=== PATIENT | female | born 1985 | race African-American/Black ===

== ENCOUNTER 2019-01-24 20:00 | Emergency (ER) | payer OTHER ==
[~2019-01-24] VITALS: Ht 162.6 cm; Wt 89.8 kg
--- OUTSIDE RECORDS SUMMARY | 2019-01-24 20:02 | XMS REPORT | Clinical Summary ---
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 Active folic acid (FOLVITE) 1 MG Take 1 mg by 0 tablet mouth daily. Active HYDROcodone-acetaminophen Take 1 tablet 0 (NORCO) 10-325 mg per by mouth tablet every 6 (six) hours as needed for moderate pain. Active hydroxyurea (HYDREA) 500 Take 1,000 mg 0 mg capsule by mouth daily. Active morPHINE (MSIR) 15 MG Take 30 mg by 0 tablet mouth every 6 (six) hours as needed for severe pain. 01/28/2018 Discontinued folic acid (FOLVITE) 1 MG Take 1 mg by 0 tablet mouth daily. 01/28/2018 Discontinued morPHINE (MSIR) 15 MG Take 30 mg by 0 tablet mouth every 6 (six) hours as needed for severe pain. 01/28/2018 Discontinued ALPRAZolam (XANAX) 1 MG Take 1 mg by 0 tablet mouth 3 (three) times a day as needed for anxiety. 01/28/2018 Discontinued cyclobenzaprine Take 10 mg by 0 (FLEXERIL) 10 mg tablet mouth 3 (three) times a day as needed for muscle spasms. 01/28/2018 Discontinued HYDROcodone-acetaminophen Take 1 tablet 0 (NORCO) 10-325 mg per by mouth tablet every 6 (six) hours as needed for moderate pain. 01/28/2018 Discontinued gabapentin (NEURONTIN) Take 300 mg 0 300 mg capsule by mouth 3 (three) times a day. 01/28/2018 Discontinued carisoprodol (SOMA) 350 TK 1 T PO QID 3 MG tablet 8 01/28/2018 Discontinued furosemide (LASIX) 40 mg TK 1 T PO 5 tablet UTD 8 01/28/2018 Discontinued hydroxyurea (HYDREA) 500 TK 4 CS PO D 5 mg capsule 8 Active Problems Problem Noted Date Acute cystitis without hematuria 01/29/2018 Sickle-cell crisis 01/29/2017 Sickle cell crisis 11/03/2016 Sickle cell anemia 07/23/2016 Headache 07/23/2016 Sickle cell pain crisis 04/28/2016 Encounters Care Team Description Date Type Specialty Rehrer, DO Nikunj Velazco Dhruti Bharatbhai, MD Bavare, Elayne Aragon MD Sickle cell crisis (Primary Dx); Urinary tract infection without hematuria, site unspecified 01/28/2018 Hospital Emergency Medicine Encounter N/A 01/28/2018 Intake Access after 01/23/2018 Family History Medical History Relation Name Comments Heart disease Father No Known Problems Mother Relation Name Status Comments Father Mother Social History Date Tobacco Use Types Packs/Day Years Used Never Smoker Alcohol Use Drinks/Week oz/Week Comments No Sex Assigned at Date Recorded Not on file Industry Job Start Date Occupation Not on file Not on file Not on file Travel End Travel History Travel Start No recent travel history available. Last Filed Vital Signs Time Taken Vital Sign Reading 01/28/2018 7:37 PM CDT Blood Pressure 117/68 01/28/2018 7:37 PM CDT Pulse 69 01/28/2018 1:20 PM CDT Temperature 37 C (98.6 F) 01/28/2018 7:37 PM CDT Respiratory Rate 16 01/28/2018 7:37 PM CDT Oxygen Saturation 100% - Inhaled Oxygen - Concentration - Weight - - Height - - Body Mass Index - Plan of Treatment Health Maintenance Due Date Last Done Comments INFLUENZA VACCINE 02/04/2019 Procedures Comments Procedure Name Priority Date/Time Associated Diagnosis TRANSFUSE RED BLOOD CELLS Routine 03/11/2018 5:32 PM CDT TRANSFUSE RED BLOOD CELLS Routine 03/11/2018 5:32 PM CDT TRANSFUSE RED BLOOD CELLS Routine 03/11/2018 5:29 PM CDT TRANSFUSE RED BLOOD CELLS Routine 03/11/2018 5:23 PM CDT URINALYSIS SCREEN AND STAT 01/28/2018 MICROSCOPY, WITH REFLEX 2:54 PM CDT TO CULTURE URINE DRUGS OF ABUSE STAT 01/28/2018 SCREEN 2:54 PM CDT GRAM STAIN STAT 01/28/2018 2:54 PM CDT URINE CULTURE STAT 01/28/2018 2:54 PM CDT ZZESTIMATED GFR STAT 01/28/2018 2:30 PM CDT LDH STAT 01/28/2018 2:30 PM CDT LIPASE LEVEL STAT 01/28/2018 2:30 PM CDT COMPREHENSIVE METABOLIC STAT 01/28/2018 PANEL 2:30 PM CDT RETICULOCYTE COUNT STAT 01/28/2018 2:30 PM CDT HC COMPLETE BLD COUNT STAT 01/28/2018 W/AUTO DIFF 2:30 PM CDT after 01/23/2018 Results * Transfuse RBC (03/11/2018 5:32 PM CDT) Only the most recent of 4 results within the time period is included. * Urinalysis screen and microscopy, with reflex to culture (01/28/2018 2:54 PM CDT) Specimen site Clean catch [facility] OF PATHOLOGY AND GENOMIC MEDICINE Color, UA Yellow [facility] OF [facility]OLOGY [facility] GENOMIC MEDICINE Appearance, UA Clear [facility] OF PATHOLOGY AND GENOMIC MEDICINE Specific 1.011 1.001 - 1.035 [facility] gravity, OF PATHOLOGY AND GENOMIC MEDICINE pH, UA 7.0 5.0 - 8.5 [facility] OF PATHOLOGY AND GENOMIC MEDICINE Protein, UA Negative Negative [facility] OF PATHOLOGY AND GENOMIC MEDICINE Glucose, UA Negative Negative [facility] OF PATHOLOGY AND GENOMIC MEDICINE Ketones, UA Negative Negative [facility] OF PATHOLOGY AND GENOMIC MEDICINE Bilirubin, UA Negative Negative [facility] OF PATHOLOGY AND GENOMIC MEDICINE Blood, UA Negative Negative [facility] OF PATHOLOGY AND GENOMIC MEDICINE Nitrite, UA Negative Negative [facility] OF PATHOLOGY AND GENOMIC MEDICINE Urobilinogen, 4.0 (A) <2.0 [facility] UA OF PATHOLOGY AND GENOMIC MEDICINE Leukocyte Small (A) Negative [facility] esterase, UA OF PATHOLOGY AND GENOMIC MEDICINE Epithelial 1 /HPF [facility] cells, UA OF PATHOLOGY AND GENOMIC MEDICINE WBC, UA 20 (H) 0 - 4 /HPF [facility] OF PATHOLOGY AND GENOMIC MEDICINE RBC, UA 2 0 - 5 /HPF [facility] OF PATHOLOGY AND GENOMIC MEDICINE Bacteria, UA Moderate (A) None seen [facility] OF PATHOLOGY AND GENOMIC MEDICINE Yeast, UA None seen [facility] OF PATHOLOGY AND GENOMIC MEDICINE Yeast with None seen [facility] pseudohyphae, OF PATHOLOGY UA AND GENOMIC MEDICINE Specimen Urine Performing Organization Address City/[facility] [address]/[facility] Phone [facility] OF [address] [place] [phone] PATHOLOGY AND [facility] * Urine drugs of abuse screen (01/28/2018 2:54 PM CDT) Amphetamine Negative [facility] screen, urine OF PATHOLOGY AND GENOMIC MEDICINE Barbiturate Negative [facility] screen, urine OF PATHOLOGY AND GENOMIC MEDICINE Benzodiazepine Negative [facility] screen, urine OF PATHOLOGY AND GENOMIC MEDICINE Cannabinoid Negative [facility] screen, urine OF PATHOLOGY AND [facility] Cocaine screen, Negative [facility] urine OF PATHOLOGY AND GENOMIC MEDICINE Methadone Negative [facility] metabolite OF PATHOLOGY (EDDP), urine AND GENOMIC MEDICINE Opiates screen, Negative [facility] urine OF PATHOLOGY AND GENOMIC MEDICINE Oxycodone Negative [facility] screen, urine OF PATHOLOGY AND [facility] Phencyclidine Negative [facility] screen, urine OF PATHOLOGY AND [facility] Tricyclic Negative [facility] screen, urine Comment: OF PATHOLOGY Drug screen minimum AND GENOMIC concentration of detectability MEDICINE Amphetamines 1000 ng/mL Barbiturates 200 ng/mL Benzodiazepines 300 ng/mL Cocaine 300 ng/mL Methadone 300 ng/mL Opiates 300 ng/mL Oxycodone 300 ng/mL Phencyclidine 25 ng/mL Cannabinoids 50 ng/mL Tricyclics 1000 ng/mL Negative test results indicates presumptive evidence of lack of clinically significant drug concentration in this urine specimen. Positive test results are presumptive evidence of clinically significant drug concentration in this urine specimen. Testing performed for medical purposes only. Specimen Urine Performing Organization Address City/[facility] [address]/[facility] Phone Number [facility] OF [address] [place] [phone] PATHOLOGY AND [facility] * Gram stain (01/28/2018 2:54 PM CDT) Gram stain Few WBC's [facility] result Occasional Gram negative rods OF PATHOLOGY Comment: AND GENOMIC Specimen Information MEDICINE Specimen Source: Urine Specimen Site: Clean catch Specimen Urine Performing Organization Address City/[facility] [address]/Zipcode Phone Number [facility] OF [address] [place] [address] PATHOLOGY AND GENOMIC MEDICINE * Urine culture (01/28/2018 2:54 PM CDT) Urine culture Escherichia coli [facility] isolate >10-5 cfu/ml OF PATHOLOGY (A) AND GENOMIC Comment: MEDICINE Specimen Information Specimen Source: Urine Specimen Site: Clean catch Specimen Urine Antibiotic Method Susceptibility Organism Ampicillin ALBERTINA >16 mcg/mL: Resistant Escherichia coli Amoxicillin/Clavulanate ALBERTINA 8/4 mcg/mL: Susceptible Escherichia coli Amikacin ALBERTINA <=4 mcg/mL: Susceptible Escherichia coli Aztreonam ALBERTINA <=1 mcg/mL: Susceptible Escherichia coli Ceftazidime ALBERTINA <=0.5 mcg/mL: Susceptible Escherichia coli Ciprofloxacin ALBERTINA >2 mcg/mL: Resistant Escherichia coli Ceftriaxone ALBERTINA <=0.5 mcg/mL: Susceptible Escherichia coli Cefuroxime Sodium ALBERTINA <=4 mcg/mL: Susceptible Escherichia coli Cefazolin ALBERTINA 2 mcg/mL: Susceptible Escherichia coli Cefepime ALBERTINA <=0.5 mcg/mL: Susceptible Escherichia coli Nitrofurantoin ALBERTINA <=16 mcg/mL: Susceptible Escherichia coli Cefoxitin ALBERTINA <=4 mcg/mL: Susceptible Escherichia coli Gentamicin ALBERTINA <=1 mcg/mL: Susceptible Escherichia coli Imipenem ALBERTINA <=0.25 mcg/mL: Susceptible Escherichia coli Levofloxacin ALBERTINA >4 mcg/mL: Resistant Escherichia coli Meropenem ALBERTINA <=0.125 mcg/mL: Susceptible Escherichia coli Tobramycin ALBERTINA 1 mcg/mL: Susceptible Escherichia coli Ampicillin/Sulbactam ALBERTINA 16/8 mcg/mL: Resistant Escherichia coli Trimethoprim/Sulfamethoxazole ALBERTINA <=0.5/9.5 mcg/mL: Susceptible Escherichia coli Tetracycline ALBERTINA <=1 mcg/mL: Susceptible Escherichia coli Piperacillin/Tazobactam ALBERTINA <=2/4 mcg/mL: Susceptible Escherichia coli Ertapenem ALBERTINA <=0.125 mcg/mL: Susceptible Escherichia coli Tigecycline ALBERTINA <=0.5 mcg/mL: Susceptible Escherichia coli Performing Organization Address City/[facility] [address]/Zipcode Phone Number [facility] OF [address] [place] [address] PATHOLOGY AND GENOMIC MEDICINE * Estimated GFR (01/28/2018 2:30 PM CDT) [facility] GFR Non Af Amer >90 mL/min/1.73 m2 [facility] OF PATHOLOGY AND GENOMIC MEDICINE GFR Af Amer >90 mL/min/1.73 m2 [facility] Comment: OF PATHOLOGY Chronic kidney disease: <60 AND GENOMIC mL/min/1.73m2 MEDICINE Kidney failure: <15 mL/min/1.73m2 The estimated GFR is calculated from the IDMS-traceable Modification of Diet in Renal Disease Equation. The accuracy of the calculation is poor when the creatinine is normal. Calculated values >90 mL/min/1.73m2 are not reported. This equation has not been validated in children (<18 years), women, the elderly (>70 years), or ethnic groups other than Caucasians and Americans. Specimen Plasma specimen Performing Organization Address City/[facility] [address]/[facility] [place] [address] PATHOLOGY [facility] * Reticulocyte count (01/28/2018 2:30 PM CDT) [facility] Retic %, auto 11.1 (H) 0.5 - 2.1 % [facility] OF PATHOLOGY AND GENOMIC MEDICINE Retic absolute, 0.3892 (H) 0.0210 - 0.1155 m/uL [facility] auto OF PATHOLOGY AND GENOMIC MEDICINE Specimen Blood Performing Organization Address City/[facility] [address]/[facility] [place] [address] PATHOLOGY [facility] GENOMIC [facility] * CBC with platelet and differential (01/28/2018 2:30 PM CDT) [facility] WBC 7.64Comment: WBC was corrected 4.50 - 11.00 k/uL [facility] for NRBCs OF PATHOLOGY AND GENOMIC MEDICINE RBC 3.50 (L) 4.20 - 5.50 m/uL [facility] OF PATHOLOGY AND GENOMIC MEDICINE HGB 9.6 (L) 12.0 - 16.0 g/dL [facility] OF PATHOLOGY AND GENOMIC MEDICINE HCT 30.0 (L) 37.0 - 47.0 % [facility] OF PATHOLOGY AND GENOMIC MEDICINE MCV 85.7 82.0 - 100.0 fL [facility] OF PATHOLOGY AND GENOMIC MEDICINE MCH 27.4 27.0 - 34.0 pg [facility] OF PATHOLOGY AND GENOMIC MEDICINE MCHC 32.0 31.0 - 37.0 g/dL [facility] OF PATHOLOGY AND GENOMIC MEDICINE RDW - SD 63.2 (H) 37.0 - 55.0 fL [facility] OF PATHOLOGY AND GENOMIC MEDICINE MPV 9.5 8.8 - 13.2 fL [facility] OF PATHOLOGY AND GENOMIC MEDICINE Platelet count 284 150 - 400 k/uL [facility] OF PATHOLOGY AND GENOMIC MEDICINE Nucleated RBC 1.00 /100 WBC [facility] OF PATHOLOGY AND GENOMIC MEDICINE Neutrophils 57.0 39.0 - 69.0 % [facility] OF PATHOLOGY AND GENOMIC MEDICINE Lymphocytes 31.9 25.0 - 45.0 % [facility] OF PATHOLOGY AND GENOMIC MEDICINE Monocytes 8.9 0.0 - 10.0 % [facility] OF PATHOLOGY AND GENOMIC MEDICINE Eosinophils 0.4 0.0 - 5.0 % [facility] OF PATHOLOGY AND GENOMIC MEDICINE Basophils 1.3 (H) 0.0 - 1.0 % [facility] OF PATHOLOGY AND GENOMIC MEDICINE Immature 0.5Comment: "Immature 0.0 - 1.0 % [facility] granulocytes granulocytes" (promyelocytes, OF PATHOLOGY myelocytes, metamyelocytes) AND GENOMIC MEDICINE Specimen Blood Performing Organization Address City/[facility] [address]/[place] [address] PATHOLOGY AND GENOMIC MEDICINE * Lipase level (01/28/2018 2:30 PM CDT) Lipase 16 13 - 60 U/L [facility] OF PATHOLOGY AND GENOMIC MEDICINE Specimen Plasma specimen Performing Organization Address City/[facility] [address]/[facility] [place] [address] PATHOLOGY AND GENOMIC MEDICINE * LDH (01/28/2018 2:30 PM CDT) LDH 340 (H) 87 - 225 U/L [facility] OF PATHOLOGY AND GENOMIC MEDICINE Specimen Plasma specimen Performing Organization Address City/[facility] [address]/[place] [address] PATHOLOGY AND GENOMIC MEDICINE * Comprehensive metabolic panel (01/28/2018 2:30 PM CDT) Sodium 137 135 - 148 mEq/L [facility] OF PATHOLOGY AND GENOMIC MEDICINE Potassium 4.0 3.5 - 5.0 mEq/L [facility] OF PATHOLOGY AND GENOMIC MEDICINE Chloride 103 98 - 112 mEq/L [facility] OF PATHOLOGY AND GENOMIC MEDICINE CO2 22 (L) 24 - 31 mEq/L [facility] OF PATHOLOGY AND GENOMIC MEDICINE Anion gap 12@ANIO 7 - 15 mEq/L [facility] OF PATHOLOGY AND GENOMIC MEDICINE BUN 7 6 - 20 mg/dL [facility] OF PATHOLOGY AND GENOMIC MEDICINE Creatinine 0.6 0.5 - 0.9 mg/dL [facility] OF PATHOLOGY AND GENOMIC MEDICINE Glucose 101 (H) 65 - 99 mg/dL [facility] OF PATHOLOGY AND GENOMIC MEDICINE Calcium 8.6 8.3 - 10.2 mg/dL [facility] OF PATHOLOGY AND GENOMIC MEDICINE Protein 8.4 (H) 6.3 - 8.3 g/dL [facility] Comment: OF PATHOLOGY [place] AND GENOMIC 4.6-7.0 g/dL MEDICINE 1 week 4.4-7.6 g/dL 7 months-1year 5.1-7.3 g/dL 1-2 years5.6-7 .5 g/dL >3 years6.0-8 .0 g/dL 18-150 6.3-8.3 g/dL Albumin 3.6 3.5 - 5.0 g/dL [facility] OF PATHOLOGY AND GENOMIC MEDICINE A/G ratio 0.8 0.7 - 3.8 [facility] OF PATHOLOGY AND GENOMIC MEDICINE Alkaline 81 35 - 104 U/L [facility] phosphatase OF PATHOLOGY AND GENOMIC MEDICINE AST 32 10 - 35 U/L [facility] OF PATHOLOGY AND GENOMIC MEDICINE ALT 23 5 - 50 U/L [facility] OF PATHOLOGY AND GENOMIC MEDICINE Total bilirubin 1.5 (H) 0.0 - 1.2 mg/dL [facility] OF PATHOLOGY AND GENOMIC MEDICINE Specimen Plasma specimen Performing Organization Address City/[facility] [address]/Zipcomd Phone Number [facility] OF [address] [place] [address] PATHOLOGY AND GENOMIC MEDICINE after 01/23/2018 Insurance Type Payer Benefit Subscriber ID Effective Phone Address Plan / Dates Group O [employer] xxxxxxxxx [id number] [employer] [facility] Advance Directives Patient has advance care planning documents on file. For more information, pleas e contact: Jan Warren [address] [place] [address]
--- OUTSIDE RECORDS SUMMARY | 2019-01-24 20:02 | XMS REPORT | Clinical Summary ---
Author Author [place] [facility] Organization [facility] Address Unknown Phone Unavailable Care Team Providers Care Drawer Liner Name Role Phone Farhan Torres MD PCP Unavailable Sharpless Unavailable Allergies No Known Allergies Medications End Date Status Medication Sig Dispensed Refills Start Date Active hydroxyurea (HYDREA) 500 Take 500 mg 0 mg capsule by mouth daily . Active folic acid (FOLVITE) 1 MG Take 1 tablet 30 tablet 1 tablet (1 mg total) 3 by mouth daily. Active gabapentin (NEURONTIN) TK 1 C PO TID 5 300 MG capsule 8 Active morphine (MSIR) 30 MG Take 1 tablet 100 tablet 0 tablet (30 mg total) 9 by mouth every 4 (four) hours as needed for Pain. Max Daily Amount: 180 mg Active HYDROcodone-acetaminophen Take 1 tablet 30 tablet 0 (NORCO 10-325) 10-325 mg by mouth 9 per tablet every 6 (six) hours as needed for Pain. Max Daily Amount: 4 tablets 07/17/2018 Discontinued morphine (MSIR) 30 MG Take 30 mg by 0 tablet mouth every 4 (four) hours as needed for Pain. 12/29/2018 Discontinued ibuprofen (ADVIL,MOTRIN) Take 800 mg 0 600 MG tablet by mouth every 6 (six) hours as needed for Pain . 03/09/2018 Discontinued polyethylene glycol Use once to 0 (GLYCOLAX) 17 gram packet twice a day 7 per package instructions. Is over the counter. 07/17/2018 Discontinued HYDROcodone-acetaminophen Take 1 tablet 0 (NORCO 10-325) 10-325 mg by mouth per tablet every 6 (six) hours as needed for Pain. 04/08/2018 guaiFENesin (MUCINEX) 600 Take 1 tablet 60 tablet 0 mg 12 hr tablet (600 mg 8 total) by mouth 2 (two) times daily as needed for Congestion for up to 30 days. 03/16/2018 ondansetron (ZOFRAN-ODT) Take 2 20 tablet 0 4 MG disintegrating tablets (8 mg 8 tablet total) by mouth every 8 (eight) hours as needed for up to 7 days. 03/16/2018 levoFLOXacin (LEVAQUIN) Take 1 tablet 6 tablet 0 500 MG tablet (500 mg 8 total) by mouth daily for 6 days. 07/02/2018 Discontinued carisoprodol (SOMA) 350 Take 350 mg 0 MG tablet by mouth. 07/17/2018 Discontinued carisoprodol (SOMA) 350 TK 1 T PO QID 0 MG tablet 8 01/03/2019 Discontinued carisoprodol (SOMA) 350 Take 1 tablet 30 tablet 0 MG tablet (350 mg 9 total) by mouth 4 (four) times daily. Max Daily Amount: 1,400 mg 01/03/2019 Discontinued HYDROcodone-acetaminophen Take 1 tablet 30 tablet 0 (NORCO 10-325) 10-325 mg by mouth 9 per tablet every 6 (six) hours as needed for Pain. Max Daily Amount: 4 tablets 09/07/2018 Discontinued naproxen (NAPROSYN) 500 Take 1 tablet 30 tablet 0 MG tablet (500 mg 9 total) by mouth 2 (two) times daily with breakfast and dinner. 01/03/2019 Discontinued morphine (MSIR) 15 MG Take 30 mg by 0 tablet mouth every 4 (four) hours as needed for Pain. 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 Sickle cell crisis 05/18/2013 Sickle cell pain crisis 02/12/2013 Headache 02/12/2013 Encounters Care Team Description Date Type Specialty 12/30/2018 Travel Fannie Zarco MD Giveon, Ron, MD Kazim, Vickie Stallings MD Sickle cell pain crisis (HCC) (Primary Dx); Acute cystitis without hematuria 12/29/2018 Hospital General Internal Medicine - Encounter 01/03/2019 Butch Sandoval DO Sickle cell crisis (HCC) (Primary Dx); Acute chest pain; Acute midline low back pain without sciatica; Bilateral leg pain 12/09/2018 Emergency Emergency Medicine 12/09/2018 Orders Only General Internal Medicine 12/09/2018 Travel 08/27/2018 Travel Jordan Moreno III, DO Hasan, Syed Ali Reza, MD Massumi, MD Ricarda Joe, MD Karin Washington, MD Marian Killian, Chandrakant Lin MD Sickle cell crisis (HCC) (Primary Dx); Anemia, unspecified type 08/26/2018 Hospital Oncology - Encounter 09/07/2018 08/26/2018 Travel Hunter Sandoval MD Sickle cell pain crisis (HCC) (Primary Dx); Sickle cell anemia with pain (HCC); Myalgia; Arthralgia, unspecified joint 08/06/2018 Emergency Emergency Medicine - 08/07/2018 Fannie Zarco MD Sickle cell pain crisis (HCC) (Primary Dx); Acute midline low back pain without sciatica; Pain in both lower extremities 08/04/2018 Emergency Emergency Medicine - 08/05/2018 08/04/2018 Travel 07/13/2018 Travel Amari Zafar MD Varughese, Roy, MD Daniel, Jamuna V., MD Sickle cell pain crisis (HCC) (Primary Dx); Hereditary hemolytic anemia (HCC) 07/12/2018 Hospital Oncology - Encounter 07/17/2018 07/12/2018 Travel 06/27/2018 Travel Kai Gilman MD Yoon, Alyssa Hyunna, MD Sickle cell pain crisis (HCC) (Primary Dx) 06/26/2018 Hospital Oncology - Encounter 07/02/2018 06/25/2018 Orders Only General Internal Medicine 06/25/2018 Travel Kai Gilman MD Yoon, Alyssa Hyunna, MD Daniel, Jamuna V., MD Hasan, Chandrakant Diamond MD Fever, unspecified fever cause (Primary Dx); Hb-SS disease with crisis (HCC) 03/05/2018 Hospital Oncology - Encounter 03/09/2018 03/04/2018 Orders Only General Internal Medicine David Epstein MD Hb-SS disease with crisis (HCC) (Primary Dx); Arthralgia, unspecified joint; Myalgia; Hypokalemia 02/19/2018 Emergency Emergency Medicine after 01/23/2018 Family History Medical History Relation Name Comments No Known Problem Brother Sickle cell anemia Daughter Diabetes Father No Known Problem Mother No Known Problem Sister Sickle cell anemia Son Relation Name Status Comments Brother Daughter Father Mother Sister Son Social History Date Tobacco Use Types Packs/Day Years Used Never Smoker Smokeless Tobacco: Never Used Alcohol Use Drinks/Week oz/Week Comments No Sex Assigned at Date Recorded Not on file Industry Job Start Date Occupation Not on file Not on file Not on file Travel End Travel History Travel Start No recent travel history available. Last Filed Vital Signs Time Taken Vital Sign Reading 01/03/2019 11:48 AM CDT Blood Pressure 106/58 01/03/2019 11:48 AM CDT Pulse 73 01/03/2019 11:48 AM CDT Temperature 37.2 C (99 F) 01/03/2019 1:31 PM CDT Respiratory Rate 18 01/03/2019 11:48 AM CDT Oxygen Saturation 98% 06/27/2018 12:35 AM TEAM PRIMARY CARE PHYSICIAN Inhaled Oxygen 21% Concentration 01/03/2019 6:00 AM CDT Weight 95 kg (209 lb 8 oz) 12/30/2018 5:38 AM CDT Height 162.6 cm (5' 4") 01/03/2019 6:00 AM CDT Body Mass Index 35.96 Plan of Treatment Not on file Procedures Comments Procedure Name Priority Date/Time Associated Diagnosis CBC W/PLT COUNT & AUTO Routine 01/03/2019 DIFFERENTIAL 5:47 AM CDT MAGNESIUM Routine 01/03/2019 5:47 AM CDT BASIC METABOLIC PANEL (7) Routine 01/03/2019 5:47 AM CDT CBC W/PLT COUNT & AUTO Routine 01/03/2019 DIFFERENTIAL 5:47 AM CDT TRANSFUSION SERVICE 01/02/2019 REPORT - SCAN 5:51 PM CDT CBC W/PLT COUNT & AUTO Routine 01/02/2019 DIFFERENTIAL 4:56 AM CDT MAGNESIUM Routine 01/02/2019 4:56 AM CDT BASIC METABOLIC PANEL (7) Routine 01/02/2019 4:56 AM CDT CBC W/PLT COUNT & AUTO Routine 01/02/2019 DIFFERENTIAL 4:56 AM CDT PREPARE LEUKO-REDUCED RBC Routine 01/01/2019 11:54 PM CDT TRANSFUSION SERVICE 01/01/2019 REPORT - SCAN 5:51 PM CDT CBC W/PLT COUNT & AUTO Routine 01/01/2019 DIFFERENTIAL 5:08 AM CDT MAGNESIUM Routine 01/01/2019 5:08 AM CDT BASIC METABOLIC PANEL (7) Routine 01/01/2019 5:08 AM CDT CBC W/PLT COUNT & AUTO Routine 01/01/2019 DIFFERENTIAL 5:08 AM CDT ANTIBODY IDENTIFICATION Routine 12/31/2018 6:28 PM CDT TRANSFUSE LEUKO-REDUCED Routine 12/31/2018 RED BLOOD CELLS 5:50 PM CDT TYPE AND SCREEN, Routine 12/31/2018 AUTOMATED 9:41 AM CDT MAGNESIUM Routine 12/31/2018 9:41 AM CDT BASIC METABOLIC PANEL (7) Routine 12/31/2018 9:41 AM CDT CBC W/PLT COUNT & AUTO Routine 12/31/2018 DIFFERENTIAL 4:13 AM CDT CBC W/PLT COUNT & AUTO Routine 12/31/2018 DIFFERENTIAL 4:13 AM CDT BLOOD CULTURE Routine 12/31/2018 4:13 AM CDT US RENAL COMPLETE Routine 12/30/2018 5:59 PM CDT URINALYSIS W/ REFLEX STAT 12/30/2018 URINE CULTURE 12:18 AM CDT URINE CULTURE STAT 12/30/2018 12:18 AM CDT RETICULOCYTE COUNT STAT 12/29/2018 11:15 PM CDT CBC W/PLT COUNT & AUTO STAT 12/29/2018 DIFFERENTIAL 10:39 PM CDT SCREEN, URINE STAT 12/29/2018 10:39 PM CDT CBC W/PLT COUNT & AUTO STAT 12/29/2018 DIFFERENTIAL 10:39 PM CDT BASIC METABOLIC PANEL (7) STAT 12/29/2018 10:39 PM CDT XR CHEST 1 VIEW STAT 12/29/2018 PORTABLE/BEDSIDE 10:12 PM CDT REPORT OF PROCEDURE - 12/10/2018 ENDOSCOPY SCAN 11:00 AM CDT ED ECG INTERPRETATION Routine 12/09/2018 1:07 PM CDT XR CHEST PA OR AP 1 VIEW STAT 12/09/2018 IN DEPT. 12:46 PM CDT ECG 12-LEAD Routine 12/09/2018 12:44 PM CDT Procedure Note - Interface, External Ris In - 12/09/2018 8:57 PM CDT Ventricula r Rate 83 BPM Atrial Rate 83 BPM P-R Interval 154 ms QRS Duration 76 ms Q-T Interval 380 ms QTC Calculatio n(Bazett) 446 ms P [place] 43 degrees R [place] 14 degrees T [place] 5 degrees Normal sinus rhythm Minimal voltage criteria for LVH, may be normal variant Borderline ECG When compared with ECG of 9 11:50, T wave inversion no longer evident in Anterior leads ECG 12-LEAD STAT 12/09/2018 12:44 PM CDT CBC W/PLT COUNT & AUTO STAT 12/09/2018 DIFFERENTIAL 12:38 PM CDT RAPID TROPONIN I STAT 12/09/2018 12:38 PM CDT RETICULOCYTE COUNT STAT 12/09/2018 12:38 PM CDT PT/APTT STAT 12/09/2018 12:38 PM CDT COMPREHENSIVE METABOLIC STAT 12/09/2018 PANEL 12:38 PM CDT CBC W/PLT COUNT & AUTO STAT 12/09/2018 DIFFERENTIAL 12:38 PM CDT SCREEN, URINE STAT 12/09/2018 12:38 PM CDT URINALYSIS W/ MICROSCOPIC STAT 12/09/2018 12:38 PM CDT ECHOCARDIOGRAM REPORT - 09/06/2018 SCAN 9:20 PM TEAM PRIMARY CARE PHYSICIAN 2D ECHO W/ DOPPLER MONIQUE 09/06/2018 (CW/PW/COLOR) 2:14 PM TEAM PRIMARY CARE PHYSICIAN (CELLAVISION MANUAL DIFF) Routine 09/06/2018 4:07 AM TEAM PRIMARY CARE PHYSICIAN CBC W/PLT COUNT & AUTO Routine 09/06/2018 DIFFERENTIAL 4:07 AM TEAM PRIMARY CARE PHYSICIAN CBC W/PLT COUNT & AUTO Routine 09/06/2018 DIFFERENTIAL 4:07 AM TEAM PRIMARY CARE PHYSICIAN CT CHEST PE TEST DESIGN MONIQUE 09/05/2018 5:18 PM TEAM PRIMARY CARE PHYSICIAN D-DIMER Routine 09/04/2018 6:15 PM TEAM PRIMARY CARE PHYSICIAN CBC W/PLT COUNT & AUTO Routine 09/04/2018 DIFFERENTIAL 3:06 AM TEAM PRIMARY CARE PHYSICIAN CBC W/PLT COUNT & AUTO Routine 09/04/2018 DIFFERENTIAL 3:06 AM TEAM PRIMARY CARE PHYSICIAN SCREEN, URINE Routine 09/03/2018 2:44 PM TEAM PRIMARY CARE PHYSICIAN XR CHEST 1 VIEW MONIQUE 09/03/2018 PORTABLE/BEDSIDE 12:37 PM TEAM PRIMARY CARE PHYSICIAN ECG 12-LEAD Routine 09/03/2018 11:50 AM TEAM PRIMARY CARE PHYSICIAN CBC W/PLT COUNT & AUTO Routine 09/02/2018 DIFFERENTIAL 5:04 AM TEAM PRIMARY CARE PHYSICIAN CBC W/PLT COUNT & AUTO Routine 09/02/2018 DIFFERENTIAL 5:04 AM TEAM PRIMARY CARE PHYSICIAN BASIC METABOLIC PANEL (7) Routine 09/02/2018 5:04 AM TEAM PRIMARY CARE PHYSICIAN CBC W/PLT COUNT & AUTO Routine 09/01/2018 DIFFERENTIAL 4:15 AM TEAM PRIMARY CARE PHYSICIAN CBC W/PLT COUNT & AUTO Routine 09/01/2018 DIFFERENTIAL 4:15 AM TEAM PRIMARY CARE PHYSICIAN BASIC METABOLIC PANEL (7) Routine 09/01/2018 4:15 AM TEAM PRIMARY CARE PHYSICIAN BASIC METABOLIC PANEL (7) Routine 08/31/2018 4:57 AM TEAM PRIMARY CARE PHYSICIAN XR CHEST 1 VIEW STAT 08/31/2018 PORTABLE/BEDSIDE 3:45 AM TEAM PRIMARY CARE PHYSICIAN URINALYSIS W/ REFLEX Routine 08/30/2018 URINE CULTURE 11:49 AM TEAM PRIMARY CARE PHYSICIAN URINE CULTURE Routine 08/30/2018 11:49 AM TEAM PRIMARY CARE PHYSICIAN BASIC METABOLIC PANEL (7) Routine 08/30/2018 9:03 AM TEAM PRIMARY CARE PHYSICIAN XR HIP LEFT 2 VIEW Routine 08/29/2018 12:26 PM TEAM PRIMARY CARE PHYSICIAN XR HIP RIGHT 2 VIEW Routine 08/29/2018 12:21 PM TEAM PRIMARY CARE PHYSICIAN CBC W/PLT COUNT & AUTO Routine 08/29/2018 DIFFERENTIAL 6:02 AM TEAM PRIMARY CARE PHYSICIAN CBC W/PLT COUNT & AUTO Routine 08/29/2018 DIFFERENTIAL 6:02 AM TEAM PRIMARY CARE PHYSICIAN BASIC METABOLIC PANEL (7) Routine 08/29/2018 6:02 AM TEAM PRIMARY CARE PHYSICIAN BASIC METABOLIC PANEL (7) Routine 08/28/2018 7:17 AM TEAM PRIMARY CARE PHYSICIAN CBC W/PLT COUNT & AUTO Routine 08/28/2018 DIFFERENTIAL 4:44 AM TEAM PRIMARY CARE PHYSICIAN CBC W/PLT COUNT & AUTO Routine 08/28/2018 DIFFERENTIAL 4:44 AM TEAM PRIMARY CARE PHYSICIAN CBC W/PLT COUNT & AUTO Routine 08/27/2018 DIFFERENTIAL 4:58 AM TEAM PRIMARY CARE PHYSICIAN RETICULOCYTE COUNT Routine 08/27/2018 4:58 AM TEAM PRIMARY CARE PHYSICIAN CBC W/PLT COUNT & AUTO Routine 08/27/2018 DIFFERENTIAL 4:58 AM TEAM PRIMARY CARE PHYSICIAN HEPATIC FUNCTION PANEL Routine 08/27/2018 4:58 AM TEAM PRIMARY CARE PHYSICIAN BASIC METABOLIC PANEL (7) Routine 08/27/2018 4:58 AM TEAM PRIMARY CARE PHYSICIAN CBC W/PLT COUNT & AUTO STAT 08/26/2018 DIFFERENTIAL 8:26 PM TEAM PRIMARY CARE PHYSICIAN RETICULOCYTE COUNT STAT 08/26/2018 8:26 PM TEAM PRIMARY CARE PHYSICIAN PT/APTT STAT 08/26/2018 8:26 PM TEAM PRIMARY CARE PHYSICIAN COMPREHENSIVE METABOLIC STAT 08/26/2018 PANEL 8:26 PM TEAM PRIMARY CARE PHYSICIAN CBC W/PLT COUNT & AUTO STAT 08/26/2018 DIFFERENTIAL 8:26 PM TEAM PRIMARY CARE PHYSICIAN RAPID DRUG SCREEN, URINE STAT 08/06/2018 10:41 PM TEAM PRIMARY CARE PHYSICIAN CBC W/PLT COUNT & AUTO STAT 08/06/2018 DIFFERENTIAL 10:40 PM TEAM PRIMARY CARE PHYSICIAN RETICULOCYTE COUNT STAT 08/06/2018 10:40 PM TEAM PRIMARY CARE PHYSICIAN CBC W/PLT COUNT & AUTO STAT 08/06/2018 DIFFERENTIAL 10:40 PM TEAM PRIMARY CARE PHYSICIAN CBC W/PLT COUNT & AUTO STAT 08/04/2018 DIFFERENTIAL 11:55 PM TEAM PRIMARY CARE PHYSICIAN BASIC METABOLIC PANEL (7) STAT 08/04/2018 11:55 PM TEAM PRIMARY CARE PHYSICIAN RETICULOCYTE COUNT STAT 08/04/2018 11:55 PM TEAM PRIMARY CARE PHYSICIAN CBC W/PLT COUNT & AUTO STAT 08/04/2018 DIFFERENTIAL 11:55 PM TEAM PRIMARY CARE PHYSICIAN CBC (HEMOGRAM ONLY) Routine 07/17/2018 5:00 AM TEAM PRIMARY CARE PHYSICIAN BASIC METABOLIC PANEL (7) Routine 07/17/2018 5:00 AM TEAM PRIMARY CARE PHYSICIAN CBC (HEMOGRAM ONLY) Routine 07/16/2018 3:50 AM TEAM PRIMARY CARE PHYSICIAN BASIC METABOLIC PANEL (7) Routine 07/16/2018 3:50 AM TEAM PRIMARY CARE PHYSICIAN CBC (HEMOGRAM ONLY) Routine 07/15/2018 5:29 AM TEAM PRIMARY CARE PHYSICIAN BASIC METABOLIC PANEL (7) Routine 07/15/2018 5:29 AM TEAM PRIMARY CARE PHYSICIAN CBC (HEMOGRAM ONLY) Routine 07/14/2018 6:07 AM TEAM PRIMARY CARE PHYSICIAN BASIC METABOLIC PANEL (7) Routine 07/14/2018 6:07 AM TEAM PRIMARY CARE PHYSICIAN ECG 12-LEAD STAT 07/13/2018 11:59 AM TEAM PRIMARY CARE PHYSICIAN TROPONIN I STAT 07/13/2018 11:58 AM TEAM PRIMARY CARE PHYSICIAN CBC (HEMOGRAM ONLY) Routine 07/13/2018 6:10 AM TEAM PRIMARY CARE PHYSICIAN BASIC METABOLIC PANEL (7) Routine 07/13/2018 6:10 AM TEAM PRIMARY CARE PHYSICIAN XR CHEST 2 VIEWS STAT 07/12/2018 6:27 PM TEAM PRIMARY CARE PHYSICIAN CBC W/PLT COUNT & AUTO STAT 07/12/2018 DIFFERENTIAL 6:26 PM TEAM PRIMARY CARE PHYSICIAN RETICULOCYTE COUNT STAT 07/12/2018 6:26 PM TEAM PRIMARY CARE PHYSICIAN COMPREHENSIVE METABOLIC STAT 07/12/2018 PANEL 6:26 PM TEAM PRIMARY CARE PHYSICIAN CBC W/PLT COUNT & AUTO STAT 07/12/2018 DIFFERENTIAL 6:26 PM TEAM PRIMARY CARE PHYSICIAN SCREEN, URINE STAT 07/12/2018 4:22 PM TEAM PRIMARY CARE PHYSICIAN URINALYSIS W/ MICROSCOPIC STAT 07/12/2018 4:22 PM TEAM PRIMARY CARE PHYSICIAN TRANSFUSION SERVICE 07/02/2018 REPORT - SCAN 6:00 PM TEAM PRIMARY CARE PHYSICIAN BASIC METABOLIC PANEL (7) Routine 07/02/2018 6:25 AM TEAM PRIMARY CARE PHYSICIAN PREPARE LEUKO-REDUCED RBC Routine 07/01/2018 11:54 PM TEAM PRIMARY CARE PHYSICIAN TRANSFUSION SERVICE 07/01/2018 REPORT - SCAN 6:00 PM TEAM PRIMARY CARE PHYSICIAN ANTIBODY IDENTIFICATION Routine 07/01/2018 3:18 PM TEAM PRIMARY CARE PHYSICIAN LIPASE Routine 07/01/2018 12:37 PM TEAM PRIMARY CARE PHYSICIAN HEPATIC FUNCTION PANEL Routine 07/01/2018 12:37 PM TEAM PRIMARY CARE PHYSICIAN CBC (HEMOGRAM ONLY) Routine 07/01/2018 5:09 AM TEAM PRIMARY CARE PHYSICIAN BASIC METABOLIC PANEL (7) Routine 07/01/2018 5:09 AM TEAM PRIMARY CARE PHYSICIAN TRANSFUSE LEUKO-REDUCED Routine 06/30/2018 RED BLOOD CELLS 6:19 PM TEAM PRIMARY CARE PHYSICIAN TYPE AND SCREEN, Routine 06/30/2018 AUTOMATED 11:48 AM TEAM PRIMARY CARE PHYSICIAN CBC (HEMOGRAM ONLY) Routine 06/30/2018 4:18 AM TEAM PRIMARY CARE PHYSICIAN BASIC METABOLIC PANEL (7) Routine 06/30/2018 4:18 AM TEAM PRIMARY CARE PHYSICIAN BASIC METABOLIC PANEL (7) Routine 06/29/2018 7:08 AM TEAM PRIMARY CARE PHYSICIAN CBC (HEMOGRAM ONLY) Routine 06/29/2018 3:55 AM TEAM PRIMARY CARE PHYSICIAN CBC (HEMOGRAM ONLY) Routine 06/28/2018 4:49 AM TEAM PRIMARY CARE PHYSICIAN BASIC METABOLIC PANEL (7) Routine 06/28/2018 4:49 AM TEAM PRIMARY CARE PHYSICIAN BASIC METABOLIC PANEL (7) Routine 06/27/2018 5:32 AM TEAM PRIMARY CARE PHYSICIAN SCREEN, URINE STAT 06/26/2018 7:14 AM TEAM PRIMARY CARE PHYSICIAN URINALYSIS W/ REFLEX STAT 06/26/2018 URINE CULTURE 7:14 AM TEAM PRIMARY CARE PHYSICIAN XR CHEST 1 VIEW STAT 06/26/2018 PORTABLE/BEDSIDE 5:43 AM TEAM PRIMARY CARE PHYSICIAN CBC W/PLT COUNT & AUTO STAT 06/26/2018 DIFFERENTIAL 5:19 AM TEAM PRIMARY CARE PHYSICIAN RETICULOCYTE COUNT STAT 06/26/2018 5:19 AM TEAM PRIMARY CARE PHYSICIAN BASIC METABOLIC PANEL (7) STAT 06/26/2018 5:19 AM TEAM PRIMARY CARE PHYSICIAN CBC W/PLT COUNT & AUTO STAT 06/26/2018 DIFFERENTIAL 5:19 AM TEAM PRIMARY CARE PHYSICIAN ED ECG INTERPRETATION Routine 06/26/2018 5:06 AM TEAM PRIMARY CARE PHYSICIAN ECG 12-LEAD Routine 06/25/2018 10:53 PM TEAM PRIMARY CARE PHYSICIAN Procedure Note - Interface, External Ris In - 06/25/2018 11:03 PM TEAM PRIMARY CARE PHYSICIAN Ventricula r Rate 80 BPM Atrial Rate 80 BPM P-R Interval 154 ms QRS Duration 82 ms Q-T Interval 400 ms QTC Calculatio n(Bazett) 461 ms P [place] 40 degrees R [place] 21 degrees T [place] -3 degrees Normal sinus rhythm Nonspecifi c T wave abnormalit y Prolonged QT Abnormal ECG When compared with ECG of 8 22:46, No significan t change was found ECG 12-LEAD STAT 06/25/2018 10:53 PM TEAM PRIMARY CARE PHYSICIAN XR CHEST 2 VIEWS STAT 03/09/2018 9:08 AM CDT MAGNESIUM Routine 03/09/2018 4:58 AM CDT CBC (HEMOGRAM ONLY) Routine 03/09/2018 4:58 AM CDT BASIC METABOLIC PANEL (7) Routine 03/09/2018 4:58 AM CDT TRANSFUSION SERVICE 03/08/2018 REPORT - SCAN 6:00 PM CDT SPUTUM CULTURE + GRAM Routine 03/08/2018 STAIN 5:26 PM CDT MAGNESIUM Routine 03/08/2018 6:13 AM CDT CBC (HEMOGRAM ONLY) Routine 03/08/2018 6:13 AM CDT BASIC METABOLIC PANEL (7) Routine 03/08/2018 6:13 AM CDT PREPARE RBC STAT 03/07/2018 11:54 PM CDT CBC (HEMOGRAM ONLY) Routine 03/07/2018 10:36 AM CDT MAGNESIUM Routine 03/07/2018 5:35 AM CDT BASIC METABOLIC PANEL (7) Routine 03/07/2018 5:35 AM CDT TRANSFUSE LEUKO-REDUCED Routine 03/06/2018 RED BLOOD CELLS 9:11 PM CDT TRANSFUSION SERVICE 03/06/2018 REPORT - SCAN 6:01 PM CDT LEGIONELLA URINE ANTIGEN Routine 03/06/2018 5:55 PM CDT STREP PNEUMONIAE ANTIGEN Routine 03/06/2018 5:55 PM CDT MRSA SCREEN Routine 03/06/2018 5:50 PM CDT TRANSFUSE LEUKO-REDUCED Routine 03/06/2018 RED BLOOD CELLS 1:31 PM CDT CBC W/PLT COUNT & AUTO Routine 03/06/2018 DIFFERENTIAL 5:42 AM CDT HEPATIC FUNCTION PANEL Routine 03/06/2018 5:42 AM CDT IRON, TIBC, % SAT. Routine 03/06/2018 (WITHOUT FERRITIN) 5:42 AM CDT FERRITIN Routine 03/06/2018 5:42 AM CDT RETICULOCYTE COUNT Routine 03/06/2018 5:42 AM CDT CBC W/PLT COUNT & AUTO Routine 03/06/2018 DIFFERENTIAL 5:42 AM CDT MAGNESIUM Routine 03/06/2018 5:42 AM CDT BASIC METABOLIC PANEL (7) Routine 03/06/2018 5:42 AM CDT ANTIBODY IDENTIFICATION STAT 03/05/2018 4:32 PM CDT TYPE AND SCREEN, STAT 03/05/2018 AUTOMATED 6:[address] CHEST WITHOUT IV STAT 03/05/2018 CONTRAST 6:26 AM CDT URINALYSIS W/ REFLEX STAT 03/05/2018 URINE CULTURE 6:03 AM CDT URINE CULTURE STAT 03/05/2018 6:03 AM CDT BLOOD CULTURE STAT 03/05/2018 4:43 AM CDT ED ECG INTERPRETATION Routine 03/05/2018 4:27 AM CDT POCT-LACTIC ACID, VENOUS Routine 03/05/2018 3:53 AM CDT SCREEN, URINE STAT 03/05/2018 3:39 AM CDT BLOOD CULTURE STAT 03/05/2018 3:39 AM CDT CBC W/PLT COUNT & AUTO STAT 03/05/2018 DIFFERENTIAL 2:54 AM CDT RETICULOCYTE COUNT STAT 03/05/2018 2:54 AM CDT CREATINE KINASE (CK), STAT 03/05/2018 TOTAL AND MB 2:54 AM CDT PT/APTT STAT 03/05/2018 2:54 AM CDT CBC W/PLT COUNT & AUTO STAT 03/05/2018 DIFFERENTIAL 2:54 AM CDT TROPONIN I STAT 03/05/2018 2:54 AM CDT B-TYPE NATRIURETIC FACTOR STAT 03/05/2018 (BNP) 2:54 AM CDT MAGNESIUM STAT 03/05/2018 2:54 AM CDT BASIC METABOLIC PANEL (7) STAT 03/05/2018 2:54 AM CDT XR CHEST 1 VIEW STAT 03/04/2018 PORTABLE/BEDSIDE 11:59 PM CDT ECG 12-LEAD STAT 03/04/2018 10:46 PM CDT CBC W/PLT COUNT & AUTO STAT 02/19/2018 DIFFERENTIAL 3:55 PM CDT RETICULOCYTE COUNT STAT 02/19/2018 3:55 PM CDT C-REACTIVE PROTEIN STAT 02/19/2018 3:55 PM CDT CBC W/PLT COUNT & AUTO STAT 02/19/2018 DIFFERENTIAL 3:55 PM CDT BASIC METABOLIC PANEL (7) STAT 02/19/2018 3:55 PM CDT after 01/23/2018 Results * CBC with platelet count + automated diff (01/03/2019 5:47 AM CDT) Only the most recent of 21 results within the time period is included. WBC 7.6 3.5 - 10.5 K/L [facility] RBC 3.06 (L) 3.93 - 5.22 M/L [facility] Hemoglobin 8.5 (L) 11.2 - 15.7 GM/DL [facility] Hematocrit 26.4 (L) 34.1 - 44.9 % [facility] MCV 86.3 79.4 - 94.8 fL [facility] MCH 27.8 25.6 - 32.2 pg [facility] MCHC 32.2 32.2 - 35.5 GM/DL [facility] RDW 17.6 (H) 11.7 - 14.4 % [facility] Platelets 276 150 - 450 K/CU MM [facility] MPV 10.4 9.4 - 12.3 fL [facility] nRBC 0 0 - 0 /100 WBC [facility] % Neutros 54 % [facility] % Lymphs 31 % [facility] % Monos 8 % [facility] % Eos 5 % [facility] % Baso 1 % [facility] # Neutros 4.15 1.56 - 6.13 K/L [facility] # Lymphs 2.35 1.18 - 3.74 K/L [facility] # Monos 0.63 (H) 0.24 - 0.36 K/L [facility] # Eos 0.35 0.04 - 0.36 K/L [facility] # Baso 0.09 (H) 0.01 - 0.08 K/L [facility] Immature 1 0 - 1 % [facility] Granulocytes-Relative [facility] Specimen Blood Performing Organization Address City/[facility]/Zipcode Phone Number [facility] [address] [place] [address] [facility] * Magnesium (01/03/2019 5:47 AM CDT) Only the most recent of 9 results within the time period is included. Magnesium 1.7Comment: Specimen slightly 1.6 - 2.6 mg/dL [facility] hemolyzed [facility] Specimen Blood Performing Organization Address City/[facility]/Zipcode Phone Number [facility] [address] [place] [address] [facility] * Basic Metabolic Panel (01/03/2019 5:47 AM CDT) Only the most recent of 31 results within the time period is included. Sodium 136 136 - 145 meq/L [facility] Potassium 3.9Comment: Specimen slightly 3.5 - 5.1 meq/L [facility] Chloride 108 (H) 98 - 107 meq/L [facility] CO2 22 22 - 29 meq/L [facility] BUN 7 7 - 21 mg/dL [facility] Creatinine 0.69Comment: Specimen slightly 0.57 - 1.25 mg/dL [facility] Glucose 98 70 - 105 mg/dL [facility] Calcium 8.2 (L) 8.4 - 10.2 mg/dL [facility] EGFR 117Comment: ESTIMATED GFR IS mL/min/1.73 sq m [facility] NOT ACCURATE CREATININE [facility] CLEARANCE IN PREDICTING GLOMERULAR FILTRATION RATE. ESTIMATED GFR IS NOT APPLICABLE FOR DIALYSIS PATIENTS. Specimen Blood Performing Organization Address City/State/Zipcode Phone Number [place] [phone] [place] [phone] * TRANSFUSION SERVICE REPORT - SCAN (01/02/2019 5:51 PM CDT) Only the most recent of 6 results within the time period is included. Narrative Performed At * Prepare Leuko-Red RBC (01/01/2019 11:54 PM CDT) Only the most recent of 2 results within the time period is included. Unit ABO O Neg [place] UNIT NUMBER [id number] [facility] [place] Status TX_TIMEINCHART [facility] [place] [facility] Product RED BLOOD CELLS [place] PRODUCT CODE [id number] [place] [place] CROSSMATCH COMPATIBLE [facility] [place] Specimen Other Performing Organization Address City/State/[facility] [place] * Antibody identification (12/31/2018 6:28 PM CDT) Only the most recent of 3 results within the time period is included. ANTIBODY ID (Pro Player Connect) Anti-E SAFETRACE TX Anti-Fya UNID IgG Antibody Consult SIGNED OUTComment: Anti E SAFETRACE TX causes RBC injury, transfuse E negative RBCs.An IgG antibody of undetermined specificity is detected, transfuse crossmatch compatible RBCs. History of anti Fya.Electronic Signature: Angelina Melendez M.D. Specimen Performing Organization Address [facility] Phone Number SAFETRACE [place] * Transfuse Leuko-Red RBC (12/31/2018 5:50 PM CDT) Only the most recent of 6 results within the time period is included. * Type and screen, automated (12/31/2018 9:41 AM CDT) Only the most recent of 3 results within the time period is included. ABO/RH AUTOMATED (Pro Player Connect) B [facility] Ab Scrn POSITIVE [facility] Specimen Blood Performing Organization Address [facility] Phone Number [address] * Blood Culture - Routine (Left Venipuncture) (12/31/2018 4:13 AM CDT) Only the most recent of 3 results within the time period is included. Result No growth in 5 days [facility] Specimen Blood Performing Organization Address [facility] Phone Number [address] [address] [phone] [address] * US renal complete (12/30/2018 5:59 PM CDT) Specimen Narrative Performed At FINAL REPORT [facility] Renal ultrasound. Clinical History: recurrent UTI's. Comparison Study: CT scan of the chest dated September 05, 2018. Findings: The right kidney measures 11.7 x 4.9 x 5.3 cm and left kidney measures 12.1 x 6.0 x 5.8 cm. There is no evidence of hydronephrosis, nephrolithiasis or renal mass on either side. The echogenicity is mildly increased on the right side. The cortical thickness on the right side is 1.2 cm and on the left side is 1.9 cm. Color flow is documented to both kidneys. The bladder is partially filled with urine. Impression: Mildly echogenic right kidney. Otherwise unremarkable study. Signed: Sam Hall MD Report Verified Date/Time:12/30/2018 19:07:42 Reading Location: [address] Consult Reading Room Procedure Note Interface, External Ris In - 12/30/2018 7:09 PM CDT FINAL REPORT Renal ultrasound. Clinical History: recurrent UTI's. Comparison Study: CT scan of the chest dated September 05, 2018. Findings: The right kidney measures 11.7 x 4.9 x 5.3 cm and left kidney measures 12.1 x 6.0 x 5.8 cm. There is no evidence of hydronephrosis, nephrolithiasis or renal mass on either side. The echogenicity is mildly increased on the right side. The cortical thickness on the right side is 1.2 cm and on the left side is 1.9 cm. Color flow is documented to both kidneys. The bladder is partially filled with urine. Impression: Mildly echogenic right kidney. Otherwise unremarkable study. Signed: Sam Hall MD Report Verified Date/Time: 12/30/2018 19:07:42 Reading Location: [address] Consult Reading Room Performing Organization Address City/State/Zipcode Phone Number GE RIS * Urinalysis w/Microscopic + Reflex to Culture (12/30/2018 12:18 AM CDT) Only the most recent of 4 results within the time period is included. Color, UA Yellow [facility] Clarity, UA Slightly Cloudy [facility] Specific Irene, UA 1.015 1.001 - 1.035 [facility] [place] pH, UA 8.5 (H) 5.0 - 8.0 [facility] [place] Protein, UA Negative Negative [facility] [place] Glucose, UA Negative Negative [facility] Ketones, UA Negative Negative [facility], [facility] Bilirubin, UA Negative Negative [facility], [facility] Blood, UA Negative Negative [facility] Nitrite, UA Negative Negative [facility] Leukocytes, UA Small (A) Negative [facility], [facility] Urobilinogen, UA 1.0 0.2 - 1.0 mg/dL [facility] Bacteria, UA Few [facility] RBC, UA <5 /HPF [facility] WBC, UA 20-50 /HPF [facility] SQUAMOUS EPITHELIAL <5 /HPF [facility] Specimen Source [facility], [facility] Specimen Urine Performing Organization Address City/State/Zipcomi Phone Number [facility] [address] [place] [address] [facility], [facility], [facility], [facility] * Urine culture (12/30/2018 12:18 AM CDT) Only the most recent of 3 results within the time period is included. Result 40-49,000 col/mL Escherichia [facility] coli (A) [facility] Specimen Urine Antibiotic Method Susceptibility Organism Amikacin <=2: Susceptible Escherichia coli Ampicillin + Sulbactam 8: Susceptible Escherichia coli Aztreonam <=1: Susceptible Escherichia coli Cefepime <=1: Susceptible Escherichia coli Cefoxitin <=4: Susceptible Escherichia coli Ceftazidime <=1: Susceptible Escherichia coli Ceftriaxone <=1: Susceptible Escherichia coli Ertapenem <=0.5: Susceptible Escherichia coli Gentamicin >=16: Resistant Escherichia coli Levofloxacin >=8: Resistant Escherichia coli Meropenem <=0.25: Susceptible Escherichia coli Nitrofurantoin <=16: Susceptible Escherichia coli Piperacillin + Tazobactam <=4: Susceptible Escherichia coli Tetracycline >=16: Resistant Escherichia coli Tobramycin 8: Resistant Escherichia coli Trimethoprim + Sulfamethoxazole >=320: Resistant Escherichia coli Performing Organization Address [facility] Phone Number [address] [address] [facility] * Reticulocyte count (12/29/2018 11:15 PM CDT) Only the most recent of 11 results within the time period is included. % Retic 8.5 (H) 0.5 - 1.7 % [facility] Specimen Blood Performing Organization Address [facility] Phone Number [address] [address] [facility] * Screen, urine (12/29/2018 10:39 PM CDT) Only the most recent of 6 results within the time period is included. Preg Test, Ur Negative [facility] Specimen Urine Performing Organization Address [facility] Phone Number [facility] [address] [place], [place] [id number] [facility], [facility], [facility] * XR chest 1 view portable / bedside (12/29/2018 10:12 PM CDT) Only the most recent of 5 results within the time period is included. Specimen Narrative Performed At FINAL REPORT [facility] History: Chest pain, history of sickle cell anemia. Comparison: 12/09/2018 Findings: A single view of the chest is submitted. The cardiomediastinal contours are unremarkable. There is no focal consolidation, pneumothorax, large pleural effusion or evidence of overt pulmonary edema. There is no acute bony abnormality. A right IJ chest port is in place. Impression: No acute abnormality. Signed: Bobby Lutz MD Report Verified Date/Time:12/29/2018 22:13:45 Reading Location: [address] Reading Room Procedure Note Interface, External Ris In - 12/29/2018 10:15 PM CDT FINAL REPORT History: Chest pain, history of sickle cell anemia. Comparison: 12/09/2018 Findings: A single view of the chest is submitted. The cardiomediastinal contours are unremarkable. There is no focal consolidation, pneumothorax, large pleural effusion or evidence of overt pulmonary edema. There is no acute bony abnormality. A right IJ chest port is in place. Impression: No acute abnormality. Signed: Bobby Lutz MD Report Verified Date/Time: 12/29/2018 22:13:45 Reading Location: [address] Reading Room Performing Organization Address City/State/Zipcode Phone Number GE R[facility] * EKG-SCANNED (12/10/2018 11:00 AM CDT) Narrative Performed At * ECG/EKG Interpretation (12/09/2018 1:07 PM CDT) Only the most recent of 3 results within the time period is included. Narrative Performed At Butch Sandoval DO 12/09/20182:40 PM ECG/EKG Interpretation Date/Time: 12/09/2018 1:08 PM Performed by: Butch Sandoval DO Authorized by: Butch Sandoval DO The ECG was interpreted by ED physician. This ECG was not compared with previous ECG(s).The ECG is interpreted as sinus rhythm. Rate is normal rate. Heart rate is 83 BPM. [place] is normal. Clinical Impression: non-specific ECGECG reviewed and does not meet STEMI criteria. Patient tolerance: Patient tolerated the procedure well with no immediate complications * XR chest PA or AP 1 view in dept (12/09/2018 12:46 PM CDT) Specimen Narrative Performed At FINAL REPORT [facility] INDICATION: Chest pain. COMPARISON: September 03, 2018 TECHNIQUE: Chest radiograph one view. FINDINGS / IMPRESSION: Heart shadow and central pulmonary veins are prominent. No overt pulmonary edema or pleural effusion is demonstrated. No pneumothorax or pneumonia demonstrated. Right chest port terminates in the mid SVC. Osseous structures unremarkable. Signed: Yvan Lewis MD Report Verified Date/Time:12/09/2018 13:57:32 Reading Location: [facility] B1 [id number] Consult Reading Room Procedure Note Interface, External Ris In - 12/09/2018 1:59 PM CDT FINAL REPORT INDICATION: Chest pain. COMPARISON: September 03, 2018 TECHNIQUE: Chest radiograph one view. FINDINGS / IMPRESSION: Heart shadow and central pulmonary veins are prominent. No overt pulmonary edema or pleural effusion is demonstrated. No pneumothorax or pneumonia demonstrated. Right chest port terminates in the mid SVC. Osseous structures unremarkable. Signed: Yvan Lewis MD Report Verified Date/Time: 12/09/2018 13:57:32 Reading Location: [facility] [id number] Consult Reading Room Performing Organization Address City/State/Zipcode Phone Number GE [facility] * ECG 12 lead (12/09/2018 12:44 PM CDT) Only the most recent of 5 results within the time period is included. Specimen Narrative Performed At Ventricular Rate 83 BPM GE [facility] Atrial Rate 83 BPM P-R Interval 154 ms QRS Duration 76 ms Q-T Interval 380 ms QTC Calculation(Bazett) 446 ms P [place] 43 degrees R [place] 14 degrees T [place] 5 degrees Normal sinus rhythm Minimal voltage criteria for LVH, may be normal variant Borderline ECG When compared with ECG of 03-SEP-2018 11:50, T wave inversion no longer evident in Anterior leads Confirmed by MD CAM, SREEDHAR Alfaro ([id number]) on 12/10/2018 3:03:05 PM Procedure Note Interface, External Ris In - 12/10/2018 3:03 PM CDT Ventricular Rate 83 BPM Atrial Rate 83 BPM P-R Interval 154 ms QRS Duration 76 ms Q-T Interval 380 ms QTC Calculation(Bazett) 446 ms P [place] 43 degrees R [place] 14 degrees T [place] 5 degrees Normal sinus rhythm Minimal voltage criteria for LVH, may be normal variant Borderline ECG When compared with ECG of 03-SEP-2018 11:50, T wave inversion no longer evident in Anterior leads Confirmed by MD CAM, SREEDHAR Alfaro ([id number]) on 12/10/2018 3:03:05 PM Performing Organization Address City/[facility]/Zipcode Phone Number GE MUSE * Rapid Troponin I ([facility] Only) (12/09/2018 12:38 PM CDT) Rapid Troponin I <0.05 <0.05 ng/mL [facility] Specimen Blood Performing Organization Address [facility] Phone Number [facility] [address] [place] [address] [facility] [place] * PT/aPTT (12/09/2018 12:38 PM CDT) Only the most recent of 3 results within the time period is included. Protime 10.1 9.8 - 12.0 seconds [facility] INR 0.9 <=5.9 [facility] PTT 23.7 (L) 25.8 - 34.5 seconds [facility] Specimen Blood Narrative Performed At RECOMMENDED COUMADIN/WARFARIN INR THERAPY RANGES [facility] STANDARD DOSE: 2.0 - 3.0 Includes: PROPHYLAXIS for venous thrombosis, [facility] MEDICAL systemic embolization; TREATMENT for venous thrombosis and/or pulmonary embolus. [facility] HIGH RISK: Target INR is 2.5-3.5 for patients with mechanical heart valves. [facility] C[facility], [facility] Performing Organization Address [facility] Phone Number [facility] [address] [place] [address] [facility] [place] * Urinalysis w/Microscopic (12/09/2018 12:38 PM CDT) Only the most recent of 2 results within the time period is included. Color, UA Yellow [facility] Clarity, UA Clear [facility] Specific Irene, UA 1.015 1.001 - 1.035 [facility] pH, UA 6.0 5.0 - 8.0 [facility] Protein, UA Negative Negative [facility] Glucose, UA Negative Negative [facility] Ketones, UA Negative Negative [facility] Bilirubin, UA Negative Negative [facility] Blood, UA Negative Negative [facility] Nitrite, UA Negative Negative [facility] Leukocytes, UA Negative Negative [facility] Urobilinogen, UA 1.0 0.2 - 1.0 mg/dL [facility] Bacteria, UA Rare [facility] RBC, UA None Seen /HPF [facility] WBC, UA <5 /HPF [facility] SQUAMOUS EPITHELIAL <5 /HPF [facility] Specimen Source [facility] Specimen Urine Performing Organization Address City/State/Zipcode Phone Number [facility] [address] [place] [address] [facility] * Comprehensive metabolic panel (12/09/2018 12:38 PM CDT) Only the most recent of 3 results within the time period is included. Protein, Total 9.0 (H) 6.0 - 8.5 gm/dL [facility] Albumin 4.4 3.5 - 5.0 g/dL [facility] Alkaline Phosphatase 74 30 - 115 U/L [facility] Total Bilirubin 1.5 (H) 0.1 - 1.2 mg/dL [facility] Sodium 136 135 - 148 meq/L [facility] Potassium 5.2 3.6 - 5.5 meq/L [facility] Chloride 103 98 - 106 meq/L [facility] CO2 28 24 - 32 meq/L [facility] BUN 7 (L) 10 - 26 mg/dL [facility] Creatinine 0.51 0.50 - 1.20 mg/dL [facility] Glucose 121 (H) 70 - 110 mg/dL [facility] Calcium 8.1 (L) 8.5 - 10.5 mg/dL [facility] AST 72 (H) 5 - 40 U/L [facility] ALT 11 5 - 50 U/L [facility] EGFR 166Comment: ESTIMATED GFR IS mL/min/1.73 sq m [facility] NOT ACCURATE CREATININE [facility] MEDICAL CLEARANCE IN PREDICTING [place] GLOMER[facility] FILTRATION RATE. EM[facility]Y CENTER, ESTIMATED GFR IS NOT [facility] APPLICABLE FOR DIALYSIS PATIENTS. Specimen Blood Performing Organization Address City/State/Zipcode Phone Number [facility] [address] [place] [address] [facility]LY [facility], [facility], [facility], [facility] * ECHOCARDIOGRAM REPORT - SCAN (09/06/2018 9:20 PM TEAM PRIMARY CARE PHYSICIAN) Narrative Performed At * 2D Echo W/Doppler(CW/PW/Color) (09/06/2018 2:14 PM TEAM PRIMARY CARE PHYSICIAN) Ejection Fraction [facility]CHO [facility] Specimen Narrative Performed At Transthoracic Echocardiography Report (TTE) [facility] Demographics [facility] Patient NameTAOCTAVIA SAWANT Date of Study09/06/2018 TATIANA Gender Female Visit [id number] Race Unknown [id number] Number Date of 1985 Referring Physician Age 33 year(s) SonographerFahadian Luis M FRAGOSOCS Interpreting [facility] Needs to be Pre Physician Read Sreedhar Vargas MD Procedure Type of Study TTE procedure:2DECHO W DOPPLER(CW/PW/COLOR) (MONIQUE) Indications:Acute Chest Pain/ Suspected CAD. Clinical History Sickle Cell Anemia HGB 8 HCT 24.5 % Height: 64 inches Weight: 96.16 kg (212 lbs) BSA: 2.01 m^2 BMI: 36.39 kg/m^2 HR: 76 bpm BP: 99/52 mmHg Summary The left ventricle is chamber size (by PSLAX dimension) is normal (female - LVIDd 3.8-5.2cm) . Mild concentric LV hypertrophy. All of the LV segments contract normally . Estimated LVEF by qualitative assessment is normal (>60%) . Normal diastolic function. Unable to estimate peak systolic PA pressure; inadequate TR velocity signal. No pericardial effusion is visualized. Signature Findings Left Ventricle The left ventricle is chamber size (by PSLAX dimension) is normal (female - LVIDd 3.8-5.2cm) . Mild concentric LV hypertrophy. All of the LV segments contract normally . Estimated LVEF by qualitative assessment is normal (>60%) . Normal diastolic function. Left AtriumLA size is normal (16-34 ml/m2) . Right VentricleThe right ventricular chamber size and systolic function are within normal limits. Right Atrium RA size is normal. Aortic Valve Normal AoV structure. Mitral Valve Normal MV structure. Tricuspid ValveTV structure is normal. Unable to estimate peak systolic PA pressure; inadequate TR velocity signal. Pulmonic Valve Normal PV structure and function by limited views and Doppler. AortaAortic root size (SInus of Valsalva diameter) is normal . PericardiumNo pericardial effusion is visualized. IVC/SVC/PA/PV/PleuralThe estimated RA pressure by IVC dynamics 0-5mmHg . Chambers/Structures Left Atrium LA Dimension: 3.54 cm LA Area: 19.4 cm^2 LA Volume: 60.08 ml LA Vol. Index: 30 ml/m^2 Left Ventricle LVIDd: 4.85 cm LVIDs: 2.94 cm LV Septum Diastolic: 1.21 cm LV PW Diastolic: 1.39 cm LV FS: 39.4 % LVOT Diameter: 2.11 cm Aorta Ao Root S of Makeda.: 2.94 cm Doppler/Quantitative Measurements LVOT Peak Velocity: 1.19 m/s Peak Gradient: 5.7 mmHg Mean Velocity: 0.73 m/s Mean Gradient: 2.58 mmHg LVOT Diameter: 2.11 cmLVOT VTI: 21.19 cm LVOT Area: 3.5 cm^2 LVOT SV:74.06 ml LVOT CO: 5.63 l/min LVOT CI: 2.8 l/min/m^2 Procedure Note Interface, External Ris In - 09/06/2018 4:25 PM TEAM PRIMARY CARE PHYSICIAN Transthoracic Echocardiography Report (TTE) Demographics Patient Name OCTAVIA AWAD Date of Study 09/06/2018 TATIANA Gender Female Visit Number [id number] Race Unknown Room Number 2027 Number Date of 1985 Referring Physician Age 33 year(s) Network Control Technician Martín Asencio [facility] Interpreting [facility] Needs to be Pre Physician Read Sreedhar Vargas MD Procedure Type of Study TTE procedure:2DECHO W DOPPLER(CW/PW/COLOR) (MONIQUE) Indications:Acute Chest Pain/ Suspected CAD. Clinical History Sickle Cell Anemia HGB 8 HCT 24.5 % Height: 64 inches Weight: 96.16 kg (212 lbs) BSA: 2.01 m^2 BMI: 36.39 kg/m^2 HR: 76 bpm BP: 99/52 mmHg Summary The left ventricle is chamber size (by PSLAX dimension) is normal (female - LVIDd 3.8-5.2cm) . Mild concentric LV hypertrophy. All of the LV segments contract normally . Estimated LVEF by qualitative assessment is normal (>60%) . Normal diastolic function. Unable to estimate peak systolic PA pressure; inadequate TR velocity signal. No pericardial effusion is visualized. Signature Findings Left Ventricle The left ventricle is chamber size (by PSLAX dimension) is normal (female - LVIDd 3.8-5.2cm) . Mild concentric LV hypertrophy. All of the LV segments contract normally . Estimated LVEF by qualitative assessment is normal (>60%) . Normal diastolic function. Left Atrium LA size is normal (16-34 ml/m2) . Right Ventricle The right ventricular chamber size and systolic function are within normal limits. Right Atrium RA size is normal. Aortic Valve Normal AoV structure. Mitral Valve Normal MV structure. Tricuspid Valve TV structure is normal. Unable to estimate peak systolic PA pressure; inadequate TR velocity signal. Pulmonic Valve Normal PV structure and function by limited views and Doppler. Aorta Aortic root size (SInus of Valsalva diameter) is normal . Pericardium No pericardial effusion is visualized. IVC/SVC/PA/PV/Pleural The estimated RA pressure by IVC dynamics 0-5mmHg . Chambers/Structures Left Atrium LA Dimension: 3.54 cm LA Area: 19.4 cm^2 LA Volume: 60.08 ml LA Vol. Index: 30 ml/m^2 Left Ventricle LVIDd: 4.85 cm LVIDs: 2.94 cm LV Septum Diastolic: 1.21 cm LV PW Diastolic: 1.39 cm LV FS: 39.4 % LVOT Diameter: 2.11 cm Aorta Ao Root S of Makeda.: 2.94 cm Doppler/Quantitative Measurements LVOT Peak Velocity: 1.19 m/s Peak Gradient: 5.7 mmHg Mean Velocity: 0.73 m/s Mean Gradient: 2.58 mmHg LVOT Diameter: 2.11 cm LVOT VTI: 21.19 cm LVOT Area: 3.5 cm^2 LVOT SV:74.06 ml LVOT CO: 5.63 l/min LVOT CI: 2.8 l/min/m^2 Performing Organization Address City/State/Zipcode Phone Number [facility] * Manual Differential (09/06/2018 4:07 AM TEAM PRIMARY CARE PHYSICIAN) % Neutros 39 % [facility] % Lymphs 45 % [facility] % Monos 4 % [facility] % Eos 4 % [facility] % Baso 1 % [facility] % Atypical Lymphs 7 (H) 0 - 0 % [facility] # Neutros 4.33 1.56 - 6.13 K/ul [facility] # Lymphs 5.00 (H) 1.18 - 3.74 K/ul [facility] # Monos 0.44 (H) 0.24 - 0.36 K/uL [facility] # Eos 0.44 (H) 0.04 - 0.36 K/uL [facility] # Baso 0.11 (H) 0.01 - 0.08 K/uL [facility] # Atypical Lymphs 0.78 (H) 0.00 - 0.00 K/uL [facility] Total Counted 100 [facility] nRBC (manual) 1 (H) 0 - 0 /100 WBC [facility] Smudge Cells Present [facility] Giant Platelet Present [facility] Polychromasia 1+ few [facility] Hypochromia 1+ few [facility] [facility] Anisocytosis 1+ few [facility] Poikilocytes 2+ moderate [facility] Schistocytes 1+ few [facility] Platelet Conc Increased [facility] Specimen Blood Narrative Performed At Received comment: [facility] User comments: [facility] Slide comments: Performing Organization Address City/State/Zipcode Phone Number [facility] [address] [place] [address] MEDICAL [facility] * CT chest for pulmonary embolus (09/05/2018 5:18 PM TEAM PRIMARY CARE PHYSICIAN) Specimen Narrative Performed At FINAL REPORT [employer] Chest CT with contrast, PE protocol INDICATION: Chest pain, acute, pulmonary origin COMPARISON: 03/05/2018 TECHNIQUE: CT examination of the chest was performed after the administration of intravenous contrast per pulmonary embolism protocol. Coronal multiplanar reformation of the pulmonary arteries were performed. This exam was performed according to our departmental dose optimization program which includes automated exposure control, adjustment of the mA and/or kV according to patient size and/or use of iterative reconstructive technique. FINDINGS: The contrast bolus was adequate. There is no abnormal filling defect in the pulmonary trunk or pulmonary arteries to suggest pulmonary embolism. There is no pneumothorax, pulmonary edema or pleural effusion. There is mild scattered atelectasis and scarring bilaterally without focal consolidation. Small bilateral pulmonary nodules are seen measuring up to 4 mm in the right upper lobe, image 20. The visualized portion of the thyroid gland appear unremarkable. There is no hilar, mediastinal or axillary lymphadenopathy. There is no pericardial effusion. Limited visualization of the upper abdominal structures demonstrate multiple gallstones. The osseous structures demonstrate mild degenerative change. 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 IMPRESSION: 1. No evidence of pulmonary embolism. 2. Scattered atelectasis without focal consolidation. 3. Cholelithiasis. 4. Small pulmonary nodules measuring up to 4 mm in the right upper lobe. 2017 Fleischner Society Recommendations for Multiple Solid Lung Nodules Follow-Up base on size (average of long- and short-axis diameters). Use most suspicious nodule for followup. Nodule Size <6 mm Low-Risk Patient: No routine follow-up Nodule Size <6 mm High-Risk Patient: Optional CT at 12 months Nodule Size6-8 mm Low-Risk Patient: CT at 3-[address] at 18-24 months Nodule Size6-8 mm High-Risk Patient: CT at 3-6 months then at 18-24 months Nodule Size (mm) >8 Low-Risk Patient: CT at 3-6 months, then consider CT at 18-24 months Nodule Size (mm) >8 High-Risk Patient: CT at 3-6 months, then at 18-24 months Signed: Lamonte Frazier MD Report Verified Date/Time:09/05/2018 17:33:47 Reading Location: [facility] [address] [place] [address] Consult Reading Room Procedure Note Interface, External Ris In - 09/05/2018 5:36 PM TEAM PRIMARY CARE PHYSICIAN FINAL REPORT Chest CT with contrast, PE protocol INDICATION: Chest pain, acute, pulmonary origin COMPARISON: 03/05/2018 TECHNIQUE: CT examination of the chest was performed after the administration of intravenous contrast per pulmonary embolism protocol. Coronal multiplanar reformation of the pulmonary arteries were performed. This exam was performed according to our departmental dose optimization program which includes automated exposure control, adjustment of the mA and/or kV according to patient size and/or use of iterative reconstructive technique. FINDINGS: The contrast bolus was adequate. There is no abnormal filling defect in the pulmonary trunk or pulmonary arteries to suggest pulmonary embolism. There is no pneumothorax, pulmonary edema or pleural effusion. There is mild scattered atelectasis and scarring bilaterally without focal consolidation. Small bilateral pulmonary nodules are seen measuring up to 4 mm in the right upper lobe, image 20. The visualized portion of the thyroid gland appear unremarkable. There is no hilar, mediastinal or axillary lymphadenopathy. There is no pericardial effusion. Limited visualization of the upper abdominal structures demonstrate multiple gallstones. The osseous structures demonstrate mild degenerative change. 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 IMPRESSION: 1. No evidence of pulmonary embolism. 2. Scattered atelectasis without focal consolidation. 3. Cholelithiasis. 4. Small pulmonary nodules measuring up to 4 mm in the right upper lobe. 2017 Fleischner Society Recommendations for Multiple Solid Lung Nodules Follow-Up base on size (average of long- and short-axis diameters). Use most suspicious nodule for followup. Nodule Size <6 mm Low-Risk Patient: No routine follow-up Nodule Size <6 mm High-Risk Patient: Optional CT at 12 months Nodule Size 6-8 mm Low-Risk Patient: CT at 3-[address] at 18-24 months Nodule Size 6-8 mm High-Risk Patient: CT at 3-6 months then at 18-24 months Nodule Size (mm) >8 Low-Risk Patient: CT at 3-6 months, then consider CT at 18-24 months Nodule Size (mm) >8 High-Risk Patient: CT at 3-6 months, then at 18-24 months Signed: Lamonte Frazier MD Report Verified Date/Time: 09/05/2018 17:33:47 Reading Location: [facility] B1 [id number] [facility] Consult Reading Room Performing Organization Address City/State/Zipcode Phone Number [employer] [facility] * D-dimer (09/04/2018 6:15 PM TEAM PRIMARY CARE PHYSICIAN) D-Dimer, Quant 1.26 (H) <0.50 MG/L FEU [facility] Specimen Blood Narrative Performed At Intended Use: The D-Dimer Assay can be used to aid in the diagnosis of Deep Vein [facility] Thrombosis (DVT) and Pulmonary Embolism Disease (PED). [facility] In patients with low pre-test probability, various studies concerning STA Liatest D-dimer test have reported that with a cutoff value of 0.50 MG/L FEU, the Negative Predictive Value (NPV) regarding the exclusion of thrombosis is within 95-100% range. Performing Organization Address City/State/Zipcode Phone Number [facility] [address] [place] [address] [facility] * XR hip 2 views left (08/29/2018 12:26 PM TEAM PRIMARY CARE PHYSICIAN) Specimen Narrative Performed At FINAL REPORT [facility] Left hip, two views History: Hip pain Comparison: None Findings: The examination is significantly limited by patient body habitus and underpenetration. No definite acute fracture, dislocation, or subluxation is seen. No additional bone or joint space abnormalities are identified. Impression: Significantly limited study, without acute findings. If there is clinical concern for an occult fracture, recommend further evaluation with cross-sectional imaging. Signed: Hair Lei MD Report Verified Date/Time:08/29/2018 13:09:53 Reading Location: [address] Ortho Consult Reading Room Procedure Note Interface, External Ris In - 08/29/2018 1:12 PM TEAM PRIMARY CARE PHYSICIAN FINAL REPORT Left hip, two views History: Hip pain Comparison: None Findings: The examination is significantly limited by patient body habitus and underpenetration. No definite acute fracture, dislocation, or subluxation is seen. No additional bone or joint space abnormalities are identified. Impression: Significantly limited study, without acute findings. If there is clinical concern for an occult fracture, recommend further evaluation with cross-sectional imaging. Signed: Hair Lei MD Report Verified Date/Time: 08/29/2018 13:09:53 Reading Location: [facility] [id number] Ortho Consult Reading Room Performing Organization Address [facility] Phone Number [facility] * XR hip 2 views right (08/29/2018 12:21 PM TEAM PRIMARY CARE PHYSICIAN) Specimen Narrative Performed At FINAL REPORT [facility] COMPARISON: None TECHNIQUE: 2 views ofthe right hip. FINDINGS: There are no acute fractures or dislocations.No radiopaque foreign bodies. Joint spaces are maintained. No lytic or blastic lesions.. IMPRESSION: No acute bony abnormality. Signed: Rodolfo Walter MD Report Verified Date/Time:08/29/2018 14:50:25 Reading Location: [address] Transitional Reading Room Procedure Note Interface, External Ris In - 08/29/2018 2:52 PM TEAM PRIMARY CARE PHYSICIAN FINAL REPORT COMPARISON: None TECHNIQUE: 2 views of the right hip. FINDINGS: There are no acute fractures or dislocations. No radiopaque foreign bodies. Joint spaces are maintained. No lytic or blastic lesions.. IMPRESSION: No acute bony abnormality. Signed: Rodolfo Walter MD Report Verified Date/Time: 08/29/2018 14:50:25 Reading Location: [address] Transitional Reading Room Performing Organization Address [facility] Phone Number [facility] * Hepatic function panel (08/27/2018 4:58 AM TEAM PRIMARY CARE PHYSICIAN) Only the most recent of 3 results within the time period is included. Protein, Total 6.6Comment: Specimen slightly 6.0 - 8.3 gm/dL [facility] hemolyzed [facility] Albumin 3.2 (L)Comment: Specimen 3.5 - 5.0 g/dL [facility] slightly hemolyzed [facility] Total Bilirubin 2.7 (H)Comment: Specimen 0.2 - 1.2 mg/dL [facility] slightly hemolyzed [facility] Bilirubin, Direct 1.1 (H)Comment: Specimen 0.1 - 0.5 mg/dL [facility] slightly hemolyzed [facility] Alkaline Phosphatase 61 40 - 150 U/L [facility] AST 32Comment: Specimen slightly 5 - 34 U/L [facility] ALT 20Comment: Specimen slightly 6 - 55 U/L [facility] Specimen Blood Narrative Performed At Specimen slightly icteric [facility] Performing Organization Address City/State/Zipcode Phone Number [facility] [address] [place] [address] MEDICAL CENTER * Rapid drug screen, urine (08/06/2018 10:41 PM TEAM PRIMARY CARE PHYSICIAN) Methamphetamine Screen Negative Negative [facility] Barbiturate Screen Negative Negative [facility] Benzodiazepine Screen Positive (A) Negative [facility], [facility] Cocaine (Metab.) Screen Negative Negative [facility], [facility] Methadone Screen Negative Negative [facility], [facility] Opiate Screen Positive (A) Negative [facility], [facility] Cannabinoid Screen Negative Negative [facility], [facility] Tricyclic Screen Negative Negative [facility] Amphetamine Screen Negative Negative [facility], [facility] Phencyclidine Screen Negative Negative [facility], [facility], [facility] Specimen Urine Narrative Performed At [facility] Methamphetamine 1000 ng/mL [facility] [id number] ng/mL [facility] Cannabinoid 50 ng/mL [facility] [place], Benzodiazepine 300 ng/mL [facility] Tricyclic 1000 ng/mL [id number] ng/mL Phencyclidine 25 ng/mL Amphetamine 1000 ng/mL Opiate 300 ng/mL [id number] ng/mL This assay provides an unconfirmed qualitative test result for the clinical management of patients in emergency situations. Chain of custody not maintained. Some fwri-ugo-jwyesrz medications, as well as adulterants, may cause inaccurate results. Clinical correlation should be applied. A more comprehensive drug screen or confirmation of a detected drug may be performed upon request. Performing Organization Address City/State/Zipcode Phone Number [facility] [address] [place] [address] [facility], [facility] * CBC (Hemogram only) (07/17/2018 5:00 AM TEAM PRIMARY CARE PHYSICIAN) Only the most recent of 12 results within the time period is included. WBC 7.4 3.5 - 10.5 K/L [facility] RBC 3.23 (L) 3.93 - 5.22 M/L [facility] Hemoglobin 9.1 (L) 11.2 - 15.7 GM/DL [facility] Hematocrit 28.2 (L) 34.1 - 44.9 % [facility] MCV 87.3 79.4 - 94.8 fL [facility] MCH 28.2 25.6 - 32.2 pg [facility] MCHC 32.3 32.2 - 35.5 GM/DL [facility] RDW 17.0 (H) 11.7 - 14.4 % [facility] Platelets 277 150 - 450 K/CU MM [facility] MPV 10.2 9.4 - 12.3 fL [facility] nRBC 0 0 - 0 /100 WBC [facility] Specimen Blood Performing Organization Address City/State/Zipcode Phone Number [facility] [address] [place] [address] MEDICAL CENTER * Troponin I (07/13/2018 11:58 AM TEAM PRIMARY CARE PHYSICIAN) Only the most recent of 2 results within the time period is included. Troponin I <0.01 0.00 - 0.03 ng/mL [facility] Specimen Blood Narrative Performed At Troponin I (TnI) levels must be interpreted in the context of the presenting [facility] symptoms and the clinical findings. Elevated TnI levels indicate myocardial [facility] damage, but are not specific for ischemic heart disease. Elevated TnI levels are seen in patients with other cardiac conditions (including myocarditis and congestive heart failure), and slight TnI elevations occur in patients with other conditions, including sepsis, renal failure, acidosis, acute neurological disease, and persistent tachyarrhythmia. Performing Organization Address City/State/Zipcode Phone Number [facility] [address] [place] [address] [facility] * XR chest 2 views (07/12/2018 6:27 PM TEAM PRIMARY CARE PHYSICIAN) Only the most recent of 2 results within the time period is included. Specimen Narrative Performed At FINAL REPORT [facility] Comparison: 06/26/2018 History: Sickle cell pain crisis Findings: Lungs clear. No pleural effusions or pneumothorax. The heart shadow and pulmonary vascularity are normal in appearance. The thoracic aorta appears normal in caliber. Right central venous port catheter is in the SVC region. Sclerosis in the bilateral humeral heads suggestive of underlying avascular necrosis. Impression:No evidence of acute cardiopulmonary disease. Signed: Zoraida Kim MD Report Verified Date/Time:07/12/2018 18:34:39 Reading Location: [facility] C013 Transitional Reading Room Procedure Note Interface, External Ris In - 07/12/2018 6:36 PM TEAM PRIMARY CARE PHYSICIAN FINAL REPORT Comparison: 06/26/2018 History: Sickle cell pain crisis Findings: Lungs clear. No pleural effusions or pneumothorax. The heart shadow and pulmonary vascularity are normal in appearance. The thoracic aorta appears normal in caliber. Right central venous port catheter is in the SVC region. Sclerosis in the bilateral humeral heads suggestive of underlying avascular necrosis. Impression: No evidence of acute cardiopulmonary disease. Signed: Zoraida Kim MD Report Verified Date/Time: 07/12/2018 18:34:39 Reading Location: [facility] Transitional Reading Room Performing Organization Address City/[facility]/Zipcode Phone Number [facility] * Lipase (07/01/2018 12:37 PM TEAM PRIMARY CARE PHYSICIAN) Lipase <4 (L) 8 - 78 U/L [facility] Specimen Blood Narrative Performed At Add on [facility] Add on [facility] Performing Organization Address City/[facility] Cent[facility] Phone Number [address] [phone] [place] [address] * Sputum Culture + Gram Stain (03/08/2018 5:26 PM CDT) Result <1+ Same organism has been [facility] isolated from cultures(s) of [facility] the same body site within 3 days. Repeat identification and susceptibility testing performed only after consultation with the clinical microbiology laboratory. (A) Comment: Refer to previous culture of Methicillin resistant Staphylococcus aureus Gram Stain Result 3+ WBCs [facility] Gram Stain Result 10-15 epithelial cells [facility] Gram Stain Result 4+ gram negative rods [facility] Gram Stain Result 1+ gram positive rods [facility] Gram Stain Result 1+ gram positive cocci in [facility] Specimen Sputum - Expectorated Narrative Performed At 4+ Normal respiratory jazlyn present [facility] Performing Organization Address [facility] Centercode Phone Number [address] [address] [phone] [place] [address] * Prepare RBC (03/07/2018 11:54 PM CDT) Unit ABO B Neg [facility] [place] UNIT NUMBER [id number] [facility] [place] Status TRANSFUSED [facility] [place] Blood [facility] Product RED BLOOD CELLS [facility] [place] PRODUCT CODE [id number] [facility] [place] Unit ABO B Neg [facility] [place] UNIT NUMBER [id number] [facility] [place] Status TRANSFUSED [facility] [place] Blood Bank Product RED BLOOD CELLS [facility] [place] PRODUCT CODE [id number] [facility] [place] CROSSMATCH COMPATIBLE [facility] [place] CROSSMATCH COMPATIBLE S[facility] [place] Specimen Performing Organization Address City/[facility] Centercomi Phone Number [facility] [place] * Strep pneumoniae antigen urine (03/06/2018 5:55 PM CDT) Strep pneumoniae Antigen Presumptive negative for Presumptive negative for [facility] pneumococcal pneumonia - see pneumococcal pneumonia - [facility] comment see comment, Presumptive negative for pneumococcal meningitis - see comment Specimen Urine Narrative Performed At Presumptive negative for pneumococcal pneumonia, suggesting no current or recent [facility] pneumococcal infection. Infection due to S. pneumoniae cannot be ruled out since [facility] the antigen present in the sample may be below the detection limit of the test. Performing Organization Address [facility] Phone Number [address] * Legionella antigen, urine (03/06/2018 5:55 PM CDT) Legionella Urine Antigen Negative - see commentComment: [facility] Negative for L. pneumophila [facility] serogroup 1 antigen, suggesting no recent or current infection with this serogroup. Legionellosis cannot be ruled out since other serogroups and species may cause disease. Specimen Urine Performing Organization Address [facility] Phone Number [address] * MRSA screen (03/06/2018 5:50 PM CDT) Result <1+ Methicillin resistant [facility] Staphylococcus aureus (A) [facility] Specimen Nasal Antibiotic Method Susceptibility Organism Clindamycin 0.25: Susceptible Methicillin resistant Staphylococcus aureus Erythromycin >=8: Resistant Methicillin resistant Staphylococcus aureus Linezolid 2: Susceptible Methicillin resistant Staphylococcus aureus Oxacillin >=4: Resistant Methicillin resistant Staphylococcus aureus Rifampin <=0.5: Susceptible Methicillin resistant Staphylococcus aureus Tetracycline <=1: Susceptible Methicillin resistant Staphylococcus aureus Trimethoprim + Sulfamethoxazole <=10: Susceptible Methicillin resistant Staphylococcus aureus Vancomycin 1: Susceptible Methicillin resistant Staphylococcus aureus Performing Organization Address [facility] Centercode Phone Number [place] [phone] * Iron, TIBC, % sat. (without ferritin) (03/06/2018 5:42 AM CDT) Iron 30 (L) 40 - 160 ug/dL [facility] TIBC 176 (L) 250 - 450 ug/dL [facility] Iron % Saturation 17 (L) 20 - 55 % [facility] Specimen Blood Performing Organization Address City/[facility]/Zipcode Phone Number [facility] [address] [place] [id number] [facility] * Ferritin (03/06/2018 5:42 AM CDT) Ferritin 849 (H) 5 - 275 ng/mL [facility] Specimen Blood Performing Organization Address [facility]i Phone Number [address] [address] [facility] * CT chest without contrast (03/05/2018 6:26 AM CDT) Specimen Narrative Performed At FINAL REPORT [facility] [employer] Chest CT without contrast CLINICAL HISTORY: Sickle cell pain crisis. Chest pain. TECHNIQUE: Contiguous axial images of the chest without contrast. This exam was performed according to the departmental dose optimization program which includes automated exposure control, adjustment of the mA and/or kV according to the patient size, and/or use of an iterative reconstruction technique. COMPARISON: None FINDINGS: Limited examination secondary to expiratory phase andmotion artifact. Minimal right lateral lower lobe dependent atelectasis. Mild peribronchial vascular groundglass opacities within the right upper and middle lobe. Multiple nodular densities within the right lower lobe. No suspicious pulmonary nodules. There are no pleural effusions. The heart is globally enlarged. No pericardial effusion. The great vessels are normal in size. Grossly unchanged left anterior pericardial/diaphragmatic space nodular tissue measuring 2.4 x 0.7 cm. Otherwise there is no evidence of axillary, mediastinal, or hilar lymphadenopathy. Soft tissues are unremarkable. Somewhat heterogeneous thyroid gland with no discrete nodules meeting size criteria for additional evaluation. Right chest wall Port-A-Cath with tip terminating in the cavoatrial junction. No aggressive osseous lesions or acute fractures. Visualized abdomen: Partially evaluated splenomegaly . Cholelithiasis. IMPRESSION: Groundglass nodular opacities within the right upper, middle and lower lobes may represent atypical infection or sequela of acute chest syndrome. Mild cardiomegaly. Mild splenomegaly. Cholelithiasis. Signed: Alondra Yan MD Report Verified Date/Time:03/05/2018 06:46:33 Reading Location: [facility] C013T Transitional Reading Room Procedure Note Interface, External Ris In - 03/05/2018 6:48 AM CDT FINAL REPORT Chest CT without contrast CLINICAL HISTORY: Sickle cell pain crisis. Chest pain. TECHNIQUE: Contiguous axial images of the chest without contrast. This exam was performed according to the departmental dose optimization program which includes automated exposure control, adjustment of the mA and/or kV according to the patient size, and/or use of an iterative reconstruction technique. COMPARISON: None FINDINGS: Limited examination secondary to expiratory phase and motion artifact. Minimal right lateral lower lobe dependent atelectasis. Mild peribronchial vascular groundglass opacities within the right upper and middle lobe. Multiple nodular densities within the right lower lobe. No suspicious pulmonary nodules. There are no pleural effusions. The heart is globally enlarged. No pericardial effusion. The great vessels are normal in size. Grossly unchanged left anterior pericardial/diaphragmatic space nodular tissue measuring 2.4 x 0.7 cm. Otherwise there is no evidence of axillary, mediastinal, or hilar lymphadenopathy. Soft tissues are unremarkable. Somewhat heterogeneous thyroid gland with no discrete nodules meeting size criteria for additional evaluation. Right chest wall Port-A-Cath with tip terminating in the cavoatrial junction. No aggressive osseous lesions or acute fractures. Visualized abdomen: Partially evaluated splenomegaly . Cholelithiasis. IMPRESSION: Groundglass nodular opacities within the right upper, middle and lower lobes may represent atypical infection or sequela of acute chest syndrome. Mild cardiomegaly. Mild splenomegaly. Cholelithiasis. Signed: Alondra Yan MD Report Verified Date/Time: 03/05/2018 06:46:33 Reading Location: [facility] B1 [id number] Transitional Reading Room Performing Organization Address City/State/Zipcode Phone Number RIS * POC-Lactic Acid, Venous (03/05/2018 3:53 AM CDT) POC-Lactic Acid, Venous 1.2Comment: TESTED AT [facility] 0.9 - 1.7 mmol/L [address] Specimen Blood Performing Organization Address City/State/Zipcode Phone Number [address] [address] [phone] [place] [address] * B-type Natriuretic Factor (BNP) (03/05/2018 2:54 AM CDT) BNP 173 (H) 0 - 100 pg/mL [facility] Specimen Blood Performing Organization Address City/[facility] Phone Number [address] * Creatine Kinase (CK), Total and MB (not available at [facility] and [place]) (03/05/2018 2:54 AM CDT) Total CK 38 29 - 200 U/L [facility] CK-MB 0.2 0.0 - 6.6 ng/mL [facility] MB Relative Index 0.5 % [facility] Specimen Blood Narrative Performed At CK-MB Reference Range: [facility] <6.7Normal [facility] 6.7-10.0Borderline >10.0 Abnormal Performing Organization Address City/[facility] Cent[facility] Phone Number [address] * C-Reactive Protein (02/19/2018 3:55 PM CDT) CRP 1.28 (H) 0.00 - 0.50 mg/dL [facility] Specimen Blood Performing Organization Address City/State/Zipcode Phone Number [address] [address] [phone] after 01/23/2018 Insurance Payer Benefit Subscriber ID Type Phone Address Plan / Group MEDICAID - MEDICAID MGD MEDICAID xxxxxxxxx Medicaid [employer] Non-Contra cted (Home) [place] [address] Advance Directives For more information, please contact: [facility] [address] [place] [address] Date Inactivated Comments Code Status Date Activated 09/07/2018 10:23 PM Full Code 08/27/2018 4:31 AM This code status was determined by: Patient 07/12/2018 3:02 PM Full Code 06/26/2018 9:31 AM This code status was determined by: Patient 03/09/2018 5:48 PM Full Code 03/05/2018 9:37 AM This code status was determined by: Patient 01/05/2018 7:21 PM Full Code 01/01/2018 12:42 AM This code status was determined by: Patient 09/07/2017 9:01 PM Full Code 09/04/2017 12:18 PM This code status was determined by: Patient
--- OUTSIDE RECORDS SUMMARY | 2019-01-24 20:05 | XMS REPORT ---
Author Author [facility] Address Unknown Phone Unavailable Care Team Providers Care Fowl Blood Tester Name Role Phone FELY ARGUELLES Unavailable Unavailable RA SANDOVAL Unavailable Unavailable SHADIA, WILL Unavailable Unavailable JAZIEL SANDOVAL Unavailable Unavailable Pb HERNANDEZ Unavailable Unavailable DORCAS SONI Unavailable Unavailable Shira LONG Unavailable Unavailable ROSCOE KEENAN Unavailable Unavailable ARAM GRAMAJO Unavailable Unavailable LEISA CONNER Unavailable Unavailable MADISON JAVIER Unavailable Unavailable MADISON CAREY Unavailable Unavailable HERBERTH NEW Unavailable Unavailable Payers Payer Name Policy Type Policy Number Effective Date Expiration Date Problems This patient has no known problems. Allergies, Adverse Reactions, Alerts Allergy Name Allergy Type Status Severity Reaction(s) Onset Date Inactive Date Treating Clinician Comments No Known Allergies DA Active U 2018-03-25 00:00:00 No Known Allergies DA Active U 2017-12-30 00:00:00 Medications This patient has no known medications. Results Test Description Test Time Test Comments Text Results Atomic Results Result Comments BLOOD CULTURE 2019-01-05 08:00:00 CULTURE (BEAKER) (test uaal=6466) No growth in 5 days [id number] 06:48:00* Test Item Value Reference Range Comments MAGNESIUM (BEAKER) (test tzhg=446) 1.7 mg/dL 1.6-2.6 Specimen slightly hemolyzed BASIC METABOLIC [id number] 06:48:00* Test Item Value Reference Range Comments SODIUM (BEAKER) (test wske=833) 136 meq/L 136-145 POTASSIUM (BEAKER) (test jqfl=500) 3.9 meq/L 3.5-5.1 Specimen slightly hemolyzed CHLORIDE (BEAKER) (test ysgm=881) 108 meq/L 98-107 CO2 (BEAKER) (test ymrh=545) 22 meq/L 22-29 BLOOD UREA NITROGEN (BEAKER) (test dsrb=804) 7 mg/dL 7-21 CREATININE (BEAKER) (test gfhi=487) 0.69 mg/dL 0.57-1.25 Specimen slightly hemolyzed GLUCOSE RANDOM (BEAKER) (test oafa=701) 98 mg/dL 70-105 CALCIUM (BEAKER) (test ptiq=021) 8.2 mg/dL 8.4-10.2 EGFR (BEAKER) (test cvro=9104) 117 mL/min/1.73 sq m ESTIMATED GFR IS NOT ACCURATE CREATININE CLEARANCE IN PREDICTING GLOMERULAR FILTRATION RATE. ESTIMATED GFR IS NOT APPLICABLE FOR DIALYSIS PATIENTS. CBC W/PLT COUNT & AUTO [id number] 06:14:00* Test Item Value Reference Range Comments WHITE BLOOD CELL COUNT (BEAKER) (test ejwk=721) 7.6 K/ L 3.5-10.5 RED BLOOD CELL COUNT (BEAKER) (test rqfm=693) 3.06 M/ L 3.93-5.22 HEMOGLOBIN (BEAKER) (test gfho=656) 8.5 GM/DL 11.2-15.7 HEMATOCRIT (BEAKER) (test dyal=413) 26.4 % 34.1-44.9 MEAN CORPUSCULAR VOLUME (BEAKER) (test ybht=122) 86.3 fL 79.4-94.8 MEAN CORPUSCULAR HEMOGLOBIN (BEAKER) (test wnrn=880) 27.8 pg 25.6-32.2 MEAN CORPUSCULAR HEMOGLOBIN CONC (BEAKER) (test swts=156) 32.2 GM/DL 32.2-35.5 RED CELL DISTRIBUTION WIDTH (BEAKER) (test gccb=411) 17.6 % 11.7-14.4 PLATELET COUNT (BEAKER) (test fbdl=839) 276 K/CU MM 150-450 MEAN PLATELET VOLUME (BEAKER) (test cvpu=677) 10.4 fL 9.4-12.3 NUCLEATED RED BLOOD CELLS (BEAKER) (test zasd=028) 0 /100 WBC 0-0 NEUTROPHILS RELATIVE PERCENT (BEAKER) (test xlvs=999) 54 % LYMPHOCYTES RELATIVE PERCENT (BEAKER) (test spga=894) 31 % MONOCYTES RELATIVE PERCENT (BEAKER) (test wcyy=966) 8 % EOSINOPHILS RELATIVE PERCENT (BEAKER) (test hxik=859) 5 % BASOPHILS RELATIVE PERCENT (BEAKER) (test ssnh=393) 1 % NEUTROPHILS ABSOLUTE COUNT (BEAKER) (test dauh=264) 4.15 K/ L 1.56-6.13 LYMPHOCYTES ABSOLUTE COUNT (BEAKER) (test ixam=528) 2.35 K/ L 1.18-3.74 MONOCYTES ABSOLUTE COUNT (BEAKER) (test xhyy=457) 0.63 K/ L 0.24-0.36 EOSINOPHILS ABSOLUTE COUNT (BEAKER) (test qfen=238) 0.35 K/ L 0.04-0.36 BASOPHILS ABSOLUTE COUNT (BEAKER) (test lthl=594) 0.09 K/ L 0.01-0.08 IMMATURE GRANULOCYTES-RELATIVE PERCENT (BEAKER) (test muae=9163) 1 % 0-1 [id number] 07:15:00* Test Item Value Reference Range Comments MAGNESIUM (BEAKER) (test mxtv=186) 1.9 mg/dL 1.6-2.6 Specimen slightly hemolyzed BASIC METABOLIC [id number] 07:15:00* Test Item Value Reference Range Comments SODIUM (BEAKER) (test xthd=656) 135 meq/L 136-145 POTASSIUM (BEAKER) (test gvko=824) 4.2 meq/L 3.5-5.1 Specimen slightly hemolyzed CHLORIDE (BEAKER) (test mqpr=307) 107 meq/L 98-107 CO2 (BEAKER) (test talb=523) 22 meq/L 22-29 BLOOD UREA NITROGEN (BEAKER) (test eccl=711) 6 mg/dL 7-21 CREATININE (BEAKER) (test jlpy=948) 0.66 mg/dL 0.57-1.25 Specimen slightly hemolyzed GLUCOSE RANDOM (BEAKER) (test mgby=764) 84 mg/dL 70-105 CALCIUM (BEAKER) (test tlrp=732) 8.2 mg/dL 8.4-10.2 EGFR (BEAKER) (test obxp=3246) 124 mL/min/1.73 sq m ESTIMATED GFR IS NOT ACCURATE CREATININE CLEARANCE IN PREDICTING GLOMERULAR FILTRATION RATE. ESTIMATED GFR IS NOT APPLICABLE FOR DIALYSIS PATIENTS. CBC W/PLT COUNT & AUTO [id number] 05:51:00* Test Item Value Reference Range Comments WHITE BLOOD CELL COUNT (BEAKER) (test ghxt=506) 9.4 K/ L 3.5-10.5 RED BLOOD CELL COUNT (BEAKER) (test hlsk=965) 3.08 M/ L 3.93-5.22 HEMOGLOBIN (BEAKER) (test vmam=173) 8.5 GM/DL 11.2-15.7 HEMATOCRIT (BEAKER) (test mpke=840) 26.3 % 34.1-44.9 MEAN CORPUSCULAR VOLUME (BEAKER) (test nnnp=245) 85.4 fL 79.4-94.8 MEAN CORPUSCULAR HEMOGLOBIN (BEAKER) (test kgxp=984) 27.6 pg 25.6-32.2 MEAN CORPUSCULAR HEMOGLOBIN CONC (BEAKER) (test rycu=573) 32.3 GM/DL 32.2-35.5 RED CELL DISTRIBUTION WIDTH (BEAKER) (test rztr=112) 17.7 % 11.7-14.4 PLATELET COUNT (BEAKER) (test tuob=109) 283 K/CU MM 150-450 MEAN PLATELET VOLUME (BEAKER) (test xwpu=728) 10.9 fL 9.4-12.3 NUCLEATED RED BLOOD CELLS (BEAKER) (test rvdo=843) 0 /100 WBC 0-0 NEUTROPHILS RELATIVE PERCENT (BEAKER) (test zttb=012) 55 % LYMPHOCYTES RELATIVE PERCENT (BEAKER) (test wnwm=850) 29 % MONOCYTES RELATIVE PERCENT (BEAKER) (test sbzt=739) 10 % EOSINOPHILS RELATIVE PERCENT (BEAKER) (test mpbq=539) 4 % BASOPHILS RELATIVE PERCENT (BEAKER) (test kcuz=203) 1 % NEUTROPHILS ABSOLUTE COUNT (BEAKER) (test zndk=859) 5.12 K/ L 1.56-6.13 LYMPHOCYTES ABSOLUTE COUNT (BEAKER) (test otme=099) 2.75 K/ L 1.18-3.74 MONOCYTES ABSOLUTE COUNT (BEAKER) (test ubeq=369) 0.98 K/ L 0.24-0.36 EOSINOPHILS ABSOLUTE COUNT (BEAKER) (test namz=312) 0.34 K/ L 0.04-0.36 BASOPHILS ABSOLUTE COUNT (BEAKER) (test aacn=437) 0.13 K/ L 0.01-0.08 IMMATURE GRANULOCYTES-RELATIVE PERCENT (BEAKER) (test gusg=6142) 1 % 0-1 [id number] 07:21:00* Test Item Value Reference Range Comments MAGNESIUM (BEAKER) (test cdzl=821) 1.6 mg/dL 1.6-2.6 BASIC METABOLIC [id number] 07:21:00* Test Item Value Reference Range Comments SODIUM (BEAKER) (test nney=064) 135 meq/L 136-145 POTASSIUM (BEAKER) (test ntwt=194) 3.8 meq/L 3.5-5.1 CHLORIDE (BEAKER) (test avoo=367) 106 meq/L 98-107 CO2 (BEAKER) (test chww=365) 23 meq/L 22-29 BLOOD UREA NITROGEN (BEAKER) (test frql=338) 5 mg/dL 7-21 CREATININE (BEAKER) (test rybs=482) 0.71 mg/dL 0.57-1.25 GLUCOSE RANDOM (BEAKER) (test gozm=212) 98 mg/dL 70-105 CALCIUM (BEAKER) (test ukuj=386) 8.1 mg/dL 8.4-10.2 EGFR (BEAKER) (test fkhl=7674) 114 mL/min/1.73 sq m ESTIMATED GFR IS NOT ACCURATE CREATININE CLEARANCE IN PREDICTING GLOMERULAR FILTRATION RATE. ESTIMATED GFR IS NOT APPLICABLE FOR DIALYSIS PATIENTS. CBC W/PLT COUNT & AUTO [id number] 06:03:00* Test Item Value Reference Range Comments WHITE BLOOD CELL COUNT (BEAKER) (test azje=623) 12.9 K/ L 3.5-10.5 RED BLOOD CELL COUNT (BEAKER) (test lybv=585) 2.87 M/ L 3.93-5.22 HEMOGLOBIN (BEAKER) (test uwcj=166) 8.1 GM/DL 11.2-15.7 HEMATOCRIT (BEAKER) (test ccvb=771) 24.6 % 34.1-44.9 MEAN CORPUSCULAR VOLUME (BEAKER) (test emea=319) 85.7 fL 79.4-94.8 MEAN CORPUSCULAR HEMOGLOBIN (BEAKER) (test jnwm=880) 28.2 pg 25.6-32.2 MEAN CORPUSCULAR HEMOGLOBIN CONC (BEAKER) (test thiz=731) 32.9 GM/DL 32.2-35.5 RED CELL DISTRIBUTION WIDTH (BEAKER) (test tzsb=655) 18.2 % 11.7-14.4 PLATELET COUNT (BEAKER) (test gfsr=667) 289 K/CU MM 150-450 MEAN PLATELET VOLUME (BEAKER) (test qanm=300) 10.7 fL 9.4-12.3 NUCLEATED RED BLOOD CELLS (BEAKER) (test wzgs=292) 0 /100 WBC 0-0 NEUTROPHILS RELATIVE PERCENT (BEAKER) (test xhwd=907) 55 % LYMPHOCYTES RELATIVE PERCENT (BEAKER) (test yyel=403) 32 % MONOCYTES RELATIVE PERCENT (BEAKER) (test gxrv=717) 9 % EOSINOPHILS RELATIVE PERCENT (BEAKER) (test btrj=856) 3 % BASOPHILS RELATIVE PERCENT (BEAKER) (test dugq=444) 1 % NEUTROPHILS ABSOLUTE COUNT (BEAKER) (test gqnz=713) 7.04 K/ L 1.56-6.13 LYMPHOCYTES ABSOLUTE COUNT (BEAKER) (test uboo=726) 4.13 K/ L 1.18-3.74 MONOCYTES ABSOLUTE COUNT (BEAKER) (test osvg=988) 1.13 K/ L 0.24-0.36 EOSINOPHILS ABSOLUTE COUNT (BEAKER) (test kcvn=834) 0.34 K/ L 0.04-0.36 BASOPHILS ABSOLUTE COUNT (BEAKER) (test zxfn=610) 0.12 K/ L 0.01-0.08 IMMATURE GRANULOCYTES-RELATIVE PERCENT (BEAKER) (test hbfr=7151) 1 % 0-1 [id number] 10:11:00* Test Item Value Reference Range Comments MAGNESIUM (BEAKER) (test acws=120) 1.6 mg/dL 1.6-2.6 Specimen slightly hemolyzed BASIC METABOLIC [id number] 10:11:00* Test Item Value Reference Range Comments SODIUM (BEAKER) (test pkxj=685) 139 meq/L 136-145 POTASSIUM (BEAKER) (test rles=950) 4.0 meq/L 3.5-5.1 Specimen slightly hemolyzed CHLORIDE (BEAKER) (test hcec=223) 111 meq/L 98-107 CO2 (BEAKER) (test mzel=315) 24 meq/L 22-29 BLOOD UREA NITROGEN (BEAKER) (test dqle=416) 4 mg/dL 7-21 CREATININE (BEAKER) (test kbvr=265) 0.66 mg/dL 0.57-1.25 Specimen slightly hemolyzed GLUCOSE RANDOM (BEAKER) (test ceya=754) 80 mg/dL 70-105 CALCIUM (BEAKER) (test gpba=620) 8.0 mg/dL 8.4-10.2 EGFR (BEAKER) (test jciz=8026) 124 mL/min/1.73 sq m ESTIMATED GFR IS NOT ACCURATE CREATININE CLEARANCE IN PREDICTING GLOMERULAR FILTRATION RATE. ESTIMATED GFR IS NOT APPLICABLE FOR DIALYSIS PATIENTS. CBC W/PLT COUNT & AUTO [id number] 07:14:00* Test Item Value Reference Range Comments WHITE BLOOD CELL COUNT (BEAKER) (test egjw=147) 10.0 K/ L 3.5-10.5 RED BLOOD CELL COUNT (BEAKER) (test qeir=197) 2.49 M/ L 3.93-5.22 HEMOGLOBIN (BEAKER) (test cbyy=649) 6.9 GM/DL 11.2-15.7 HEMATOCRIT (BEAKER) (test srmb=295) 21.9 % 34.1-44.9 MEAN CORPUSCULAR VOLUME (BEAKER) (test liwn=832) 88.0 fL 79.4-94.8 MEAN CORPUSCULAR HEMOGLOBIN (BEAKER) (test ftzn=937) 27.7 pg 25.6-32.2 MEAN CORPUSCULAR HEMOGLOBIN CONC (BEAKER) (test udyl=352) 31.5 GM/DL 32.2-35.5 RED CELL DISTRIBUTION WIDTH (BEAKER) (test hcad=497) 18.8 % 11.7-14.4 PLATELET COUNT (BEAKER) (test axmn=056) 264 K/CU MM 150-450 MEAN PLATELET VOLUME (BEAKER) (test cwnx=654) 11.1 fL 9.4-12.3 NUCLEATED RED BLOOD CELLS (BEAKER) (test yvld=966) 0 /100 WBC 0-0 NEUTROPHILS RELATIVE PERCENT (BEAKER) (test euiq=429) 41 % LYMPHOCYTES RELATIVE PERCENT (BEAKER) (test khhd=199) 45 % MONOCYTES RELATIVE PERCENT (BEAKER) (test ekke=785) 10 % EOSINOPHILS RELATIVE PERCENT (BEAKER) (test mmsx=347) 2 % BASOPHILS RELATIVE PERCENT (BEAKER) (test rfjn=976) 1 % NEUTROPHILS ABSOLUTE COUNT (BEAKER) (test anwz=012) 4.11 K/ L 1.56-6.13 LYMPHOCYTES ABSOLUTE COUNT (BEAKER) (test cjoj=622) 4.49 K/ L 1.18-3.74 MONOCYTES ABSOLUTE COUNT (BEAKER) (test opio=678) 1.02 K/ L 0.24-0.36 EOSINOPHILS ABSOLUTE COUNT (BEAKER) (test yrmg=644) 0.22 K/ L 0.04-0.36 BASOPHILS ABSOLUTE COUNT (BEAKER) (test rhbp=307) 0.09 K/ L 0.01-0.08 IMMATURE GRANULOCYTES-RELATIVE PERCENT (BEAKER) (test vvtn=4534) 1 % 0-1 U/S, RENAL, [id number] 19:07:00No stat. To be done as per radiology schedule.Reason for exam:->recurrent UTI'sFINAL REPORT Renal ultrasound. Clinical History: recurrent UTI's. [...] kidney. Otherwise unremarkable study. Signed: Sam Hall MDReport Verified Date/Time: 12/30/2018 19:07:42 Reading Location: [address] Consult Reading Room ALYSIS W/ REFLEX URINE [id number] 00:31:00* Test Item Value Reference Range Comments COLOR (BEAKER) (test joax=618) Yellow CLARITY (BEAKER) (test rvmp=627) Slightly Cloudy SPECIFIC GRAVITY UA (BEAKER) (test sfnv=985) 1.015 1.001-1.035 PH UA (BEAKER) (test egaf=385) 8.5 5.0-8.0 PROTEIN UA (BEAKER) (test mfge=465) Negative Negative GLUCOSE UA (BEAKER) (test erxc=963) Negative Negative KETONES UA (BEAKER) (test aiff=825) Negative Negative BILIRUBIN UA (BEAKER) (test gzij=796) Negative Negative BLOOD UA (BEAKER) (test yoqh=893) Negative Negative NITRITE UA (BEAKER) (test cxgt=613) Negative Negative LEUKOCYTE ESTERASE UA (BEAKER) (test ekoz=392) Small Negative UROBILINOGEN UA (BEAKER) (test pjhk=827) 1.0 mg/dL 0.2-1.0 BACTERIA (BEAKER) (test ngrc=938) Few RBC UA-MANUAL (BEAKER) (test pizf=9081) <5 /HPF WBC UA-MANUAL (BEAKER) (test omtt=5050) 20-50 /HPF SQUAMOUS EPITHELIAL MANUAL (BEAKER) (test pgre=9957) <5 /HPF SOURCE(BEAKER) (test hwjj=2491) CBC W/PLT COUNT & AUTO [id number] 23:55:00* Test Item Value Reference Range Comments WHITE BLOOD CELL COUNT (BEAKER) (test oggz=158) 8.1 K/ L 3.5-10.5 RED BLOOD CELL COUNT (BEAKER) (test mcsv=416) 2.77 M/ L 3.93-5.22 HEMOGLOBIN (BEAKER) (test joor=133) 7.7 GM/DL 11.2-15.7 HEMATOCRIT (BEAKER) (test ihlm=909) 23.6 % 34.1-44.9 MEAN CORPUSCULAR VOLUME (BEAKER) (test rigm=574) 85.2 fL 79.4-94.8 MEAN CORPUSCULAR HEMOGLOBIN (BEAKER) (test wqlo=468) 27.8 pg 25.6-32.2 MEAN CORPUSCULAR HEMOGLOBIN CONC (BEAKER) (test pfov=813) 32.6 GM/DL 32.2-35.5 RED CELL DISTRIBUTION WIDTH (BEAKER) (test jmzm=895) 18.8 % 11.7-14.4 PLATELET COUNT (BEAKER) (test uudq=248) 317 K/CU MM 150-450 MEAN PLATELET VOLUME (BEAKER) (test qpyx=692) 11.1 fL 9.4-12.3 NUCLEATED RED BLOOD CELLS (BEAKER) (test ztjl=439) 1 /100 WBC 0-0 NEUTROPHILS RELATIVE PERCENT (BEAKER) (test siib=861) 49 % LYMPHOCYTES RELATIVE PERCENT (BEAKER) (test zdgl=569) 37 % MONOCYTES RELATIVE PERCENT (BEAKER) (test davp=824) 10 % EOSINOPHILS RELATIVE PERCENT (BEAKER) (test gsno=983) 2 % BASOPHILS RELATIVE PERCENT (BEAKER) (test mwah=796) 1 % NEUTROPHILS ABSOLUTE COUNT (BEAKER) (test kosd=175) 3.98 K/ L 1.56-6.13 LYMPHOCYTES ABSOLUTE COUNT (BEAKER) (test rwrp=921) 3.04 K/ L 1.18-3.74 MONOCYTES ABSOLUTE COUNT (BEAKER) (test zvmp=377) 0.81 K/ L 0.24-0.36 EOSINOPHILS ABSOLUTE COUNT (BEAKER) (test uhsm=278) 0.15 K/ L 0.04-0.36 BASOPHILS ABSOLUTE COUNT (BEAKER) (test zcrd=355) 0.08 K/ L 0.01-0.08 IMMATURE GRANULOCYTES-RELATIVE PERCENT (BEAKER) (test lbwk=7104) 1 % 0-1 RETICULOCYTE [id number] 23:21:00* Test Item Value Reference Range Comments RETICULOCYTE COUNT PCT (BEAKER) (test hzna=961) 8.5 % 0.5-1.7 BASIC METABOLIC [id number] 22:58:00* Test Item Value Reference Range Comments SODIUM (BEAKER) (test duyc=844) 137 meq/L 135-148 POTASSIUM (BEAKER) (test rfja=538) 4.1 meq/L 3.6-5.5 CHLORIDE (BEAKER) (test btuo=271) 108 meq/L 98-106 CO2 (BEAKER) (test pmqk=847) 26 meq/L 24-32 BLOOD UREA NITROGEN (BEAKER) (test jgne=687) 5 mg/dL 10-26 CREATININE (BEAKER) (test tcfn=676) 0.60 mg/dL 0.50-1.20 GLUCOSE RANDOM (BEAKER) (test jmgp=489) 89 mg/dL 70-110 CALCIUM (BEAKER) (test lxgc=311) 8.4 mg/dL 8.5-10.5 EGFR (EDANNA) (test lflx=1162) 138 mL/min/1.73 sq m ESTIMATED GFR IS NOT ACCURATE CREATININE CLEARANCE IN PREDICTING GLOMERULAR FILTRATION RATE. ESTIMATED GFR IS NOT APPLICABLE FOR DIALYSIS PATIENTS. SCREEN, [id number] 22:47:00* Test Item Value Reference Range Comments TEST URINE (DEANNA) (test ubqp=732) Negative RAD, CHEST, 1 VIEW, NON [id number] 22:13:00Reason for exam:->SICKLE CELL PAIN CRISISIs the patient ?->UnknownFINAL REPORT History: Chest pain, history of sickle cell anemia. Comparison: 12/09/2018 Findings: A single view of the chest is submitted. The cardiomediastinal contours are unremarkable. There is no focal consolidation, pneumothorax, large pleural effusion or evidence of overt pulmonary edema. There is no acute bony abnormality. A right IJ chest port is in place. Impression: No acute abnormality. Signed: Bobby Lutz MDReport Verified Date/Time: 12/29/2018 22:13:45 Reading Location: [address] Reading Room El ectronically signed by: BOBBY LUTZ M.D. on 12/29/2018 10:13 PM RETICULOCYTE [id number] 14:12:00* Test Item Value Reference Range Comments RETICULOCYTE COUNT PCT (DEANNA) (test gfag=724) 11.0 % 0.5-1.7 RAD, CHEST, PA OR AP, 1 [id number] 13:57:00Reason for exam:->chest painpatient c/o leg and back pain,both feet swollen onset fridayIs the patient ?->UnknownShould this be performed at the bedside?->NoFINAL REPORT INDICATION:Chest pain. COMPARISON: September 03, 2018 TECHNIQUE: Chest radiograph one view. FINDINGS / IMPRESSION:Heart shadow and central pulmonary veins are prominent. No overt pulmonary edema or pleural effusion is demonstrated. No pneumothorax or pneumonia demonstrated. Right chest port terminates in the mid SVC. Osseous structures unremarkable. Signed: Yvan Rodney MDReport Verified Date/Time: 12/09/2018 13:57:32 Reading Location: [facility] [id number] Consult Reading Room D TROPONIN [id number] 13:28:00* Test Item Value Reference Range Comments RAPID TROPONIN I (BEAKER) (test qior=6631) < ng/mL <0.05 CBC W/PLT COUNT & AUTO [id number] 13:24:00* Test Item Value Reference Range Comments WHITE BLOOD CELL COUNT (BEAKER) (test zamg=020) 11.2 K/ L 4.0-10.0 RED BLOOD CELL COUNT (BEAKER) (test emxi=459) 2.78 M/ L 4.00-5.00 NRBCs were seen, occasional, 1+. HEMOGLOBIN (BEAKER) (test kzeq=243) 8.4 GM/DL 12.0-15.0 HEMATOCRIT (BEAKER) (test yihm=441) 26.5 % 36.0-45.0 MEAN CORPUSCULAR VOLUME (BEAKER) (test mpxj=552) 95.5 fL 82.0-99.0 MEAN CORPUSCULAR HEMOGLOBIN (BEAKER) (test oadg=633) 30.1 pg 27.0-33.0 MEAN CORPUSCULAR HEMOGLOBIN CONC (BEAKER) (test xhhx=197) 31.5 GM/DL 32.0-36.0 RED CELL DISTRIBUTION WIDTH (BEAKER) (test gbvj=838) 16.8 % 10.3-14.2 PLATELET COUNT (BEAKER) (test ziso=483) 387 K/CU MM 150-430 MEAN PLATELET VOLUME (BEAKER) (test ixit=510) 7.8 fL 6.5-10.5 NEUTROPHILS RELATIVE PERCENT (BEAKER) (test jxmh=135) 48 % LYMPHOCYTES RELATIVE PERCENT (BEAKER) (test jaek=077) 39 % MONOCYTES RELATIVE PERCENT (BEAKER) (test bork=007) 9 % EOSINOPHILS RELATIVE PERCENT (BEAKER) (test ctmq=389) 3 % BASOPHILS RELATIVE PERCENT (BEAKER) (test czao=936) 1 % NEUTROPHILS ABSOLUTE COUNT (BEAKER) (test bpgg=007) 5.36 K/ L 1.80-8.00 LYMPHOCYTES ABSOLUTE COUNT (BEAKER) (test ohon=754) 4.41 K/ L 1.48-4.50 MONOCYTES ABSOLUTE COUNT (BEAKER) (test vbhc=148) 1.02 K/ L 0.00-1.30 EOSINOPHILS ABSOLUTE COUNT (BEAKER) (test rcdg=477) 0.34 K/ L 0.00-0.50 BASOPHILS ABSOLUTE COUNT (BEAKER) (test ormf=596) 0.11 K/ L 0.00-0.20 PT/[id number] 13:20:00* Test Item Value Reference Range Comments PROTIME (BEAKER) (test yvro=178) 10.1 seconds 9.8-12.0 INR (BEAKER) (test byav=016) 0.9 <=5.9 PARTIAL THROMBOPLASTIN TIME (BEAKER) (test lrkg=363) 23.7 seconds 25.8-34.5 RECOMMENDED COUMADIN/WARFARIN INR THERAPY RANGESSTANDARD DOSE: 2.0 - 3.0 Inclu fern: PROPHYLAXIS for venous thrombosis, systemic embolization; TREATMENT for dexter ous thrombosis and/or pulmonary embolus.HIGH RISK: Target INR is 2.5-3.5 for pat ients with mechanical heart valves.COMPREHENSIVE METABOLIC [id number] 13:19:00* Test Item Value Reference Range Comments TOTAL PROTEIN (BEAKER) (test epfh=590) 9.0 gm/dL 6.0-8.5 ALBUMIN (BEAKER) (test rstw=6164) 4.4 g/dL 3.5-5.0 ALKALINE PHOSPHATASE (BEAKER) (test fkyr=297) 74 U/L 30-115 BILIRUBIN TOTAL (BEAKER) (test fvob=452) 1.5 mg/dL 0.1-1.2 SODIUM (BEAKER) (test hynq=944) 136 meq/L 135-148 POTASSIUM (BEAKER) (test lmyz=239) 5.2 meq/L 3.6-5.5 CHLORIDE (BEAKER) (test yflc=222) 103 meq/L 98-106 CO2 (BEAKER) (test osxf=236) 28 meq/L 24-32 BLOOD UREA NITROGEN (BEAKER) (test espc=975) 7 mg/dL 10-26 CREATININE (BEAKER) (test jrzd=141) 0.51 mg/dL 0.50-1.20 GLUCOSE RANDOM (BEAKER) (test tuqk=005) 121 mg/dL 70-110 CALCIUM (BEAKER) (test geuj=315) 8.1 mg/dL 8.5-10.5 AST (SGOT) (BEAKER) (test eirz=920) 72 U/L 5-40 ALT (SGPT) (BEAKER) (test vpuf=122) 11 U/L 5-50 EGFR (BEAKER) (test dtqq=9229) 166 mL/min/1.73 sq m ESTIMATED GFR IS NOT ACCURATE CREATININE CLEARANCE IN PREDICTING GLOMERULAR FILTRATION RATE. ESTIMATED GFR IS NOT APPLICABLE FOR DIALYSIS PATIENTS. URINALYSIS W/ [id number] 12:50:00* Test Item Value Reference Range Comments COLOR (BEAKER) (test eumo=056) Yellow CLARITY (BEAKER) (test llmu=055) Clear SPECIFIC GRAVITY UA (BEAKER) (test wary=200) 1.015 1.001-1.035 PH UA (BEAKER) (test qrkw=126) 6.0 5.0-8.0 PROTEIN UA (BEAKER) (test xweb=644) Negative Negative GLUCOSE UA (BEAKER) (test jtpm=199) Negative Negative KETONES UA (BEAKER) (test btby=583) Negative Negative BILIRUBIN UA (BEAKER) (test offa=873) Negative Negative BLOOD UA (BEAKER) (test ajwg=180) Negative Negative NITRITE UA (BEAKER) (test yiux=015) Negative Negative LEUKOCYTE ESTERASE UA (BEAKER) (test mtas=496) Negative Negative UROBILINOGEN UA (BEAKER) (test dncf=016) 1.0 mg/dL 0.2-1.0 BACTERIA (BEAKER) (test xlyp=214) Rare RBC UA-MANUAL (BEAKER) (test oate=9212) None Seen /HPF WBC UA-MANUAL (BEAKER) (test lybg=7623) <5 /HPF SQUAMOUS EPITHELIAL MANUAL (BEAKER) (test zxsg=5388) <5 /HPF SOURCE(BEAKER) (test vtgw=6457) SCREEN, [id number] 12:46:00* Test Item Value Reference Range Comments TEST URINE (BEAKER) (test ryll=559) Negative CBC W/PLT COUNT & AUTO [id number] 11:01:00* Test Item Value Reference Range Comments WHITE BLOOD CELL COUNT (BEAKER) (test bnmg=272) 11.1 K/ L 3.5-10.5 RED BLOOD CELL COUNT (BEAKER) (test nxla=714) 2.81 M/ L 3.93-5.22 HEMOGLOBIN (BEAKER) (test ggjy=350) 8.0 GM/DL 11.2-15.7 HEMATOCRIT (BEAKER) (test rknl=668) 24.5 % 34.1-44.9 MEAN CORPUSCULAR VOLUME (BEAKER) (test bbsl=963) 87.2 fL 79.4-94.8 MEAN CORPUSCULAR HEMOGLOBIN (BEAKER) (test vbwb=451) 28.5 pg 25.6-32.2 MEAN CORPUSCULAR HEMOGLOBIN CONC (BEAKER) (test ahip=909) 32.7 GM/DL 32.2-35.5 RED CELL DISTRIBUTION WIDTH (BEAKER) (test vdcd=313) 18.9 % 11.7-14.4 PLATELET COUNT (BEAKER) (test hyqj=438) 486 K/CU MM 150-450 MEAN PLATELET VOLUME (BEAKER) (test yxkx=941) 10.5 fL 9.4-12.3 NUCLEATED RED BLOOD CELLS (BEAKER) (test scrm=130) 0 /100 WBC 0-0 (CELLAVISION MANUAL DIFF)[id number] 11:01:00* Test Item Value Reference Range Comments NEUTROPHILS - REL (CELLAVISION)(BEAKER) (test litt=3331) 39 % LYMPHOCYTES - REL (CELLAVISION)(BEAKER) (test afhb=0816) 45 % MONOCYTES - REL (CELLAVISION)(BEAKER) (test vakb=1508) 4 % EOSINOPHILS - REL (CELLAVISION)(BEAKER) (test nokx=1724) 4 % BASOPHILS - REL (CELLAVISION)(BEAKER) (test kxdy=2329) 1 % ATYPICAL LYMPHOCYTES - REL (CELLAVISION)(BEAKER) (test illy=2453) 7 % 0-0 NEUTROPHILS - ABS (CELLAVISION)(BEAKER) (test qbet=3805) 4.33 K/ul 1.56-6.13 LYMPHOCYTES - ABS (CELLAVISION)(BEAKER) (test eany=2787) 5.00 K/ul 1.18-3.74 MONOCYTES - ABS (CELLAVISION)(BEAKER) (test qcub=9026) 0.44 K/uL 0.24-0.36 EOSINOPHILS - ABS (CELLAVISION)(BEAKER) (test kxen=6105) 0.44 K/uL 0.04-0.36 BASOPHILS - ABS (CELLAVISION)(BEAKER) (test gcex=0777) 0.11 K/uL 0.01-0.08 ATYPICAL LYMPHOCYTES - ABS (CELLAVISION)(BEAKER) (test qqni=0861) 0.78 K/uL 0.00-0.00 TOTAL COUNTED (BEAKER) (test fahr=2340) 100 MANUAL NRBC PER 100 CELLS (BEAKER) (test witm=8895) 1 /100 WBC 0-0 SMUDGE CELLS (BEAKER) (test vvzw=8877) Present GIANT PLATELETS (BEAKER) (test xknz=679) Present POLYCHROMATOPHILLIC RBCS(BEAKER) (test nwuz=340) 1+ few HYPOCHROMIA (BEAKER) (test yulu=028) 1+ few ANISOCYTOSIS (BEAKER) (test oguf=119) 1+ few POIKILOCYTES (BEAKER) (test ewvs=386) 2+ moderate SCHISTOCYTES (BEAKER) (test ghxj=619) 1+ few PLATELET CONCENTRATION (CELLAVISION)(BEAKER) (test bvhf=5725) Increased Received comment: User comments: Slide comments: CT, CHEST WITH IV CONTRAST- PE TEST [id number] 17:33:00FINAL REPORT Chest CT with contrast, PE protocol [...] multiple gallstones. The osseous structures demonstrate mild de generative change. 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 IMPRESSION:1. No evidence of pulmonary embolism.2. Scattered atel ectasis without focal consolidation.3. Cholelithiasis.4. Small pulmonary nodules measuring up to 4 mm in the right upper lobe. 2017 Fleischner Society Recommend ations for Multiple Solid Lung Nodules Follow-Up base on size (average of long- and short-axis diameters). Use most suspicious nodule for followup. Nodule Size <6 mm Low-Risk Patient: No routine follow-up Nodule Size <6 mm High-Risk Patient: Optional CT at 12 months Nodule Size 6-8 mm Low-Risk Patient: CT at 3- [address] at 18-24 monthsNodule Size 6-8 mm High-Risk Patient: CT at 3-6 months then at 18-24 months Nodule Size (mm) >8 Low-Risk Patient: CT at 3-6 months, then consider CT at 18-24 monthsNodule Size (mm) >8 High-Risk Patient: CT at 3-6 months, then at 18-24 months Signed: Lamonte Frazier [facility] Verified Date/Time: 09/05/2018 17:33:47 Reading Location: [address] Reading Room [id number] 18:52:00* Test Item Value Reference Range Comments D-DIMER QUANTITATIVE (BEAKER) (test skfw=974) 1.26 MG/L FEU <0.50 Intended Use: The D-Dimer Assay can be used to aid in the diagnosis of Deep Vein Thrombosis (DVT) and Pulmonary Embolism Disease (PED).In patients with low pre- test probability, various studies concerning STA Liatest D-dimer test have repor emely that with a cutoff value of 0.50 MG/L FEU, the Negative Predictive Value (SUPPORT SERVICES MANAGER V) regarding the exclusion of thrombosis is within 95-100% range.CBC W/PLT COUNT & AUTO [id number] 06:45:00* Test Item Value Reference Range Comments WHITE BLOOD CELL COUNT (BEAKER) (test ajxd=256) 8.7 K/ L 3.5-10.5 RED BLOOD CELL COUNT (BEAKER) (test fvkw=556) 2.82 M/ L 3.93-5.22 HEMOGLOBIN (BEAKER) (test kgru=025) 7.9 GM/DL 11.2-15.7 HEMATOCRIT (BEAKER) (test tnhk=206) 24.7 % 34.1-44.9 MEAN CORPUSCULAR VOLUME (BEAKER) (test qtna=039) 87.6 fL 79.4-94.8 MEAN CORPUSCULAR HEMOGLOBIN (BEAKER) (test tozp=569) 28.0 pg 25.6-32.2 MEAN CORPUSCULAR HEMOGLOBIN CONC (BEAKER) (test oahe=344) 32.0 GM/DL 32.2-35.5 RED CELL DISTRIBUTION WIDTH (BEAKER) (test lehv=189) 18.9 % 11.7-14.4 PLATELET COUNT (BEAKER) (test hroa=549) 436 K/CU MM 150-450 MEAN PLATELET VOLUME (BEAKER) (test sznk=858) 11.0 fL 9.4-12.3 NUCLEATED RED BLOOD CELLS (BEAKER) (test uvqq=055) 0 /100 WBC 0-0 NEUTROPHILS RELATIVE PERCENT (BEAKER) (test pnji=931) 29 % LYMPHOCYTES RELATIVE PERCENT (BEAKER) (test gnty=048) 51 % MONOCYTES RELATIVE PERCENT (BEAKER) (test xuaq=699) 11 % EOSINOPHILS RELATIVE PERCENT (BEAKER) (test uopc=439) 5 % BASOPHILS RELATIVE PERCENT (BEAKER) (test hxmx=911) 2 % NEUTROPHILS ABSOLUTE COUNT (BEAKER) (test rrvp=382) 2.51 K/ L 1.56-6.13 LYMPHOCYTES ABSOLUTE COUNT (BEAKER) (test vsjr=712) 4.46 K/ L 1.18-3.74 MONOCYTES ABSOLUTE COUNT (BEAKER) (test qlxv=357) 0.99 K/ L 0.24-0.36 EOSINOPHILS ABSOLUTE COUNT (BEAKER) (test utxh=179) 0.46 K/ L 0.04-0.36 BASOPHILS ABSOLUTE COUNT (BEAKER) (test hjld=455) 0.18 K/ L 0.01-0.08 IMMATURE GRANULOCYTES-RELATIVE PERCENT (BEAKER) (test jeqp=9163) 1 % 0-1 SCREEN, [id number] 15:01:00* Test Item Value Reference Range Comments TEST URINE (BEAKER) (test ftsj=806) Negative RAD, CHEST, 1 VIEW, NON [id number] 13:35:00Reason for exam:->chest painShould this be performed at the bedside?->YesFINAL REPORT AP view of the chest dated 09/03/2018 COMPARISON: August 31, 2018 CLINICAL INFORMATION: chest pain Comment: Heart is normal in size. Pulmonary vasculature is unremarkable. Lungs are clear. No pulmonary infiltrate or pleural effusion is present. Port-A-Cath remains in place. Impression: Stable interval examination of the chest. Signed: Madison Ingram Verified Date/Time: 09/03/2018 13:35:27 Reading Location: [facility] [id number] Consult Reading Room W/PLT COUNT & AUTO [id number] 06:21:00* Test Item Value Reference Range Comments WHITE BLOOD CELL COUNT (BEAKER) (test lqjv=806) 6.4 K/ L 3.5-10.5 RED BLOOD CELL COUNT (BEAKER) (test uvpe=739) 2.76 M/ L 3.93-5.22 HEMOGLOBIN (BEAKER) (test qzpw=346) 7.8 GM/DL 11.2-15.7 HEMATOCRIT (BEAKER) (test wfff=142) 24.6 % 34.1-44.9 MEAN CORPUSCULAR VOLUME (BEAKER) (test jlox=416) 89.1 fL 79.4-94.8 MEAN CORPUSCULAR HEMOGLOBIN (BEAKER) (test xhpw=944) 28.3 pg 25.6-32.2 MEAN CORPUSCULAR HEMOGLOBIN CONC (BEAKER) (test ffit=560) 31.7 GM/DL 32.2-35.5 RED CELL DISTRIBUTION WIDTH (BEAKER) (test bzkv=519) 19.7 % 11.7-14.4 PLATELET COUNT (BEAKER) (test qndp=434) 381 K/CU MM 150-450 MEAN PLATELET VOLUME (BEAKER) (test bjhs=782) 10.4 fL 9.4-12.3 NUCLEATED RED BLOOD CELLS (BEAKER) (test dgtn=937) 1 /100 WBC 0-0 NEUTROPHILS RELATIVE PERCENT (BEAKER) (test sghf=057) 24 % LYMPHOCYTES RELATIVE PERCENT (BEAKER) (test rqfl=613) 56 % MONOCYTES RELATIVE PERCENT (BEAKER) (test mxdv=886) 11 % EOSINOPHILS RELATIVE PERCENT (BEAKER) (test chvg=495) 6 % BASOPHILS RELATIVE PERCENT (BEAKER) (test zted=185) 2 % NEUTROPHILS ABSOLUTE COUNT (BEAKER) (test cswh=693) 1.50 K/ L 1.56-6.13 LYMPHOCYTES ABSOLUTE COUNT (BEAKER) (test fcwi=371) 3.59 K/ L 1.18-3.74 MONOCYTES ABSOLUTE COUNT (BEAKER) (test piyy=790) 0.72 K/ L 0.24-0.36 EOSINOPHILS ABSOLUTE COUNT (BEAKER) (test hena=023) 0.40 K/ L 0.04-0.36 BASOPHILS ABSOLUTE COUNT (BEAKER) (test yrec=320) 0.11 K/ L 0.01-0.08 IMMATURE GRANULOCYTES-RELATIVE PERCENT (BEAKER) (test eiww=3023) 1 % 0-1 BASIC METABOLIC [id number] 06:08:00* Test Item Value Reference Range Comments SODIUM (BEAKER) (test bfek=270) 135 meq/L 136-145 POTASSIUM (BEAKER) (test rsuq=492) 4.3 meq/L 3.5-5.1 Specimen slightly hemolyzed CHLORIDE (BEAKER) (test rcyb=324) 105 meq/L 98-107 CO2 (BEAKER) (test fdry=192) 23 meq/L 22-29 BLOOD UREA NITROGEN (BEAKER) (test ferv=587) 4 mg/dL 7-21 CREATININE (BEAKER) (test oguv=538) 0.64 mg/dL 0.57-1.25 Specimen slightly hemolyzed GLUCOSE RANDOM (BEAKER) (test eopd=428) 78 mg/dL 70-105 CALCIUM (BEAKER) (test xlpf=560) 8.2 mg/dL 8.4-10.2 EGFR (BEAKER) (test scyv=7569) 128 mL/min/1.73 sq m ESTIMATED GFR IS NOT ACCURATE CREATININE CLEARANCE IN PREDICTING GLOMERULAR FILTRATION RATE. ESTIMATED GFR IS NOT APPLICABLE FOR DIALYSIS PATIENTS. BASIC METABOLIC [id number] 05:33:00* Test Item Value Reference Range Comments SODIUM (BEAKER) (test kglw=511) 137 meq/L 136-145 POTASSIUM (BEAKER) (test xozn=987) 4.0 meq/L 3.5-5.1 CHLORIDE (BEAKER) (test bpac=326) 105 meq/L 98-107 CO2 (BEAKER) (test fbvp=232) 24 meq/L 22-29 BLOOD UREA NITROGEN (BEAKER) (test iadh=443) 5 mg/dL 7-21 CREATININE (BEAKER) (test edwm=248) 0.69 mg/dL 0.57-1.25 GLUCOSE RANDOM (BEAKER) (test jpsi=883) 85 mg/dL 70-105 CALCIUM (BEAKER) (test bssu=027) 8.8 mg/dL 8.4-10.2 EGFR (BEAKER) (test nvxl=5828) 117 mL/min/1.73 sq m ESTIMATED GFR IS NOT ACCURATE CREATININE CLEARANCE IN PREDICTING GLOMERULAR FILTRATION RATE. ESTIMATED GFR IS NOT APPLICABLE FOR DIALYSIS PATIENTS. CBC W/PLT COUNT & AUTO [id number] 05:15:00* Test Item Value Reference Range Comments WHITE BLOOD CELL COUNT (BEAKER) (test molf=792) 8.0 K/ L 3.5-10.5 RED BLOOD CELL COUNT (BEAKER) (test dsco=193) 2.72 M/ L 3.93-5.22 HEMOGLOBIN (BEAKER) (test vyok=522) 7.8 GM/DL 11.2-15.7 HEMATOCRIT (BEAKER) (test oeby=148) 24.2 % 34.1-44.9 MEAN CORPUSCULAR VOLUME (BEAKER) (test fqhe=500) 89.0 fL 79.4-94.8 MEAN CORPUSCULAR HEMOGLOBIN (BEAKER) (test puyd=083) 28.7 pg 25.6-32.2 MEAN CORPUSCULAR HEMOGLOBIN CONC (BEAKER) (test phsl=325) 32.2 GM/DL 32.2-35.5 RED CELL DISTRIBUTION WIDTH (BEAKER) (test crga=569) 19.7 % 11.7-14.4 PLATELET COUNT (BEAKER) (test lrzq=435) 333 K/CU MM 150-450 MEAN PLATELET VOLUME (BEAKER) (test gdlo=257) 11.3 fL 9.4-12.3 NUCLEATED RED BLOOD CELLS (BEAKER) (test bgks=445) 0 /100 WBC 0-0 NEUTROPHILS RELATIVE PERCENT (BEAKER) (test wttc=637) 31 % LYMPHOCYTES RELATIVE PERCENT (BEAKER) (test xsui=100) 49 % MONOCYTES RELATIVE PERCENT (BEAKER) (test ibrk=083) 12 % EOSINOPHILS RELATIVE PERCENT (BEAKER) (test ibnf=664) 7 % BASOPHILS RELATIVE PERCENT (BEAKER) (test fbdo=201) 2 % NEUTROPHILS ABSOLUTE COUNT (BEAKER) (test bbia=557) 2.44 K/ L 1.56-6.13 LYMPHOCYTES ABSOLUTE COUNT (BEAKER) (test xcik=995) 3.88 K/ L 1.18-3.74 MONOCYTES ABSOLUTE COUNT (BEAKER) (test mskv=671) 0.94 K/ L 0.24-0.36 EOSINOPHILS ABSOLUTE COUNT (BEAKER) (test yrns=676) 0.52 K/ L 0.04-0.36 BASOPHILS ABSOLUTE COUNT (BEAKER) (test nzbw=262) 0.14 K/ L 0.01-0.08 IMMATURE GRANULOCYTES-RELATIVE PERCENT (BEAKER) (test fyqh=7493) 0 % 0-1 BASIC METABOLIC [id number] 05:57:00* Test Item Value Reference Range Comments SODIUM (BEAKER) (test lxqf=104) 138 meq/L 136-145 POTASSIUM (BEAKER) (test eamz=426) 3.9 meq/L 3.5-5.1 CHLORIDE (BEAKER) (test kppf=474) 107 meq/L 98-107 CO2 (BEAKER) (test twnv=987) 24 meq/L 22-29 BLOOD UREA NITROGEN (BEAKER) (test krdo=502) 5 mg/dL 7-21 CREATININE (BEAKER) (test dtka=639) 0.71 mg/dL 0.57-1.25 GLUCOSE RANDOM (BEAKER) (test clgv=795) 97 mg/dL 70-105 CALCIUM (BEAKER) (test dbts=840) 8.7 mg/dL 8.4-10.2 EGFR (BEAKER) (test tbfs=8381) 114 mL/min/1.73 sq m ESTIMATED GFR IS NOT ACCURATE CREATININE CLEARANCE IN PREDICTING GLOMERULAR FILTRATION RATE. ESTIMATED GFR IS NOT APPLICABLE FOR DIALYSIS PATIENTS. RAD, CHEST, 1 VIEW, NON [id number] 04:31:00Reason for exam:->Chest pain in SS patient, c/f possible acute chest syndromeShould this be performed at the bedside?->YesFINAL REPORT EXAMINATION: AP PORTABLE CHEST RADIOGRAPH CLINICAL INDICATION: Chest pain IMPRESSION: Compared with PA and lateral 07/12/2018. A right-sided Port-A-Cath is noted with the tip projecting along the expected course of the superior vena cava. Cardiac silhouette is now mildly prominent. The finding may reflect differences in technique (AP portable versus PA upright). Interval cardiac enlargement cannot be excluded. No evidence of new focal lung consolidation, pulmonary edema, large pleural effusion, pneumothorax or acute osseous abnormality. Signed: Thien Mckeon MDReport Verified Date/Time: 08/31/2018 04:31:34 Reading Location: [address] Reading Room ALYSIS W/ REFLEX URINE [id number] 12:59:00* Test Item Value Reference Range Comments COLOR (BEAKER) (test etcz=413) Yellow CLARITY (BEAKER) (test isif=591) Hazy SPECIFIC GRAVITY UA (BEAKER) (test rxhb=192) 1.008 1.001-1.035 PH UA (BEAKER) (test nrzh=326) 5.5 5.0-8.0 PROTEIN UA (BEAKER) (test fxgu=816) Negative Negative GLUCOSE UA (BEAKER) (test thdr=603) Negative Negative KETONES UA (BEAKER) (test zxiz=891) Negative Negative BILIRUBIN UA (BEAKER) (test tvhg=762) Negative Negative BLOOD UA (BEAKER) (test nifr=789) Negative Negative NITRITE UA (BEAKER) (test nfft=532) Negative Negative LEUKOCYTE ESTERASE UA (BEAKER) (test wkqe=394) Large Negative UROBILINOGEN UA (BEAKER) (test bods=170) 4.0 mg/dL 0.2-1.0 RBC UA (BEAKER) (test vkej=130) 5 /HPF WBC UA (BEAKER) (test imel=772) 134 /HPF BACTERIA (BEAKER) (test sykz=530) Moderate MUCUS (BEAKER) (test diqr=4111) Rare SQUAMOUS EPITHELIAL (BEAKER) (test emem=366) 1 /HPF SOURCE(BEAKER) (test ehst=0163) BASIC METABOLIC [id number] 09:29:00* Test Item Value Reference Range Comments SODIUM (BEAKER) (test dgmd=344) 137 meq/L 136-145 POTASSIUM (BEAKER) (test nfgr=378) 3.8 meq/L 3.5-5.1 CHLORIDE (BEAKER) (test kpqy=508) 107 meq/L 98-107 CO2 (BEAKER) (test cqhg=920) 22 meq/L 22-29 BLOOD UREA NITROGEN (BEAKER) (test eqqq=250) 4 mg/dL 7-21 CREATININE (BEAKER) (test ttmd=843) 0.68 mg/dL 0.57-1.25 GLUCOSE RANDOM (BEAKER) (test ilxq=281) 90 mg/dL 70-105 CALCIUM (BEAKER) (test zbwn=428) 8.4 mg/dL 8.4-10.2 EGFR (BEAKER) (test sofy=4600) 119 mL/min/1.73 sq m ESTIMATED GFR IS NOT ACCURATE CREATININE CLEARANCE IN PREDICTING GLOMERULAR FILTRATION RATE. ESTIMATED GFR IS NOT APPLICABLE FOR DIALYSIS PATIENTS. RAD, HIP, 2 VIEWS, [id number] 14:50:00Reason for exam:->hip painFINAL REPORT COMPARISON: None TECHNIQUE: 2 views of the right hip. FINDINGS: There are no acute fractures or dislocations. No radiopaque foreign bodies. Joint spaces are maintained. No lytic or blastic lesions.. IM PRESSION: No acute bony abnormality. Signed: Rodolfo Walter MDReport Verified Date/Time: 08/29/2018 14:50:25 Reading Location: [address] , HIP, 2 VIEWS, [id number] 13:09:00Reason for exam:->hip painFINAL REPORT Left hip, two views History: Hip pain Comparison: None Findings:The examination is significantly limited by patient body habitus and underpenetration. No definite acute fracture, dislocation, or subluxation is seen. No additional bone or joint space abnormalities are identified. Impr ession:Significantly limited study, without acute findings. If there is clinical concern for an occult fracture, recommend further evaluation with cross-section al imaging. Signed: Hair Lei MDReport Verified Date/Time: 08/29/2018 13: 09:53 Reading Location: [facility] [id number] Ortho Consult Reading Room Electronica ll signed by: HAIR LEI MD on 08/29/2018 01:09 PM CBC W/PLT COUNT & AUTO [id number] 07:28:00* Test Item Value Reference Range Comments WHITE BLOOD CELL COUNT (BEAKER) (test yiuz=780) 9.5 K/ L 3.5-10.5 RED BLOOD CELL COUNT (BEAKER) (test ifvc=025) 2.56 M/ L 3.93-5.22 HEMOGLOBIN (BEAKER) (test bztk=468) 7.3 GM/DL 11.2-15.7 HEMATOCRIT (BEAKER) (test scuq=279) 23.1 % 34.1-44.9 MEAN CORPUSCULAR VOLUME (BEAKER) (test rjnt=844) 90.2 fL 79.4-94.8 MEAN CORPUSCULAR HEMOGLOBIN (BEAKER) (test wxal=490) 28.5 pg 25.6-32.2 MEAN CORPUSCULAR HEMOGLOBIN CONC (BEAKER) (test dbmd=086) 31.6 GM/DL 32.2-35.5 RED CELL DISTRIBUTION WIDTH (BEAKER) (test zsxk=133) 20.9 % 11.7-14.4 PLATELET COUNT (BEAKER) (test mldm=842) 317 K/CU MM 150-450 MEAN PLATELET VOLUME (BEAKER) (test bmst=463) 11.1 fL 9.4-12.3 NUCLEATED RED BLOOD CELLS (BEAKER) (test bgdl=678) 1 /100 WBC 0-0 NEUTROPHILS RELATIVE PERCENT (BEAKER) (test xwmc=474) 34 % LYMPHOCYTES RELATIVE PERCENT (BEAKER) (test qyld=359) 49 % MONOCYTES RELATIVE PERCENT (BEAKER) (test ictr=974) 11 % EOSINOPHILS RELATIVE PERCENT (BEAKER) (test rlor=747) 4 % BASOPHILS RELATIVE PERCENT (BEAKER) (test ltwz=364) 1 % NEUTROPHILS ABSOLUTE COUNT (BEAKER) (test bpez=741) 3.26 K/ L 1.56-6.13 LYMPHOCYTES ABSOLUTE COUNT (BEAKER) (test edfd=279) 4.71 K/ L 1.18-3.74 MONOCYTES ABSOLUTE COUNT (BEAKER) (test zopk=295) 1.04 K/ L 0.24-0.36 EOSINOPHILS ABSOLUTE COUNT (BEAKER) (test gzve=956) 0.38 K/ L 0.04-0.36 BASOPHILS ABSOLUTE COUNT (BEAKER) (test kgdo=182) 0.09 K/ L 0.01-0.08 IMMATURE GRANULOCYTES-RELATIVE PERCENT (BEAKER) (test jaaq=2327) 1 % 0-1 BASIC METABOLIC [id number] 07:10:00* Test Item Value Reference Range Comments SODIUM (BEAKER) (test nlvq=284) 138 meq/L 136-145 POTASSIUM (BEAKER) (test wdut=363) 4.1 meq/L 3.5-5.1 Specimen slightly hemolyzed CHLORIDE (BEAKER) (test zewy=756) 108 meq/L 98-107 CO2 (BEAKER) (test slba=802) 24 meq/L 22-29 BLOOD UREA NITROGEN (BEAKER) (test ybyv=350) 5 mg/dL 7-21 CREATININE (BEAKER) (test jxze=366) 0.64 mg/dL 0.57-1.25 Specimen slightly hemolyzed GLUCOSE RANDOM (BEAKER) (test yurc=040) 89 mg/dL 70-105 CALCIUM (BEAKER) (test hwez=128) 8.3 mg/dL 8.4-10.2 EGFR (BEAKER) (test gxqh=2677) 128 mL/min/1.73 sq m ESTIMATED GFR IS NOT ACCURATE CREATININE CLEARANCE IN PREDICTING GLOMERULAR FILTRATION RATE. ESTIMATED GFR IS NOT APPLICABLE FOR DIALYSIS PATIENTS. BASIC METABOLIC [id number] 07:42:00* Test Item Value Reference Range Comments SODIUM (BEAKER) (test ttrk=970) 138 meq/L 136-145 POTASSIUM (BEAKER) (test xrcs=957) 4.1 meq/L 3.5-5.1 Specimen slightly hemolyzed CHLORIDE (BEAKER) (test ffgq=551) 109 meq/L 98-107 CO2 (BEAKER) (test eccn=103) 23 meq/L 22-29 BLOOD UREA NITROGEN (BEAKER) (test cxni=046) 4 mg/dL 7-21 CREATININE (BEAKER) (test kfiu=609) 0.65 mg/dL 0.57-1.25 Specimen slightly hemolyzed GLUCOSE RANDOM (BEAKER) (test orlr=918) 97 mg/dL 70-105 CALCIUM (BEAKER) (test yqyh=020) 8.4 mg/dL 8.4-10.2 EGFR (BEAKER) (test ljsq=2026) 126 mL/min/1.73 sq m ESTIMATED GFR IS NOT ACCURATE CREATININE CLEARANCE IN PREDICTING GLOMERULAR FILTRATION RATE. ESTIMATED GFR IS NOT APPLICABLE FOR DIALYSIS PATIENTS. CBC W/PLT COUNT & AUTO [id number] 06:20:00* Test Item Value Reference Range Comments WHITE BLOOD CELL COUNT (BEAKER) (test hyww=256) 12.4 K/ L 3.5-10.5 RED BLOOD CELL COUNT (BEAKER) (test wrzv=480) 2.51 M/ L 3.93-5.22 HEMOGLOBIN (BEAKER) (test ntrs=782) 7.2 GM/DL 11.2-15.7 HEMATOCRIT (BEAKER) (test gpji=629) 22.9 % 34.1-44.9 MEAN CORPUSCULAR VOLUME (BEAKER) (test jslg=415) 91.2 fL 79.4-94.8 MEAN CORPUSCULAR HEMOGLOBIN (BEAKER) (test rjov=823) 28.7 pg 25.6-32.2 MEAN CORPUSCULAR HEMOGLOBIN CONC (BEAKER) (test rxjg=941) 31.4 GM/DL 32.2-35.5 RED CELL DISTRIBUTION WIDTH (BEAKER) (test uwff=514) 22.2 % 11.7-14.4 PLATELET COUNT (BEAKER) (test hcgz=533) 313 K/CU MM 150-450 MEAN PLATELET VOLUME (BEAKER) (test wdai=342) 11.4 fL 9.4-12.3 NUCLEATED RED BLOOD CELLS (BEAKER) (test trdl=067) 1 /100 WBC 0-0 NEUTROPHILS RELATIVE PERCENT (BEAKER) (test idfh=720) 46 % LYMPHOCYTES RELATIVE PERCENT (BEAKER) (test dnnf=129) 39 % MONOCYTES RELATIVE PERCENT (BEAKER) (test siwa=736) 11 % EOSINOPHILS RELATIVE PERCENT (BEAKER) (test egsb=701) 2 % BASOPHILS RELATIVE PERCENT (BEAKER) (test jpwf=621) 1 % NEUTROPHILS ABSOLUTE COUNT (BEAKER) (test zone=141) 5.71 K/ L 1.56-6.13 LYMPHOCYTES ABSOLUTE COUNT (BEAKER) (test knlk=962) 4.87 K/ L 1.18-3.74 MONOCYTES ABSOLUTE COUNT (BEAKER) (test sjmc=352) 1.34 K/ L 0.24-0.36 EOSINOPHILS ABSOLUTE COUNT (BEAKER) (test dmzg=413) 0.24 K/ L 0.04-0.36 BASOPHILS ABSOLUTE COUNT (BEAKER) (test kvld=250) 0.11 K/ L 0.01-0.08 IMMATURE GRANULOCYTES-RELATIVE PERCENT (BEAKER) (test azmv=1124) 1 % 0-1 BASIC METABOLIC [id number] 05:49:00* Test Item Value Reference Range Comments SODIUM (BEAKER) (test gcov=316) 138 meq/L 136-145 POTASSIUM (BEAKER) (test qndc=264) 4.2 meq/L 3.5-5.1 Specimen slightly hemolyzed CHLORIDE (BEAKER) (test lfxr=411) 110 meq/L 98-107 CO2 (BEAKER) (test xxir=047) 22 meq/L 22-29 BLOOD UREA NITROGEN (BEAKER) (test abid=824) 5 mg/dL 7-21 CREATININE (BEAKER) (test jysk=730) 0.58 mg/dL 0.57-1.25 Specimen slightly hemolyzed GLUCOSE RANDOM (BEAKER) (test dlyg=945) 80 mg/dL 70-105 CALCIUM (BEAKER) (test wypa=557) 7.8 mg/dL 8.4-10.2 EGFR (BEAKER) (test juhg=1970) 143 mL/min/1.73 sq m ESTIMATED GFR IS NOT ACCURATE CREATININE CLEARANCE IN PREDICTING GLOMERULAR FILTRATION RATE. ESTIMATED GFR IS NOT APPLICABLE FOR DIALYSIS PATIENTS. Specimen slightly ictericHEPATIC FUNCTION [id number] 05:45:00* Test Item Value Reference Range Comments TOTAL PROTEIN (BEAKER) (test rvjw=276) 6.6 gm/dL 6.0-8.3 Specimen slightly hemolyzed ALBUMIN (BEAKER) (test rtxg=5944) 3.2 g/dL 3.5-5.0 Specimen slightly hemolyzed BILIRUBIN TOTAL (BEAKER) (test oxgu=466) 2.7 mg/dL 0.2-1.2 Specimen slightly hemolyzed BILIRUBIN DIRECT (BEAKER) (test trxu=015) 1.1 mg/dL 0.1-0.5 Specimen slightly hemolyzed ALKALINE PHOSPHATASE (BEAKER) (test kyzc=899) 61 U/L 40-150 AST (SGOT) (BEAKER) (test mviv=013) 32 U/L 5-34 Specimen slightly hemolyzed ALT (SGPT) (BEAKER) (test ioui=969) 20 U/L 6-55 Specimen slightly hemolyzed Specimen slightly ictericCBC W/PLT COUNT & AUTO [id number] 05:18:00 * Test Item Value Reference Range Comments WHITE BLOOD CELL COUNT (BEAKER) (test nwrw=384) 10.2 K/ L 3.5-10.5 RED BLOOD CELL COUNT (BEAKER) (test lnkq=297) 2.32 M/ L 3.93-5.22 HEMOGLOBIN (BEAKER) (test zzoh=398) 6.6 GM/DL 11.2-15.7 HEMATOCRIT (BEAKER) (test uzmj=343) 21.2 % 34.1-44.9 MEAN CORPUSCULAR VOLUME (BEAKER) (test fvds=993) 91.4 fL 79.4-94.8 MEAN CORPUSCULAR HEMOGLOBIN (BEAKER) (test okgd=932) 28.4 pg 25.6-32.2 MEAN CORPUSCULAR HEMOGLOBIN CONC (BEAKER) (test uzzr=717) 31.1 GM/DL 32.2-35.5 RED CELL DISTRIBUTION WIDTH (BEAKER) (test wucm=461) 22.4 % 11.7-14.4 PLATELET COUNT (BEAKER) (test phvo=750) 290 K/CU MM 150-450 MEAN PLATELET VOLUME (BEAKER) (test likw=807) 10.6 fL 9.4-12.3 NUCLEATED RED BLOOD CELLS (BEAKER) (test mrgg=502) 2 /100 WBC 0-0 NEUTROPHILS RELATIVE PERCENT (BEAKER) (test bvgg=878) 41 % LYMPHOCYTES RELATIVE PERCENT (BEAKER) (test fyfa=783) 44 % MONOCYTES RELATIVE PERCENT (BEAKER) (test teri=353) 11 % EOSINOPHILS RELATIVE PERCENT (BEAKER) (test isxx=912) 2 % BASOPHILS RELATIVE PERCENT (BEAKER) (test zabu=247) 1 % NEUTROPHILS ABSOLUTE COUNT (BEAKER) (test zeor=816) 4.18 K/ L 1.56-6.13 LYMPHOCYTES ABSOLUTE COUNT (BEAKER) (test tkny=030) 4.54 K/ L 1.18-3.74 MONOCYTES ABSOLUTE COUNT (BEAKER) (test berh=160) 1.12 K/ L 0.24-0.36 EOSINOPHILS ABSOLUTE COUNT (BEAKER) (test ovyg=787) 0.18 K/ L 0.04-0.36 BASOPHILS ABSOLUTE COUNT (BEAKER) (test ddeu=283) 0.13 K/ L 0.01-0.08 IMMATURE GRANULOCYTES-RELATIVE PERCENT (BEAKER) (test lbaf=0117) 1 % 0-1 RETICULOCYTE [id number] 05:18:00* Test Item Value Reference Range Comments RETICULOCYTE COUNT PCT (BEAKER) (test dncn=801) 15.9 % 0.5-1.7 RETICULOCYTE [id number] 22:33:00* Test Item Value Reference Range Comments RETICULOCYTE COUNT PCT (BEAKER) (test oxfr=476) 14.4 % 0.5-1.7 [id number] 20:48:00* Test Item Value Reference Range Comments PROTIME (BEAKER) (test voss=688) 10.9 seconds 9.8-12.0 INR (BEAKER) (test kqwa=733) 1.0 <=5.9 PARTIAL THROMBOPLASTIN TIME (BEAKER) (test gvuv=418) 65.9 seconds 25.8-34.5 RECOMMENDED COUMADIN/WARFARIN INR THERAPY RANGESSTANDARD DOSE: 2.0 - 3.0 Inclu fern: PROPHYLAXIS for venous thrombosis, systemic embolization; TREATMENT for dexter ous thrombosis and/or pulmonary embolus.HIGH RISK: Target INR is 2.5-3.5 for pat ients with mechanical heart valves.COMPREHENSIVE METABOLIC [id number] 20:47:00* Test Item Value Reference Range Comments TOTAL PROTEIN (BEAKER) (test ybyh=868) 8.3 gm/dL 6.0-8.5 ALBUMIN (BEAKER) (test orkv=2305) 4.1 g/dL 3.5-5.0 ALKALINE PHOSPHATASE (BEAKER) (test injm=346) 66 U/L 30-115 BILIRUBIN TOTAL (BEAKER) (test ituy=074) 2.9 mg/dL 0.1-1.2 SODIUM (BEAKER) (test ixtb=647) 141 meq/L 135-148 POTASSIUM (BEAKER) (test yzpq=859) 5.1 meq/L 3.6-5.5 CHLORIDE (BEAKER) (test ulhs=855) 107 meq/L 98-106 CO2 (BEAKER) (test hdbr=274) 29 meq/L 24-32 BLOOD UREA NITROGEN (BEAKER) (test tqki=457) 6 mg/dL 10-26 CREATININE (BEAKER) (test feia=333) 0.55 mg/dL 0.50-1.20 GLUCOSE RANDOM (BEAKER) (test hcxj=976) 97 mg/dL 70-110 CALCIUM (BEAKER) (test sjrt=816) 8.3 mg/dL 8.5-10.5 AST (SGOT) (BEAKER) (test tjxx=770) 67 U/L 5-40 ALT (SGPT) (BEAKER) (test eazb=124) 23 U/L 5-50 EGFR (BEAKER) (test yyno=8385) 152 mL/min/1.73 sq m ESTIMATED GFR IS NOT ACCURATE CREATININE CLEARANCE IN PREDICTING GLOMERULAR FILTRATION RATE. ESTIMATED GFR IS NOT APPLICABLE FOR DIALYSIS PATIENTS. CBC W/PLT COUNT & AUTO [id number] 20:44:00* Test Item Value Reference Range Comments WHITE BLOOD CELL COUNT (BEAKER) (test flav=481) 11.4 K/ L 4.0-10.0 RED BLOOD CELL COUNT (BEAKER) (test xlyr=620) 2.63 M/ L 4.00-5.00 HEMOGLOBIN (BEAKER) (test zxam=233) 7.8 GM/DL 12.0-15.0 HEMATOCRIT (BEAKER) (test ijip=301) 25.6 % 36.0-45.0 MEAN CORPUSCULAR VOLUME (BEAKER) (test bdbc=303) 97.3 fL 82.0-99.0 MEAN CORPUSCULAR HEMOGLOBIN (BEAKER) (test mjhp=004) 29.7 pg 27.0-33.0 MEAN CORPUSCULAR HEMOGLOBIN CONC (BEAKER) (test qglf=626) 30.6 GM/DL 32.0-36.0 RED CELL DISTRIBUTION WIDTH (BEAKER) (test vwmz=054) 20.9 % 10.3-14.2 PLATELET COUNT (BEAKER) (test gwnh=624) 376 K/CU MM 150-430 MEAN PLATELET VOLUME (BEAKER) (test tkxl=499) 8.6 fL 6.5-10.5 NEUTROPHILS RELATIVE PERCENT (BEAKER) (test jjhx=065) 49 % LYMPHOCYTES RELATIVE PERCENT (BEAKER) (test gywz=763) 38 % MONOCYTES RELATIVE PERCENT (BEAKER) (test jpty=168) 10 % EOSINOPHILS RELATIVE PERCENT (BEAKER) (test eqgl=774) 2 % BASOPHILS RELATIVE PERCENT (BEAKER) (test rfmq=541) 1 % NEUTROPHILS ABSOLUTE COUNT (BEAKER) (test cryz=520) 5.59 K/ L 1.80-8.00 LYMPHOCYTES ABSOLUTE COUNT (BEAKER) (test wbbs=144) 4.35 K/ L 1.48-4.50 MONOCYTES ABSOLUTE COUNT (BEAKER) (test evqf=161) 1.14 K/ L 0.00-1.30 EOSINOPHILS ABSOLUTE COUNT (BEAKER) (test cskz=354) 0.19 K/ L 0.00-0.50 BASOPHILS ABSOLUTE COUNT (BEAKER) (test vuyd=517) 0.09 K/ L 0.00-0.20 Sickle cells few.RETICULOCYTE [id number] 23:40:00* Test Item Value Reference Range Comments RETICULOCYTE COUNT PCT (BEAKER) (test veoj=418) 5.1 % 0.5-1.7 CBC W/PLT COUNT & AUTO [id number] 23:01:00* Test Item Value Reference Range Comments WHITE BLOOD CELL COUNT (BEAKER) (test xryg=950) 6.6 K/ L 4.0-10.0 RED BLOOD CELL COUNT (BEAKER) (test jtvv=991) 3.02 M/ L 4.00-5.00 HEMOGLOBIN (BEAKER) (test dqjl=176) 8.5 GM/DL 12.0-15.0 HEMATOCRIT (BEAKER) (test yhuv=939) 27.3 % 36.0-45.0 MEAN CORPUSCULAR VOLUME (BEAKER) (test rtrt=195) 90.5 fL 82.0-99.0 MEAN CORPUSCULAR HEMOGLOBIN (BEAKER) (test tfib=914) 28.3 pg 27.0-33.0 MEAN CORPUSCULAR HEMOGLOBIN CONC (BEAKER) (test jmkr=395) 31.2 GM/DL 32.0-36.0 RED CELL DISTRIBUTION WIDTH (BEAKER) (test ktoh=021) 16.4 % 10.3-14.2 PLATELET COUNT (BEAKER) (test ivqh=315) 347 K/CU MM 150-430 MEAN PLATELET VOLUME (BEAKER) (test sakh=040) 7.9 fL 6.5-10.5 NEUTROPHILS RELATIVE PERCENT (BEAKER) (test sxbh=318) 38 % LYMPHOCYTES RELATIVE PERCENT (BEAKER) (test suac=878) 54 % MONOCYTES RELATIVE PERCENT (BEAKER) (test vmrr=457) 7 % EOSINOPHILS RELATIVE PERCENT (BEAKER) (test kthy=633) 1 % BASOPHILS RELATIVE PERCENT (BEAKER) (test xtgo=275) 1 % NEUTROPHILS ABSOLUTE COUNT (BEAKER) (test ytld=430) 2.46 K/ L 1.80-8.00 LYMPHOCYTES ABSOLUTE COUNT (BEAKER) (test vplf=304) 3.53 K/ L 1.48-4.50 MONOCYTES ABSOLUTE COUNT (BEAKER) (test vgmp=894) 0.47 K/ L 0.00-1.30 EOSINOPHILS ABSOLUTE COUNT (BEAKER) (test sjln=027) 0.05 K/ L 0.00-0.50 BASOPHILS ABSOLUTE COUNT (BEAKER) (test shou=699) 0.05 K/ L 0.00-0.20 Sickle cells 1+RAPID DRUG SCREEN, [id number] 22:57:00* Test Item Value Reference Range Comments METHAMPHETAMINE SCREEN (BEAKER) (test lxkp=6440) Negative Negative BARBITURATE URINE (BEAKER) (test vcbq=077) Negative Negative BENZODIAZEPINE SCREEN URINE (BEAKER) (test pwtk=973) Positive Negative COCAINE (METAB.) SCREEN (BEAKER) (test yzcr=1312) Negative Negative METHADONE SCREEN (BEAKER) (test xwpf=0954) Negative Negative OPIATE SCREEN URINE (BEAKER) (test npcf=464) Positive Negative CANNABINOID SCREEN URINE (BEAKER) (test ufbr=824) Negative Negative TRICYCLIC SCREEN (BEAKER) (test coxn=9724) Negative Negative AMPHETAMINE SCREEN URINE (BEAKER) (test bqpq=972) Negative Negative PHENCYCLIDINE SCREEN URINE (BEAKER) (test ztxf=737) Negative Negative DRUG CUTOFF CONC.Methamphetamine 1000 ng/mLCocaine 300 ng/mLCannabinoid 50 ng/mLBenzodiazepine 300 ng/mLTricyclic 1000 ng/mLBarbiturate 300 ng/mLPhencyclidine 25 ng/m LAmphetamine 1000 ng/mLOpiate 300 ng/mLMethadone 300 ng/mLThis assay provides an unconfirmed qualitative test result for the cl inical management of patients in emergency situations. Chain of custody not main tained. Some deye-wpf-tarwdpx medications, as well as adulterants, may cause isadora ccurate results. Clinical correlation should be applied. A more comprehensive dr ug screen or confirmation of a detected drug may be performed upon request. RETICULOCYTE [id number] 00:56:00* Test Item Value Reference Range Comments RETICULOCYTE COUNT PCT (BEAKER) (test pzhz=225) 5.8 % 0.5-1.7 BASIC METABOLIC [id number] 00:38:00* Test Item Value Reference Range Comments SODIUM (BEAKER) (test wwbo=345) 142 meq/L 135-148 POTASSIUM (BEAKER) (test svsh=284) 4.1 meq/L 3.6-5.5 CHLORIDE (BEAKER) (test auge=509) 108 meq/L 98-106 CO2 (BEAKER) (test blfp=079) 24 meq/L 24-32 BLOOD UREA NITROGEN (BEAKER) (test ugiq=545) 7 mg/dL 10-26 CREATININE (BEAKER) (test yhld=942) 0.60 mg/dL 0.50-1.20 GLUCOSE RANDOM (BEAKER) (test nfxl=302) 98 mg/dL 70-110 CALCIUM (BEAKER) (test kqzn=601) 8.6 mg/dL 8.5-10.5 EGFR (BEAKER) (test divi=4662) 139 mL/min/1.73 sq m ESTIMATED GFR IS NOT ACCURATE CREATININE CLEARANCE IN PREDICTING GLOMERULAR FILTRATION RATE. ESTIMATED GFR IS NOT APPLICABLE FOR DIALYSIS PATIENTS. CBC W/PLT COUNT & AUTO [id number] 00:32:00* Test Item Value Reference Range Comments WHITE BLOOD CELL COUNT (BEAKER) (test klyb=908) 6.0 K/ L 4.0-10.0 RED BLOOD CELL COUNT (BEAKER) (test ytyo=008) 3.39 M/ L 4.00-5.00 HEMOGLOBIN (BEAKER) (test qpqs=312) 9.6 GM/DL 12.0-15.0 HEMATOCRIT (BEAKER) (test yfej=726) 30.9 % 36.0-45.0 MEAN CORPUSCULAR VOLUME (BEAKER) (test hgqz=228) 91.0 fL 82.0-99.0 MEAN CORPUSCULAR HEMOGLOBIN (BEAKER) (test fcho=052) 28.4 pg 27.0-33.0 MEAN CORPUSCULAR HEMOGLOBIN CONC (BEAKER) (test spuv=234) 31.2 GM/DL 32.0-36.0 RED CELL DISTRIBUTION WIDTH (BEAKER) (test dbki=231) 16.2 % 10.3-14.2 PLATELET COUNT (BEAKER) (test brry=066) 399 K/CU MM 150-430 MEAN PLATELET VOLUME (BEAKER) (test cbes=748) 7.6 fL 6.5-10.5 NEUTROPHILS RELATIVE PERCENT (BEAKER) (test uyts=181) 39 % LYMPHOCYTES RELATIVE PERCENT (BEAKER) (test cvsz=882) 52 % MONOCYTES RELATIVE PERCENT (BEAKER) (test pdcq=501) 7 % EOSINOPHILS RELATIVE PERCENT (BEAKER) (test cwmr=785) 1 % BASOPHILS RELATIVE PERCENT (BEAKER) (test femn=080) 1 % NEUTROPHILS ABSOLUTE COUNT (BEAKER) (test oczo=007) 2.33 K/ L 1.80-8.00 LYMPHOCYTES ABSOLUTE COUNT (BEAKER) (test vwix=397) 3.12 K/ L 1.48-4.50 MONOCYTES ABSOLUTE COUNT (BEAKER) (test uthn=135) 0.42 K/ L 0.00-1.30 EOSINOPHILS ABSOLUTE COUNT (BEAKER) (test kljx=491) 0.05 K/ L 0.00-0.50 BASOPHILS ABSOLUTE COUNT (BEAKER) (test cejw=417) 0.05 K/ L 0.00-0.20 BASIC METABOLIC [id number] 06:16:00* Test Item Value Reference Range Comments SODIUM (BEAKER) (test zbbv=452) 137 meq/L 136-145 POTASSIUM (BEAKER) (test iidf=398) 3.8 meq/L 3.5-5.1 CHLORIDE (BEAKER) (test kywa=847) 108 meq/L 98-107 CO2 (BEAKER) (test xnid=844) 21 meq/L 22-29 BLOOD UREA NITROGEN (BEAKER) (test aawn=652) 4 mg/dL 7-21 CREATININE (BEAKER) (test lqgi=897) 0.62 mg/dL 0.57-1.25 GLUCOSE RANDOM (BEAKER) (test lxgs=769) 80 mg/dL 70-105 CALCIUM (BEAKER) (test ulkk=648) 8.4 mg/dL 8.4-10.2 EGFR (BEAKER) (test mdwf=5081) 134 mL/min/1.73 sq m ESTIMATED GFR IS NOT ACCURATE CREATININE CLEARANCE IN PREDICTING GLOMERULAR FILTRATION RATE. ESTIMATED GFR IS NOT APPLICABLE FOR DIALYSIS PATIENTS. CBC (HEMOGRAM ONLY)2018-07-17 06:08:00* Test Item Value Reference Range Comments WHITE BLOOD CELL COUNT (BEAKER) (test lano=229) 7.4 K/ L 3.5-10.5 RED BLOOD CELL COUNT (BEAKER) (test noxq=488) 3.23 M/ L 3.93-5.22 HEMOGLOBIN (BEAKER) (test npvs=700) 9.1 GM/DL 11.2-15.7 HEMATOCRIT (BEAKER) (test zita=903) 28.2 % 34.1-44.9 MEAN CORPUSCULAR VOLUME (BEAKER) (test hhhc=780) 87.3 fL 79.4-94.8 MEAN CORPUSCULAR HEMOGLOBIN (BEAKER) (test fwuj=028) 28.2 pg 25.6-32.2 MEAN CORPUSCULAR HEMOGLOBIN CONC (BEAKER) (test vfcv=609) 32.3 GM/DL 32.2-35.5 RED CELL DISTRIBUTION WIDTH (BEAKER) (test rpba=452) 17.0 % 11.7-14.4 PLATELET COUNT (BEAKER) (test rxsk=500) 277 K/CU MM 150-450 MEAN PLATELET VOLUME (BEAKER) (test rral=379) 10.2 fL 9.4-12.3 NUCLEATED RED BLOOD CELLS (BEAKER) (test bzpj=520) 0 /100 WBC 0-0 BASIC METABOLIC [id number] 05:04:00* Test Item Value Reference Range Comments SODIUM (BEAKER) (test omru=531) 137 meq/L 136-145 POTASSIUM (BEAKER) (test nbnv=021) 3.9 meq/L 3.5-5.1 Specimen slightly hemolyzed CHLORIDE (BEAKER) (test qczs=897) 105 meq/L 98-107 CO2 (BEAKER) (test njnj=497) 23 meq/L 22-29 BLOOD UREA NITROGEN (BEAKER) (test hvmx=913) 4 mg/dL 7-21 CREATININE (BEAKER) (test zxhh=538) 0.66 mg/dL 0.57-1.25 Specimen slightly hemolyzed GLUCOSE RANDOM (BEAKER) (test wgcy=184) 89 mg/dL 70-105 CALCIUM (BEAKER) (test soez=932) 8.9 mg/dL 8.4-10.2 EGFR (BEAKER) (test toug=2394) 124 mL/min/1.73 sq m ESTIMATED GFR IS NOT ACCURATE CREATININE CLEARANCE IN PREDICTING GLOMERULAR FILTRATION RATE. ESTIMATED GFR IS NOT APPLICABLE FOR DIALYSIS PATIENTS. CBC (HEMOGRAM ONLY)2018-07-16 04:27:00* Test Item Value Reference Range Comments WHITE BLOOD CELL COUNT (BEAKER) (test svgg=774) 7.1 K/ L 3.5-10.5 RED BLOOD CELL COUNT (BEAKER) (test iweg=251) 3.32 M/ L 3.93-5.22 HEMOGLOBIN (BEAKER) (test qsxe=933) 9.5 GM/DL 11.2-15.7 HEMATOCRIT (BEAKER) (test zozx=926) 29.1 % 34.1-44.9 MEAN CORPUSCULAR VOLUME (BEAKER) (test sjtw=116) 87.7 fL 79.4-94.8 MEAN CORPUSCULAR HEMOGLOBIN (BEAKER) (test idqi=897) 28.6 pg 25.6-32.2 MEAN CORPUSCULAR HEMOGLOBIN CONC (BEAKER) (test yhwy=674) 32.6 GM/DL 32.2-35.5 RED CELL DISTRIBUTION WIDTH (BEAKER) (test rpdc=308) 16.9 % 11.7-14.4 PLATELET COUNT (BEAKER) (test lxug=280) 290 K/CU MM 150-450 MEAN PLATELET VOLUME (BEAKER) (test xxis=762) 10.2 fL 9.4-12.3 NUCLEATED RED BLOOD CELLS (BEAKER) (test jgxv=102) 0 /100 WBC 0-0 CBC (HEMOGRAM ONLY)2018-07-15 07:15:00* Test Item Value Reference Range Comments WHITE BLOOD CELL COUNT (BEAKER) (test xnje=047) 7.6 K/ L 3.5-10.5 RED BLOOD CELL COUNT (BEAKER) (test zlyx=837) 3.13 M/ L 3.93-5.22 HEMOGLOBIN (BEAKER) (test skei=763) 9.0 GM/DL 11.2-15.7 HEMATOCRIT (BEAKER) (test acpp=586) 27.8 % 34.1-44.9 MEAN CORPUSCULAR VOLUME (BEAKER) (test wmon=316) 88.8 fL 79.4-94.8 MEAN CORPUSCULAR HEMOGLOBIN (BEAKER) (test wwjo=841) 28.8 pg 25.6-32.2 MEAN CORPUSCULAR HEMOGLOBIN CONC (BEAKER) (test alkq=166) 32.4 GM/DL 32.2-35.5 RED CELL DISTRIBUTION WIDTH (BEAKER) (test mqns=994) 17.5 % 11.7-14.4 PLATELET COUNT (BEAKER) (test hccj=237) 299 K/CU MM 150-450 MEAN PLATELET VOLUME (BEAKER) (test dgwy=898) 10.2 fL 9.4-12.3 NUCLEATED RED BLOOD CELLS (BEAKER) (test yfqz=253) 0 /100 WBC 0-0 BASIC METABOLIC [id number] 06:44:00* Test Item Value Reference Range Comments SODIUM (BEAKER) (test qtcc=725) 137 meq/L 136-145 POTASSIUM (BEAKER) (test tttf=194) 3.9 meq/L 3.5-5.1 CHLORIDE (BEAKER) (test arvb=304) 107 meq/L 98-107 CO2 (BEAKER) (test tcva=780) 24 meq/L 22-29 BLOOD UREA NITROGEN (BEAKER) (test xurn=229) 3 mg/dL 7-21 CREATININE (BEAKER) (test aubi=762) 0.63 mg/dL 0.57-1.25 GLUCOSE RANDOM (BEAKER) (test xlfy=376) 77 mg/dL 70-105 CALCIUM (BEAKER) (test xajb=558) 8.5 mg/dL 8.4-10.2 EGFR (BEAKER) (test nvur=8930) 131 mL/min/1.73 sq m ESTIMATED GFR IS NOT ACCURATE CREATININE CLEARANCE IN PREDICTING GLOMERULAR FILTRATION RATE. ESTIMATED GFR IS NOT APPLICABLE FOR DIALYSIS PATIENTS. CBC (HEMOGRAM ONLY)2018-07-14 09:25:00* Test Item Value Reference Range Comments WHITE BLOOD CELL COUNT (BEAKER) (test vzez=678) 8.4 K/ L 3.5-10.5 RED BLOOD CELL COUNT (BEAKER) (test fmll=486) 2.92 M/ L 3.93-5.22 HEMOGLOBIN (BEAKER) (test uyff=730) 8.4 GM/DL 11.2-15.7 HEMATOCRIT (BEAKER) (test hpfi=088) 26.1 % 34.1-44.9 MEAN CORPUSCULAR VOLUME (BEAKER) (test sqhy=865) 89.4 fL 79.4-94.8 MEAN CORPUSCULAR HEMOGLOBIN (BEAKER) (test mxxt=795) 28.8 pg 25.6-32.2 MEAN CORPUSCULAR HEMOGLOBIN CONC (BEAKER) (test nyde=928) 32.2 GM/DL 32.2-35.5 RED CELL DISTRIBUTION WIDTH (BEAKER) (test yned=529) 17.8 % 11.7-14.4 PLATELET COUNT (BEAKER) (test lqnd=300) 312 K/CU MM 150-450 MEAN PLATELET VOLUME (BEAKER) (test urcc=334) 10.5 fL 9.4-12.3 NUCLEATED RED BLOOD CELLS (BEAKER) (test ytic=762) 0 /100 WBC 0-0 BASIC METABOLIC [id number] 07:32:00* Test Item Value Reference Range Comments SODIUM (BEAKER) (test eqgd=061) 139 meq/L 136-145 POTASSIUM (BEAKER) (test fpij=759) 3.8 meq/L 3.5-5.1 Specimen slightly hemolyzed CHLORIDE (BEAKER) (test ddza=936) 107 meq/L 98-107 CO2 (BEAKER) (test fizj=919) 24 meq/L 22-29 BLOOD UREA NITROGEN (BEAKER) (test wvew=177) 3 mg/dL 7-21 CREATININE (BEAKER) (test heyd=995) 0.64 mg/dL 0.57-1.25 Specimen slightly hemolyzed GLUCOSE RANDOM (BEAKER) (test txhi=528) 80 mg/dL 70-105 CALCIUM (BEAKER) (test guoj=421) 8.1 mg/dL 8.4-10.2 EGFR (BEAKER) (test lnqe=8591) 129 mL/min/1.73 sq m ESTIMATED GFR IS NOT ACCURATE CREATININE CLEARANCE IN PREDICTING GLOMERULAR FILTRATION RATE. ESTIMATED GFR IS NOT APPLICABLE FOR DIALYSIS PATIENTS. TROPONIN [id number] 12:56:00* Test Item Value Reference Range Comments TROPONIN I (BEAKER) (test nnng=686) < ng/mL 0.00-0.03 Troponin I (TnI) levels must be interpreted in the context of the presenting sym ptoms and the clinical findings. Elevated TnI levels indicate myocardial damage, but are not specific for ischemic heart disease. Elevated TnI levels are seen in patients with other cardiac conditions (including myocarditis and congestive h eart failure), and slight TnI elevations occur in patients with other conditions , including sepsis, renal failure, acidosis, acute neurological disease, and per sistent tachyarrhythmia.BASIC METABOLIC [id number] 06:59:00* Test Item Value Reference Range Comments SODIUM (BEAKER) (test qyjt=852) 138 meq/L 136-145 POTASSIUM (BEAKER) (test bncy=946) 3.6 meq/L 3.5-5.1 Specimen slightly hemolyzed CHLORIDE (BEAKER) (test xnml=724) 108 meq/L 98-107 CO2 (BEAKER) (test uqpg=550) 23 meq/L 22-29 BLOOD UREA NITROGEN (BEAKER) (test yaby=647) 3 mg/dL 7-21 CREATININE (BEAKER) (test ostz=348) 0.64 mg/dL 0.57-1.25 Specimen slightly hemolyzed GLUCOSE RANDOM (BEAKER) (test zvoi=405) 91 mg/dL 70-105 CALCIUM (BEAKER) (test pyke=654) 8.1 mg/dL 8.4-10.2 EGFR (BEAKER) (test xlhq=6185) 129 mL/min/1.73 sq m ESTIMATED GFR IS NOT ACCURATE CREATININE CLEARANCE IN PREDICTING GLOMERULAR FILTRATION RATE. ESTIMATED GFR IS NOT APPLICABLE FOR DIALYSIS PATIENTS. CBC (HEMOGRAM ONLY)2018-07-13 06:34:00* Test Item Value Reference Range Comments WHITE BLOOD CELL COUNT (BEAKER) (test kwpn=782) 10.3 K/ L 3.5-10.5 RED BLOOD CELL COUNT (BEAKER) (test xfzg=857) 2.95 M/ L 3.93-5.22 HEMOGLOBIN (BEAKER) (test yzxk=280) 8.4 GM/DL 11.2-15.7 HEMATOCRIT (BEAKER) (test ooxz=958) 26.5 % 34.1-44.9 MEAN CORPUSCULAR VOLUME (BEAKER) (test vdng=577) 89.8 fL 79.4-94.8 MEAN CORPUSCULAR HEMOGLOBIN (BEAKER) (test miir=887) 28.5 pg 25.6-32.2 MEAN CORPUSCULAR HEMOGLOBIN CONC (BEAKER) (test rldx=411) 31.7 GM/DL 32.2-35.5 RED CELL DISTRIBUTION WIDTH (BEAKER) (test kauw=501) 17.9 % 11.7-14.4 PLATELET COUNT (BEAKER) (test iuxq=955) 327 K/CU MM 150-450 MEAN PLATELET VOLUME (BEAKER) (test kcue=274) 9.9 fL 9.4-12.3 NUCLEATED RED BLOOD CELLS (BEAKER) (test ozme=806) 0 /100 WBC 0-0 RETICULOCYTE [id number] 19:32:00* Test Item Value Reference Range Comments RETICULOCYTE COUNT PCT (BEAKER) (test kbff=526) 9.3 % 0.5-1.7 CBC W/PLT COUNT & AUTO [id number] 19:05:00* Test Item Value Reference Range Comments WHITE BLOOD CELL COUNT (BEAKER) (test rhhh=734) 6.7 K/ L 4.0-10.0 RED BLOOD CELL COUNT (BEAKER) (test euiv=622) 3.46 M/ L 4.00-5.00 HEMOGLOBIN (BEAKER) (test uczj=990) 9.8 GM/DL 12.0-15.0 HEMATOCRIT (BEAKER) (test oixi=061) 31.5 % 36.0-45.0 MEAN CORPUSCULAR VOLUME (BEAKER) (test vvtp=436) 91.0 fL 82.0-99.0 MEAN CORPUSCULAR HEMOGLOBIN (BEAKER) (test hnrf=322) 28.3 pg 27.0-33.0 MEAN CORPUSCULAR HEMOGLOBIN CONC (BEAKER) (test nmdo=591) 31.1 GM/DL 32.0-36.0 RED CELL DISTRIBUTION WIDTH (BEAKER) (test mfkm=091) 16.1 % 10.3-14.2 PLATELET COUNT (BEAKER) (test yspx=558) 421 K/CU MM 150-430 MEAN PLATELET VOLUME (BEAKER) (test hswu=905) 8.5 fL 6.5-10.5 NEUTROPHILS RELATIVE PERCENT (BEAKER) (test glfw=051) 51 % LYMPHOCYTES RELATIVE PERCENT (BEAKER) (test zdjm=487) 43 % MONOCYTES RELATIVE PERCENT (BEAKER) (test ckrp=084) 5 % EOSINOPHILS RELATIVE PERCENT (BEAKER) (test phyb=494) 1 % BASOPHILS RELATIVE PERCENT (BEAKER) (test yamv=287) 1 % NEUTROPHILS ABSOLUTE COUNT (BEAKER) (test vhja=499) 3.43 K/ L 1.80-8.00 LYMPHOCYTES ABSOLUTE COUNT (BEAKER) (test noiq=331) 2.86 K/ L 1.48-4.50 MONOCYTES ABSOLUTE COUNT (BEAKER) (test xdtc=152) 0.33 K/ L 0.00-1.30 EOSINOPHILS ABSOLUTE COUNT (BEAKER) (test fvcx=244) 0.05 K/ L 0.00-0.50 BASOPHILS ABSOLUTE COUNT (BEAKER) (test rthe=305) 0.05 K/ L 0.00-0.20 COMPREHENSIVE METABOLIC [id number] 18:49:00* Test Item Value Reference Range Comments TOTAL PROTEIN (BEAKER) (test zxmr=307) 8.8 gm/dL 6.0-8.5 ALBUMIN (BEAKER) (test ziiw=7587) 4.3 g/dL 3.5-5.0 ALKALINE PHOSPHATASE (BEAKER) (test viud=409) 62 U/L 30-115 BILIRUBIN TOTAL (BEAKER) (test nclo=685) 1.7 mg/dL 0.1-1.2 SODIUM (BEAKER) (test acwl=548) 140 meq/L 135-148 POTASSIUM (BEAKER) (test phwv=855) 5.0 meq/L 3.6-5.5 CHLORIDE (BEAKER) (test tbvz=579) 110 meq/L 98-106 CO2 (BEAKER) (test noof=523) 23 meq/L 24-32 BLOOD UREA NITROGEN (BEAKER) (test nlxn=440) 4 mg/dL 10-26 CREATININE (BEAKER) (test icxu=036) 0.43 mg/dL 0.50-1.20 GLUCOSE RANDOM (BEAKER) (test uktl=191) 110 mg/dL 70-110 CALCIUM (BEAKER) (test ghap=062) 7.5 mg/dL 8.5-10.5 AST (SGOT) (BEAKER) (test godp=103) 63 U/L 5-40 ALT (SGPT) (BEAKER) (test nlye=714) 17 U/L 5-50 EGFR (BEAKER) (test akiv=3062) 204 mL/min/1.73 sq m ESTIMATED GFR IS NOT ACCURATE CREATININE CLEARANCE IN PREDICTING GLOMERULAR FILTRATION RATE. ESTIMATED GFR IS NOT APPLICABLE FOR DIALYSIS PATIENTS. RAD, CHEST, 2 [id number] 18:34:00Reason for exam:->SICKLE CELL PAIN CRISIS FINAL REPORT Comparison: 06/26/2018 History: Sickle cell pain crisis Findings: Lungs clear. No pleural effusions or pneumothorax. The he art shadow and pulmonary vascularity are normal in appearance. The thoracic aort a appears normal in caliber. Right central venous port catheter is in the SVC re gion. 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 Impression: No evidence of acute cardiopulmonary disease. Signed: Zoraida Gray MDReport Verified Date/Time: 07/12/2018 18:34:39 Reading Location: [address] Transitional Reading Room ALYSIS W/ [id number] 16:40:00* Test Item Value Reference Range Comments COLOR (BEAKER) (test umfd=793) Yellow CLARITY (BEAKER) (test irhi=998) Clear SPECIFIC GRAVITY UA (BEAKER) (test mggr=439) 1.015 1.001-1.035 PH UA (BEAKER) (test xpch=780) 8.5 5.0-8.0 PROTEIN UA (BEAKER) (test sokr=835) Negative Negative GLUCOSE UA (BEAKER) (test kngf=668) Negative Negative KETONES UA (BEAKER) (test cwld=698) Negative Negative BILIRUBIN UA (BEAKER) (test jwrx=008) Negative Negative BLOOD UA (BEAKER) (test tapn=567) Trace Negative NITRITE UA (BEAKER) (test hkmb=584) Negative Negative LEUKOCYTE ESTERASE UA (BEAKER) (test ysfh=206) Negative Negative UROBILINOGEN UA (BEAKER) (test amrk=270) 4.0 mg/dL 0.2-1.0 RBC UA-MANUAL (BEAKER) (test vlif=6200) <5 /HPF WBC UA-MANUAL (BEAKER) (test nbig=5155) None Seen /HPF SQUAMOUS EPITHELIAL MANUAL (BEAKER) (test szpu=2640) <5 /HPF SOURCE(BEAKER) (test wfyi=0337) SCREEN, [id number] 16:29:00* Test Item Value Reference Range Comments TEST URINE (BEAKER) (test viki=421) Negative BASIC METABOLIC [id number] 06:47:00* Test Item Value Reference Range Comments SODIUM (BEAKER) (test yfws=282) 136 meq/L 136-145 POTASSIUM (BEAKER) (test xadj=054) 4.4 meq/L 3.5-5.1 Specimen slightly hemolyzed CHLORIDE (BEAKER) (test vptp=716) 105 meq/L 98-107 CO2 (BEAKER) (test xuoc=405) 23 meq/L 22-29 BLOOD UREA NITROGEN (BEAKER) (test klmc=115) 5 mg/dL 7-21 CREATININE (BEAKER) (test dols=611) 0.66 mg/dL 0.57-1.25 Specimen slightly hemolyzed GLUCOSE RANDOM (BEAKER) (test txzs=627) 100 mg/dL 70-105 CALCIUM (BEAKER) (test ejrj=076) 8.4 mg/dL 8.4-10.2 EGFR (BEAKER) (test xpld=5841) 124 mL/min/1.73 sq m ESTIMATED GFR IS NOT ACCURATE CREATININE CLEARANCE IN PREDICTING GLOMERULAR FILTRATION RATE. ESTIMATED GFR IS NOT APPLICABLE FOR DIALYSIS PATIENTS. [id number] 13:12:00* Test Item Value Reference Range Comments LIPASE (BEAKER) (test nkra=130) < U/L 8-78 Add onAdd onHEPATIC FUNCTION [id number] 13:11:00* Test Item Value Reference Range Comments TOTAL PROTEIN (BEAKER) (test styc=950) 7.9 gm/dL 6.0-8.3 Specimen slightly hemolyzed ALBUMIN (BEAKER) (test czam=1436) 3.7 g/dL 3.5-5.0 Specimen slightly hemolyzed BILIRUBIN TOTAL (BEAKER) (test hice=190) 1.1 mg/dL 0.2-1.2 Specimen slightly hemolyzed BILIRUBIN DIRECT (BEAKER) (test pmov=957) 0.5 mg/dL 0.1-0.5 Specimen slightly hemolyzed ALKALINE PHOSPHATASE (BEAKER) (test nptw=337) 74 U/L 40-150 AST (SGOT) (BEAKER) (test rgll=467) 38 U/L 5-34 Specimen slightly hemolyzed ALT (SGPT) (BEAKER) (test fxjf=972) 20 U/L 6-55 Specimen slightly hemolyzed Add onAdd onBASIC METABOLIC [id number] 06:26:00* Test Item Value Reference Range Comments SODIUM (BEAKER) (test shjz=288) 137 meq/L 136-145 POTASSIUM (BEAKER) (test trnd=164) 4.0 meq/L 3.5-5.1 Specimen slightly hemolyzed CHLORIDE (BEAKER) (test eees=436) 107 meq/L 98-107 CO2 (BEAKER) (test xoqv=630) 25 meq/L 22-29 BLOOD UREA NITROGEN (BEAKER) (test ipuy=157) 4 mg/dL 7-21 CREATININE (BEAKER) (test idfn=380) 0.62 mg/dL 0.57-1.25 Specimen slightly hemolyzed GLUCOSE RANDOM (BEAKER) (test siwm=043) 93 mg/dL 70-105 CALCIUM (BEAKER) (test dvor=981) 8.6 mg/dL 8.4-10.2 EGFR (BEAKER) (test hlna=3279) 134 mL/min/1.73 sq m ESTIMATED GFR IS NOT ACCURATE CREATININE CLEARANCE IN PREDICTING GLOMERULAR FILTRATION RATE. ESTIMATED GFR IS NOT APPLICABLE FOR DIALYSIS PATIENTS. CBC (HEMOGRAM ONLY)2018-07-01 06:17:00* Test Item Value Reference Range Comments WHITE BLOOD CELL COUNT (BEAKER) (test txzr=231) 11.9 K/ L 3.5-10.5 RED BLOOD CELL COUNT (BEAKER) (test alls=834) 2.82 M/ L 3.93-5.22 HEMOGLOBIN (BEAKER) (test wxxw=729) 8.2 GM/DL 11.2-15.7 HEMATOCRIT (BEAKER) (test hnsi=655) 25.8 % 34.1-44.9 MEAN CORPUSCULAR VOLUME (BEAKER) (test emwc=348) 91.5 fL 79.4-94.8 MEAN CORPUSCULAR HEMOGLOBIN (BEAKER) (test cfyh=913) 29.1 pg 25.6-32.2 MEAN CORPUSCULAR HEMOGLOBIN CONC (BEAKER) (test xceh=951) 31.8 GM/DL 32.2-35.5 RED CELL DISTRIBUTION WIDTH (BEAKER) (test rwjt=304) 19.7 % 11.7-14.4 PLATELET COUNT (BEAKER) (test grsv=388) 389 K/CU MM 150-450 MEAN PLATELET VOLUME (BEAKER) (test plgf=753) 10.2 fL 9.4-12.3 NUCLEATED RED BLOOD CELLS (BEAKER) (test dagt=304) 2 /100 WBC 0-0 BASIC METABOLIC [id number] 06:21:00* Test Item Value Reference Range Comments SODIUM (BEAKER) (test scom=912) 137 meq/L 136-145 POTASSIUM (BEAKER) (test zahe=974) 4.0 meq/L 3.5-5.1 Specimen slightly hemolyzed CHLORIDE (BEAKER) (test ijbk=788) 108 meq/L 98-107 CO2 (BEAKER) (test npls=659) 26 meq/L 22-29 BLOOD UREA NITROGEN (BEAKER) (test hdyn=141) 5 mg/dL 7-21 CREATININE (BEAKER) (test dmoj=662) 0.72 mg/dL 0.57-1.25 Specimen slightly hemolyzed GLUCOSE RANDOM (BEAKER) (test pksz=621) 91 mg/dL 70-105 CALCIUM (BEAKER) (test tjxv=737) 7.8 mg/dL 8.4-10.2 EGFR (BEAKER) (test ryam=7836) 112 mL/min/1.73 sq m ESTIMATED GFR IS NOT ACCURATE CREATININE CLEARANCE IN PREDICTING GLOMERULAR FILTRATION RATE. ESTIMATED GFR IS NOT APPLICABLE FOR DIALYSIS PATIENTS. CBC (HEMOGRAM ONLY)2018-06-30 06:04:00* Test Item Value Reference Range Comments WHITE BLOOD CELL COUNT (BEAKER) (test ppcl=219) 12.0 K/ L 3.5-10.5 RED BLOOD CELL COUNT (BEAKER) (test jlxk=077) 2.43 M/ L 3.93-5.22 HEMOGLOBIN (BEAKER) (test angp=806) 6.9 GM/DL 11.2-15.7 HEMATOCRIT (BEAKER) (test jqtz=469) 22.4 % 34.1-44.9 MEAN CORPUSCULAR VOLUME (BEAKER) (test fele=285) 92.2 fL 79.4-94.8 MEAN CORPUSCULAR HEMOGLOBIN (BEAKER) (test edsh=874) 28.4 pg 25.6-32.2 MEAN CORPUSCULAR HEMOGLOBIN CONC (BEAKER) (test euzm=362) 30.8 GM/DL 32.2-35.5 RED CELL DISTRIBUTION WIDTH (BEAKER) (test nzxs=059) 19.5 % 11.7-14.4 PLATELET COUNT (BEAKER) (test diaj=463) 339 K/CU MM 150-450 MEAN PLATELET VOLUME (BEAKER) (test ilem=059) 11.0 fL 9.4-12.3 NUCLEATED RED BLOOD CELLS (BEAKER) (test zold=307) 2 /100 WBC 0-0 BASIC METABOLIC [id number] 07:32:00* Test Item Value Reference Range Comments SODIUM (BEAKER) (test rawa=668) 135 meq/L 136-145 POTASSIUM (BEAKER) (test lvbt=535) 4.3 meq/L 3.5-5.1 Specimen slightly hemolyzed CHLORIDE (BEAKER) (test wzxz=772) 107 meq/L 98-107 CO2 (BEAKER) (test qoqa=405) 22 meq/L 22-29 BLOOD UREA NITROGEN (BEAKER) (test qcxn=722) 3 mg/dL 7-21 CREATININE (BEAKER) (test mwwq=739) 0.69 mg/dL 0.57-1.25 Specimen slightly hemolyzed GLUCOSE RANDOM (BEAKER) (test jynw=515) 104 mg/dL 70-105 CALCIUM (BEAKER) (test mvao=522) 7.9 mg/dL 8.4-10.2 EGFR (BEAKER) (test drfq=9171) 118 mL/min/1.73 sq m ESTIMATED GFR IS NOT ACCURATE CREATININE CLEARANCE IN PREDICTING GLOMERULAR FILTRATION RATE. ESTIMATED GFR IS NOT APPLICABLE FOR DIALYSIS PATIENTS. CBC (HEMOGRAM ONLY)2018-06-29 06:18:00* Test Item Value Reference Range Comments WHITE BLOOD CELL COUNT (BEAKER) (test rypc=920) 12.3 K/ L 3.5-10.5 RED BLOOD CELL COUNT (BEAKER) (test ugfg=366) 2.57 M/ L 3.93-5.22 HEMOGLOBIN (BEAKER) (test szsz=135) 7.3 GM/DL 11.2-15.7 HEMATOCRIT (BEAKER) (test eiit=636) 23.2 % 34.1-44.9 MEAN CORPUSCULAR VOLUME (BEAKER) (test jteb=417) 90.3 fL 79.4-94.8 MEAN CORPUSCULAR HEMOGLOBIN (BEAKER) (test wwyo=617) 28.4 pg 25.6-32.2 MEAN CORPUSCULAR HEMOGLOBIN CONC (BEAKER) (test iknj=234) 31.5 GM/DL 32.2-35.5 RED CELL DISTRIBUTION WIDTH (BEAKER) (test qqit=422) 18.9 % 11.7-14.4 PLATELET COUNT (BEAKER) (test crmg=430) 313 K/CU MM 150-450 MEAN PLATELET VOLUME (BEAKER) (test ajhg=508) 10.5 fL 9.4-12.3 NUCLEATED RED BLOOD CELLS (BEAKER) (test wruq=360) 1 /100 WBC 0-0 BASIC METABOLIC [id number] 07:10:00* Test Item Value Reference Range Comments SODIUM (BEAKER) (test qyuj=558) 137 meq/L 136-145 POTASSIUM (BEAKER) (test hyve=367) 4.0 meq/L 3.5-5.1 Specimen slightly hemolyzed CHLORIDE (BEAKER) (test agzt=824) 110 meq/L 98-107 CO2 (BEAKER) (test tkcw=180) 22 meq/L 22-29 BLOOD UREA NITROGEN (BEAKER) (test lcxn=198) 4 mg/dL 7-21 CREATININE (BEAKER) (test zlqu=756) 0.70 mg/dL 0.57-1.25 Specimen slightly hemolyzed GLUCOSE RANDOM (BEAKER) (test sacn=497) 115 mg/dL 70-105 CALCIUM (BEAKER) (test tbqn=295) 7.9 mg/dL 8.4-10.2 EGFR (BEAKER) (test zkgx=6980) 116 mL/min/1.73 sq m ESTIMATED GFR IS NOT ACCURATE CREATININE CLEARANCE IN PREDICTING GLOMERULAR FILTRATION RATE. ESTIMATED GFR IS NOT APPLICABLE FOR DIALYSIS PATIENTS. CBC (HEMOGRAM ONLY)2018-06-28 06:47:00* Test Item Value Reference Range Comments WHITE BLOOD CELL COUNT (BEAKER) (test dszl=729) 7.8 K/ L 3.5-10.5 RED BLOOD CELL COUNT (BEAKER) (test qfoj=976) 2.51 M/ L 3.93-5.22 HEMOGLOBIN (BEAKER) (test omit=692) 7.1 GM/DL 11.2-15.7 HEMATOCRIT (BEAKER) (test json=848) 22.6 % 34.1-44.9 MEAN CORPUSCULAR VOLUME (BEAKER) (test ezsc=069) 90.0 fL 79.4-94.8 MEAN CORPUSCULAR HEMOGLOBIN (BEAKER) (test mipb=871) 28.3 pg 25.6-32.2 MEAN CORPUSCULAR HEMOGLOBIN CONC (BEAKER) (test ceql=819) 31.4 GM/DL 32.2-35.5 RED CELL DISTRIBUTION WIDTH (BEAKER) (test vcou=582) 18.5 % 11.7-14.4 PLATELET COUNT (BEAKER) (test hbww=949) 266 K/CU MM 150-450 MEAN PLATELET VOLUME (BEAKER) (test ekdb=722) 11.1 fL 9.4-12.3 NUCLEATED RED BLOOD CELLS (BEAKER) (test qyao=581) 1 /100 WBC 0-0 BASIC METABOLIC [id number] 07:11:00* Test Item Value Reference Range Comments SODIUM (BEAKER) (test dhft=417) 137 meq/L 136-145 POTASSIUM (BEAKER) (test zttu=779) 4.1 meq/L 3.5-5.1 Specimen slightly hemolyzed CHLORIDE (BEAKER) (test tqsj=951) 111 meq/L 98-107 CO2 (BEAKER) (test rroc=203) 21 meq/L 22-29 BLOOD UREA NITROGEN (BEAKER) (test rweq=086) 5 mg/dL 7-21 CREATININE (BEAKER) (test woel=799) 0.71 mg/dL 0.57-1.25 Specimen slightly hemolyzed GLUCOSE RANDOM (BEAKER) (test islx=705) 93 mg/dL 70-105 CALCIUM (BEAKER) (test upsm=640) 8.1 mg/dL 8.4-10.2 EGFR (BEAKER) (test pirv=4660) 114 mL/min/1.73 sq m ESTIMATED GFR IS NOT ACCURATE CREATININE CLEARANCE IN PREDICTING GLOMERULAR FILTRATION RATE. ESTIMATED GFR IS NOT APPLICABLE FOR DIALYSIS PATIENTS. URINALYSIS W/ REFLEX URINE [id number] 07:50:00* Test Item Value Reference Range Comments COLOR (BEAKER) (test zhrk=784) Yellow CLARITY (BEAKER) (test jork=795) Clear SPECIFIC GRAVITY UA (BEAKER) (test pofd=425) 1.013 1.001-1.035 PH UA (BEAKER) (test mvvz=983) 6.5 5.0-8.0 PROTEIN UA (BEAKER) (test qhlc=462) Negative Negative GLUCOSE UA (BEAKER) (test vzid=518) Negative Negative KETONES UA (BEAKER) (test pglj=140) Negative Negative BILIRUBIN UA (BEAKER) (test dmrx=973) Negative Negative BLOOD UA (BEAKER) (test olry=713) Negative Negative NITRITE UA (BEAKER) (test hhpg=004) Negative Negative LEUKOCYTE ESTERASE UA (BEAKER) (test nsqb=607) Negative Negative UROBILINOGEN UA (BEAKER) (test rvfx=666) 8.0 mg/dL 0.2-1.0 RBC UA (BEAKER) (test zmof=440) 0 /HPF WBC UA (BEAKER) (test sein=491) 1 /HPF SQUAMOUS EPITHELIAL (BEAKER) (test ykeb=707) < /HPF SOURCE(BEAKER) (test oqle=5745) SCREEN, [id number] 07:27:00* Test Item Value Reference Range Comments TEST URINE (BEAKER) (test xsrj=718) Negative BASIC METABOLIC [id number] 06:07:00* Test Item Value Reference Range Comments SODIUM (BEAKER) (test ccfz=357) 138 meq/L 136-145 POTASSIUM (BEAKER) (test lbcx=080) 3.8 meq/L 3.5-5.1 CHLORIDE (BEAKER) (test ffqt=409) 110 meq/L 98-107 CO2 (BEAKER) (test xkbj=698) 22 meq/L 22-29 BLOOD UREA NITROGEN (BEAKER) (test koni=039) 7 mg/dL 7-21 CREATININE (BEAKER) (test rbeb=676) 0.69 mg/dL 0.57-1.25 GLUCOSE RANDOM (BEAKER) (test cdfu=620) 87 mg/dL 70-105 CALCIUM (BEAKER) (test exfp=082) 8.2 mg/dL 8.4-10.2 EGFR (BEAKER) (test ftan=1390) 118 mL/min/1.73 sq m ESTIMATED GFR IS NOT ACCURATE CREATININE CLEARANCE IN PREDICTING GLOMERULAR FILTRATION RATE. ESTIMATED GFR IS NOT APPLICABLE FOR DIALYSIS PATIENTS. RAD, CHEST, 1 VIEW, NON [id number] 05:54:00Reason for exam:->SICKLE CELL PAIN CRISISIs the patient ?->NoShould this be performed at the bedside?- >YesFINAL REPORT INDICATION: SICKLE CELL PAIN CRISIS COMPARISON: March 09, 2018 TECHNIQUE: Single frontal view of the chest. FINDINGS: Lungs and pleura: Minimal interstitial opacities No effusion.Heart and mediastinum: Normal heart size. Unremarkable mediastinal contours.Osseous structures: No acute abnormality.Other: Right-sided Port-A-Cath with tip in the SVC. IMPRESSION: Minimal bilateral interstitial opacities without rob airspace consolidation, favored to represent atelectasis Signed: Dion Mckinnon MDReport Verified Date/Time: 06/26/2018 05:54:42 Reading Location: [address] Neuro Reading Room CULOCYTE [id number] 05:53:00* Test Item Value Reference Range Comments RETICULOCYTE COUNT PCT (BEAKER) (test mmst=485) 10.2 % 0.5-1.7 CBC W/PLT COUNT & AUTO [id number] 05:52:00* Test Item Value Reference Range Comments WHITE BLOOD CELL COUNT (BEAKER) (test jgun=415) 6.7 K/ L 3.5-10.5 RED BLOOD CELL COUNT (BEAKER) (test yzen=411) 2.88 M/ L 3.93-5.22 HEMOGLOBIN (BEAKER) (test foer=312) 8.2 GM/DL 11.2-15.7 HEMATOCRIT (BEAKER) (test nzhz=447) 26.5 % 34.1-44.9 MEAN CORPUSCULAR VOLUME (BEAKER) (test dzde=575) 92.0 fL 79.4-94.8 MEAN CORPUSCULAR HEMOGLOBIN (BEAKER) (test shlm=235) 28.5 pg 25.6-32.2 MEAN CORPUSCULAR HEMOGLOBIN CONC (BEAKER) (test zhjh=743) 30.9 GM/DL 32.2-35.5 RED CELL DISTRIBUTION WIDTH (BEAKER) (test jazr=610) 19.3 % 11.7-14.4 PLATELET COUNT (BEAKER) (test lvfh=494) 299 K/CU MM 150-450 MEAN PLATELET VOLUME (BEAKER) (test lata=635) 10.2 fL 9.4-12.3 NUCLEATED RED BLOOD CELLS (BEAKER) (test arqc=464) 1 /100 WBC 0-0 NEUTROPHILS RELATIVE PERCENT (BEAKER) (test lszp=916) 29 % LYMPHOCYTES RELATIVE PERCENT (BEAKER) (test fnjw=254) 58 % MONOCYTES RELATIVE PERCENT (BEAKER) (test ikvx=098) 9 % EOSINOPHILS RELATIVE PERCENT (BEAKER) (test mimj=664) 2 % BASOPHILS RELATIVE PERCENT (BEAKER) (test ktmz=909) 1 % NEUTROPHILS ABSOLUTE COUNT (BEAKER) (test qrrf=081) 1.91 K/ L 1.56-6.13 LYMPHOCYTES ABSOLUTE COUNT (BEAKER) (test xyqv=584) 3.89 K/ L 1.18-3.74 MONOCYTES ABSOLUTE COUNT (BEAKER) (test unui=436) 0.62 K/ L 0.24-0.36 EOSINOPHILS ABSOLUTE COUNT (BEAKER) (test gyyz=701) 0.14 K/ L 0.04-0.36 BASOPHILS ABSOLUTE COUNT (BEAKER) (test lsup=281) 0.07 K/ L 0.01-0.08 IMMATURE GRANULOCYTES-RELATIVE PERCENT (BEAKER) (test zyyu=2429) 1 % 0-1 SPUTUM CULTURE + GRAM [id number] 10:11:00* Test Item Value Reference Range Comments CULTURE (BEAKER) (test olof=8704) <1+ Same organism has been isolated from cultures(s) of the same body site within 3 days. Repeat identification and susceptibility testing performed only after consultation with the clinical microbiology laboratory.Refer to previous culture ofMethicillin resistant Staphylococcus aureus GRAM STAIN RESULT (BEAKER) (test uyqt=8583) 3+ WBCs GRAM STAIN RESULT (BEAKER) (test vnht=058083) 10-15 epithelial cells GRAM STAIN RESULT (BEAKER) (test bjwa=290470) 4+ gram negative rods GRAM STAIN RESULT (BEAKER) (test yskx=876259) 1+ gram positive rods GRAM STAIN RESULT (BEAKER) (test vvmm=760642) 1+ gram positive cocci in pairs 4+ Normal respiratory jazlyn presentBLOOD [id number] 11:00:00* Test Item Value Reference Range Comments CULTURE (BEAKER) (test jksp=7808) No growth in 5 days BLOOD [id number] 11:00:00* Test Item Value Reference Range Comments CULTURE (BEAKER) (test ymas=8566) No growth in 5 days MRSA [id number] 10:03:00* Test Item Value Reference Range Comments CULTURE (BEAKER) (test mxkz=8159) METHICILLIN RESISTANT STAPHYLOCOCCUS AUREUS <1+ Methicillin resistant Staphylococcus aureus Clindamycin (test code=10) Erythromycin (test code=4) Linezolid (test code=40) Oxacillin (test code=14) Rifampin (test code=43) Tetracycline (test code=2) Trimethoprim + Sulfamethoxazole (test code=47) Vancomycin (test code=13) 2+ Normal respiratory jazlyn presentRAD, CHEST, 2 [id number] 09:36:00Reason for exam:->right lung pneumoniaFINAL REPORT Chest x-ray, PA and lateral views Clinical History: right lung pneumonia Comparison: 03/04/2018 Discussion: There is no pneumothorax, pulmonary edema or pleural effusion. Mild patchy opacities are seen, right more than left, without lobar consolidation. The cardiac silhouette appears within normal limits. Right-sided Port-A-Cath in the SVC. No acute osseous abnormality. Signed: Lamonte Frazier MDReport Verified Date/Time: 03/09/2018 09:36:27 Reading Location: [facility] C013X Ortho Consult Reading Room [id number] 07:02:00* Test Item Value Reference Range Comments MAGNESIUM (BEAKER) (test hszi=094) 1.8 mg/dL 1.6-2.6 Specimen slightly hemolyzed BASIC METABOLIC [id number] 07:02:00* Test Item Value Reference Range Comments SODIUM (BEAKER) (test exol=793) 137 meq/L 136-145 POTASSIUM (BEAKER) (test eiiy=574) 4.0 meq/L 3.5-5.1 Specimen slightly hemolyzed CHLORIDE (BEAKER) (test dvqg=843) 103 meq/L 98-107 CO2 (BEAKER) (test glry=523) 24 meq/L 22-29 BLOOD UREA NITROGEN (BEAKER) (test wkvd=900) 4 mg/dL 7-21 CREATININE (BEAKER) (test psrr=194) 0.62 mg/dL 0.57-1.25 Specimen slightly hemolyzed GLUCOSE RANDOM (BEAKER) (test hoga=106) 94 mg/dL 70-105 CALCIUM (BEAKER) (test xcpj=639) 8.7 mg/dL 8.4-10.2 EGFR (BEAKER) (test exhc=6464) 134 mL/min/1.73 sq m ESTIMATED GFR IS NOT ACCURATE CREATININE CLEARANCE IN PREDICTING GLOMERULAR FILTRATION RATE. ESTIMATED GFR IS NOT APPLICABLE FOR DIALYSIS PATIENTS. CBC (HEMOGRAM ONLY)2018-03-09 06:37:00* Test Item Value Reference Range Comments WHITE BLOOD CELL COUNT (BEAKER) (test igxb=592) 8.5 K/ L 3.5-10.5 RED BLOOD CELL COUNT (BEAKER) (test zizi=711) 3.31 M/ L 3.93-5.22 HEMOGLOBIN (BEAKER) (test hqdj=488) 9.3 GM/DL 11.2-15.7 HEMATOCRIT (BEAKER) (test qqbc=363) 29.5 % 34.1-44.9 MEAN CORPUSCULAR VOLUME (BEAKER) (test vhvy=482) 89.1 fL 79.4-94.8 MEAN CORPUSCULAR HEMOGLOBIN (BEAKER) (test ixmm=446) 28.1 pg 25.6-32.2 MEAN CORPUSCULAR HEMOGLOBIN CONC (BEAKER) (test tkhy=631) 31.5 GM/DL 32.2-35.5 RED CELL DISTRIBUTION WIDTH (BEAKER) (test pntg=407) 21.4 % 11.7-14.4 PLATELET COUNT (BEAKER) (test ctdn=850) 260 K/CU MM 150-450 MEAN PLATELET VOLUME (BEAKER) (test hxhl=932) 10.3 fL 9.4-12.3 NUCLEATED RED BLOOD CELLS (BEAKER) (test idlx=373) 0 /100 WBC 0-0 [id number] 07:16:00* Test Item Value Reference Range Comments MAGNESIUM (BEAKER) (test msam=557) 1.8 mg/dL 1.6-2.6 Specimen slightly hemolyzed BASIC METABOLIC [id number] 07:16:00* Test Item Value Reference Range Comments SODIUM (BEAKER) (test igtv=660) 139 meq/L 136-145 POTASSIUM (BEAKER) (test nudz=644) 4.0 meq/L 3.5-5.1 Specimen slightly hemolyzed CHLORIDE (BEAKER) (test yxvg=074) 109 meq/L 98-107 CO2 (BEAKER) (test pybu=808) 24 meq/L 22-29 BLOOD UREA NITROGEN (BEAKER) (test nsns=497) 3 mg/dL 7-21 CREATININE (BEAKER) (test eeif=352) 0.59 mg/dL 0.57-1.25 Specimen slightly hemolyzed GLUCOSE RANDOM (BEAKER) (test tbvi=206) 97 mg/dL 70-105 CALCIUM (BEAKER) (test lpep=158) 8.6 mg/dL 8.4-10.2 EGFR (BEAKER) (test gueu=9775) 141 mL/min/1.73 sq m ESTIMATED GFR IS NOT ACCURATE CREATININE CLEARANCE IN PREDICTING GLOMERULAR FILTRATION RATE. ESTIMATED GFR IS NOT APPLICABLE FOR DIALYSIS PATIENTS. CBC (HEMOGRAM ONLY)2018-03-08 06:55:00* Test Item Value Reference Range Comments WHITE BLOOD CELL COUNT (BEAKER) (test qfyp=102) 8.7 K/ L 3.5-10.5 RED BLOOD CELL COUNT (BEAKER) (test suov=900) 3.05 M/ L 3.93-5.22 HEMOGLOBIN (BEAKER) (test neba=527) 8.7 GM/DL 11.2-15.7 HEMATOCRIT (BEAKER) (test fudl=996) 27.4 % 34.1-44.9 MEAN CORPUSCULAR VOLUME (BEAKER) (test pvzy=257) 89.8 fL 79.4-94.8 MEAN CORPUSCULAR HEMOGLOBIN (BEAKER) (test mzny=095) 28.5 pg 25.6-32.2 MEAN CORPUSCULAR HEMOGLOBIN CONC (BEAKER) (test tfrh=801) 31.8 GM/DL 32.2-35.5 RED CELL DISTRIBUTION WIDTH (BEAKER) (test qzfp=482) 21.2 % 11.7-14.4 PLATELET COUNT (BEAKER) (test fafp=987) 258 K/CU MM 150-450 MEAN PLATELET VOLUME (BEAKER) (test nkpt=430) 10.2 fL 9.4-12.3 NUCLEATED RED BLOOD CELLS (BEAKER) (test xysf=864) 0 /100 WBC 0-0 CBC (HEMOGRAM ONLY)2018-03-07 11:39:00* Test Item Value Reference Range Comments WHITE BLOOD CELL COUNT (BEAKER) (test rkrb=622) 9.5 K/ L 3.5-10.5 RED BLOOD CELL COUNT (BEAKER) (test hpdz=635) 3.05 M/ L 3.93-5.22 HEMOGLOBIN (BEAKER) (test qwaa=817) 8.5 GM/DL 11.2-15.7 HEMATOCRIT (BEAKER) (test ocvm=052) 27.3 % 34.1-44.9 MEAN CORPUSCULAR VOLUME (BEAKER) (test fqcj=218) 89.5 fL 79.4-94.8 MEAN CORPUSCULAR HEMOGLOBIN (BEAKER) (test scmj=356) 27.9 pg 25.6-32.2 MEAN CORPUSCULAR HEMOGLOBIN CONC (BEAKER) (test gmxz=988) 31.1 GM/DL 32.2-35.5 RED CELL DISTRIBUTION WIDTH (BEAKER) (test inxg=799) 21.2 % 11.7-14.4 PLATELET COUNT (BEAKER) (test wvgj=036) 215 K/CU MM 150-450 MEAN PLATELET VOLUME (BEAKER) (test iekn=693) 9.5 fL 9.4-12.3 NUCLEATED RED BLOOD CELLS (BEAKER) (test zbly=960) 0 /100 WBC 0-0 [id number] 06:55:00* Test Item Value Reference Range Comments MAGNESIUM (BEAKER) (test jati=977) 1.7 mg/dL 1.6-2.6 BASIC METABOLIC [id number] 06:55:00* Test Item Value Reference Range Comments SODIUM (BEAKER) (test arct=208) 137 meq/L 136-145 POTASSIUM (BEAKER) (test epay=013) 3.7 meq/L 3.5-5.1 CHLORIDE (BEAKER) (test ltmb=414) 106 meq/L 98-107 CO2 (BEAKER) (test zxmu=223) 25 meq/L 22-29 BLOOD UREA NITROGEN (BEAKER) (test ouvd=739) 6 mg/dL 7-21 CREATININE (BEAKER) (test wznm=697) 0.62 mg/dL 0.57-1.25 GLUCOSE RANDOM (BEAKER) (test rhhm=890) 80 mg/dL 70-105 CALCIUM (BEAKER) (test ptry=787) 8.0 mg/dL 8.4-10.2 EGFR (BEAKER) (test hyqj=8318) 134 mL/min/1.73 sq m ESTIMATED GFR IS NOT ACCURATE CREATININE CLEARANCE IN PREDICTING GLOMERULAR FILTRATION RATE. ESTIMATED GFR IS NOT APPLICABLE FOR DIALYSIS PATIENTS. LEGIONELLA ANTIGEN, [id number] 21:43:00* Test Item Value Reference Range Comments L. PNEUMOPHILA SEROGP 1 UR AG (BEAKER) (test tehy=8418) Negative - see comment Negative for L. pneumophila serogroup 1 antigen, suggesting no recent or current infection with this serogroup. Legionellosis cannot be ruled out since other serogroups and species may cause disease. STREP PNEUMONIAE [id number] 21:42:00* Test Item Value Reference Range Comments STREP PNEUMONIAE ANTIGEN (BEAKER) (test dxmi=6179) Presumptive negative for pneumococcal pneumonia - see comment Presumptive negative for pneumococcal pneumonia - see commen Presumptive negative for pneumococcal pneumonia, suggesting no current or recent pneumococcal infection. Infection due to S. pneumoniae cannot be ruled out since the antigen present in the sample may be below the detection limit of the test. [id number] 07:01:00* Test Item Value Reference Range Comments FERRITIN (BEAKER) (test htal=242) 849 ng/mL 5-275 IRON, TIBC, % SAT. (WITHOUT FERRITIN)2018-03-06 06:54:00* Test Item Value Reference Range Comments IRON (BEAKER) (test ujdo=395) 30 ug/dL 40-160 TOTAL IRON BINDING CAPACITY (BEAKER) (test fexo=677) 176 ug/dL 250-450 IRON % SATURATION (2) (BEAKER) (test xrcb=6811) 17 % 20-55 [id number] 06:51:00* Test Item Value Reference Range Comments MAGNESIUM (BEAKER) (test fgii=324) 1.8 mg/dL 1.6-2.6 BASIC METABOLIC [id number] 06:51:00* Test Item Value Reference Range Comments SODIUM (BEAKER) (test mnnw=120) 138 meq/L 136-145 POTASSIUM (BEAKER) (test iygf=427) 3.7 meq/L 3.5-5.1 CHLORIDE (BEAKER) (test eghl=443) 109 meq/L 98-107 CO2 (BEAKER) (test zyat=276) 23 meq/L 22-29 BLOOD UREA NITROGEN (BEAKER) (test fzmj=619) 4 mg/dL 7-21 CREATININE (BEAKER) (test xxpq=212) 0.63 mg/dL 0.57-1.25 GLUCOSE RANDOM (BEAKER) (test pdoy=377) 98 mg/dL 70-105 CALCIUM (BEAKER) (test owzy=107) 8.1 mg/dL 8.4-10.2 EGFR (BEAKER) (test pmad=3549) 131 mL/min/1.73 sq m ESTIMATED GFR IS NOT ACCURATE CREATININE CLEARANCE IN PREDICTING GLOMERULAR FILTRATION RATE. ESTIMATED GFR IS NOT APPLICABLE FOR DIALYSIS PATIENTS. HEPATIC FUNCTION [id number] 06:51:00* Test Item Value Reference Range Comments TOTAL PROTEIN (BEAKER) (test mtqu=803) 6.4 gm/dL 6.0-8.3 ALBUMIN (BEAKER) (test tvcm=7426) 3.0 g/dL 3.5-5.0 BILIRUBIN TOTAL (BEAKER) (test qwbe=307) 1.5 mg/dL 0.2-1.2 BILIRUBIN DIRECT (BEAKER) (test euxn=931) 0.8 mg/dL 0.1-0.5 ALKALINE PHOSPHATASE (BEAKER) (test luim=000) 72 U/L 40-150 AST (SGOT) (BEAKER) (test fwak=305) 26 U/L 5-34 ALT (SGPT) (BEAKER) (test cjdw=608) 13 U/L 6-55 CBC W/PLT COUNT & AUTO [id number] 06:29:00* Test Item Value Reference Range Comments WHITE BLOOD CELL COUNT (BEAKER) (test hybb=414) 8.3 K/ L 3.5-10.5 RED BLOOD CELL COUNT (BEAKER) (test yvcl=377) 2.31 M/ L 3.93-5.22 HEMOGLOBIN (BEAKER) (test fmas=633) 6.5 GM/DL 11.2-15.7 HEMATOCRIT (BEAKER) (test gtnj=396) 21.1 % 34.1-44.9 MEAN CORPUSCULAR VOLUME (BEAKER) (test cyxg=971) 91.3 fL 79.4-94.8 MEAN CORPUSCULAR HEMOGLOBIN (BEAKER) (test ngxj=869) 28.1 pg 25.6-32.2 MEAN CORPUSCULAR HEMOGLOBIN CONC (BEAKER) (test jzcv=852) 30.8 GM/DL 32.2-35.5 RED CELL DISTRIBUTION WIDTH (BEAKER) (test rrol=775) 24.9 % 11.7-14.4 PLATELET COUNT (BEAKER) (test byjt=015) 217 K/CU MM 150-450 MEAN PLATELET VOLUME (BEAKER) (test hnde=602) 9.7 fL 9.4-12.3 NUCLEATED RED BLOOD CELLS (BEAKER) (test vlcl=147) 0 /100 WBC 0-0 NEUTROPHILS RELATIVE PERCENT (BEAKER) (test gvyv=019) 57 % LYMPHOCYTES RELATIVE PERCENT (BEAKER) (test ribx=588) 36 % MONOCYTES RELATIVE PERCENT (BEAKER) (test xkox=500) 6 % EOSINOPHILS RELATIVE PERCENT (BEAKER) (test twph=098) 1 % BASOPHILS RELATIVE PERCENT (BEAKER) (test mqak=167) 1 % NEUTROPHILS ABSOLUTE COUNT (BEAKER) (test wgnr=416) 4.70 K/ L 1.56-6.13 LYMPHOCYTES ABSOLUTE COUNT (BEAKER) (test mkvm=156) 2.93 K/ L 1.18-3.74 MONOCYTES ABSOLUTE COUNT (BEAKER) (test qbvb=832) 0.45 K/ L 0.24-0.36 EOSINOPHILS ABSOLUTE COUNT (BEAKER) (test felz=660) 0.08 K/ L 0.04-0.36 BASOPHILS ABSOLUTE COUNT (BEAKER) (test toir=130) 0.04 K/ L 0.01-0.08 IMMATURE GRANULOCYTES-RELATIVE PERCENT (BEAKER) (test zvae=9819) 1 % 0-1 RETICULOCYTE [id number] 06:29:00* Test Item Value Reference Range Comments RETICULOCYTE COUNT PCT (BEAKER) (test stdr=090) 15.9 % 0.5-1.7 URINALYSIS W/ REFLEX URINE [id number] 07:23:00* Test Item Value Reference Range Comments COLOR (BEAKER) (test bplf=229) Light Yellow CLARITY (BEAKER) (test jsyv=256) Clear SPECIFIC GRAVITY UA (BEAKER) (test chkx=728) 1.003 1.001-1.035 PH UA (BEAKER) (test kfqc=232) 6.5 5.0-8.0 PROTEIN UA (BEAKER) (test bpwr=530) Negative Negative GLUCOSE UA (BEAKER) (test saex=376) Negative Negative KETONES UA (BEAKER) (test xntz=477) Negative Negative BILIRUBIN UA (BEAKER) (test eaqn=528) Negative Negative BLOOD UA (BEAKER) (test kkhm=253) Large Negative NITRITE UA (BEAKER) (test okyh=830) Negative Negative LEUKOCYTE ESTERASE UA (BEAKER) (test tydc=863) Small Negative UROBILINOGEN UA (BEAKER) (test ptxb=830) 0.2 mg/dL 0.2-1.0 RBC UA (BEAKER) (test cbmd=051) 2 /HPF WBC UA (BEAKER) (test fnod=004) 14 /HPF BACTERIA (BEAKER) (test vojj=177) Occasional MUCUS (BEAKER) (test mqks=6777) Rare SQUAMOUS EPITHELIAL (BEAKER) (test uyiz=629) < /HPF SOURCE(BEAKER) (test inlj=9831) CT, CHEST, WITHOUT [id number] 06:46:00Reason for exam:->SICKLE CELL PAIN CRISISIs the patient ?->NoWhat is the patient's sedation requirement?-> No SedationFINAL REPORT Chest CT without contrast CLINICAL HISTORY: Sickle cell pain crisis. Chest pain. TECHNIQUE: Contiguous axial images of the chest without contrast. This exam was performed according to the departmental dose optimization program which includes automated exposure control, adjustment of the mA and/or kV according to the patient size, and/or use of an iterative reconstruction technique. COMPARISON: None FINDINGS:Limited examination secondary to expiratory phase and motion artifact. Minimal right lateral lower lobe dependent atelectasis. Mild peribronchial vascular groundglass opacities within the right upper and middle lobe. Multiple nodular densities within the right lower lobe.No suspicious pulmonary nodules. There are no pleural [...] discrete nodules meeting size criteria for additional evaluation.Right chest wall Port-A-Cath with tip terminating in the cavoatrial junction.No aggressive osseous lesions or acute fractures. Visualized abdomen: Partially evaluated splenomegaly . Cholelithiasis. IMPRESSION: Groundglass nodular opacities within the right upper, middle and lower lobes may represent atypical infection or sequela of acute chest syndrome. Mild cardiomegaly. Mild splenomegaly. Cholelithiasis. Signed: Alondra Yan Verified Date/Time: 06:46:33 Reading Location: [address] Transitional Reading Room Elec tronically signed by: ALONDRA YAN MD on 03/05/2018 06:46 AM RETICULOCYTE [id number] 04:58:00* Test Item Value Reference Range Comments RETICULOCYTE COUNT PCT (DEANNA) (test oavw=497) 18.9 % 0.5-1.7 POCT-LACTIC ACID, [id number] 04:10:00* Test Item Value Reference Range Comments POC-LACTIC ACID, VENOUS (DEANNA) (test lrwe=2182) 1.2 mmol/L 0.9-1.7 TESTED AT [facility] [address] [facility] [address] SCREEN, [id number] 03:59:00* Test Item Value Reference Range Comments TEST URINE (BEAKER) (test xhve=100) Negative CREATINE KINASE (CK), TOTAL AND [id number] 03:40:00* Test Item Value Reference Range Comments CREATINE KINASE TOTAL (BEAKER) (test uckb=019) 38 U/L 29-200 CREATINE KINASE-MB (BEAKER) (test nnqz=219) 0.2 ng/mL 0.0-6.6 CREATINE KINASE-MB INDEX (BEAKER) (test ehch=820) 0.5 % CK-MB Reference Range:<6.7 Normal6.7-10.0 Borderline>10.0 Abnormal TROPONIN [id number] 03:40:00* Test Item Value Reference Range Comments TROPONIN I (BEAKER) (test dvsb=050) < ng/mL 0.00-0.03 Troponin I (TnI) levels must be interpreted in the context of the presenting sym ptoms and the clinical findings. Elevated TnI levels indicate myocardial damage, but are not specific for ischemic heart disease. Elevated TnI levels are seen in patients with other cardiac conditions (including myocarditis and congestive h eart failure), and slight TnI elevations occur in patients with other conditions , including sepsis, renal failure, acidosis, acute neurological disease, and per sistent tachyarrhythmia.B-TYPE NATRIURETIC FACTOR (BNP)2018-03-05 03:40:00* Test Item Value Reference Range Comments B-TYPE NATRIURETIC PEPTIDE (BEAKER) (test npsp=159) 173 pg/mL 0-100 [id number] 03:34:00* Test Item Value Reference Range Comments MAGNESIUM (BEAKER) (test arpj=933) 1.8 mg/dL 1.6-2.6 BASIC METABOLIC [id number] 03:34:00* Test Item Value Reference Range Comments SODIUM (BEAKER) (test lfch=922) 136 meq/L 136-145 POTASSIUM (BEAKER) (test ehzh=283) 3.9 meq/L 3.5-5.1 CHLORIDE (BEAKER) (test eqnv=187) 106 meq/L 98-107 CO2 (BEAKER) (test gdto=805) 22 meq/L 22-29 BLOOD UREA NITROGEN (BEAKER) (test oxuz=415) 4 mg/dL 7-21 CREATININE (BEAKER) (test ejnv=056) 0.69 mg/dL 0.57-1.25 GLUCOSE RANDOM (BEAKER) (test mrjt=649) 95 mg/dL 70-105 CALCIUM (BEAKER) (test dngh=621) 8.3 mg/dL 8.4-10.2 EGFR (BEAKER) (test msmq=7917) 118 mL/min/1.73 sq m ESTIMATED GFR IS NOT ACCURATE CREATININE CLEARANCE IN PREDICTING GLOMERULAR FILTRATION RATE. ESTIMATED GFR IS NOT APPLICABLE FOR DIALYSIS PATIENTS. CBC W/PLT COUNT & AUTO [id number] 03:16:00* Test Item Value Reference Range Comments WHITE BLOOD CELL COUNT (BEAKER) (test coqv=539) 11.3 K/ L 3.5-10.5 RED BLOOD CELL COUNT (BEAKER) (test lhff=644) 2.48 M/ L 3.93-5.22 HEMOGLOBIN (BEAKER) (test fsat=499) 7.0 GM/DL 11.2-15.7 HEMATOCRIT (BEAKER) (test fyxf=931) 22.2 % 34.1-44.9 MEAN CORPUSCULAR VOLUME (BEAKER) (test cdlj=629) 89.5 fL 79.4-94.8 MEAN CORPUSCULAR HEMOGLOBIN (BEAKER) (test jjfk=763) 28.2 pg 25.6-32.2 MEAN CORPUSCULAR HEMOGLOBIN CONC (BEAKER) (test zzrs=119) 31.5 GM/DL 32.2-35.5 RED CELL DISTRIBUTION WIDTH (BEAKER) (test dfti=175) 26.1 % 11.7-14.4 PLATELET COUNT (BEAKER) (test qffh=151) 289 K/CU MM 150-450 MEAN PLATELET VOLUME (BEAKER) (test qaay=183) 9.7 fL 9.4-12.3 NUCLEATED RED BLOOD CELLS (BEAKER) (test egfc=850) 6 /100 WBC 0-0 NEUTROPHILS RELATIVE PERCENT (BEAKER) (test hhiq=668) 73 % LYMPHOCYTES RELATIVE PERCENT (BEAKER) (test ulsg=113) 22 % MONOCYTES RELATIVE PERCENT (BEAKER) (test lwrl=912) 4 % EOSINOPHILS RELATIVE PERCENT (BEAKER) (test fifb=169) 0 % BASOPHILS RELATIVE PERCENT (BEAKER) (test hsac=792) 0 % NEUTROPHILS ABSOLUTE COUNT (BEAKER) (test kcll=990) 8.18 K/ L 1.56-6.13 LYMPHOCYTES ABSOLUTE COUNT (BEAKER) (test dasj=282) 2.42 K/ L 1.18-3.74 MONOCYTES ABSOLUTE COUNT (BEAKER) (test scny=770) 0.48 K/ L 0.24-0.36 EOSINOPHILS ABSOLUTE COUNT (BEAKER) (test nzvv=720) 0.03 K/ L 0.04-0.36 BASOPHILS ABSOLUTE COUNT (BEAKER) (test hjcl=115) 0.05 K/ L 0.01-0.08 IMMATURE GRANULOCYTES-RELATIVE PERCENT (BEAKER) (test evlj=3927) 1 % 0-1 [id number] 03:12:00* Test Item Value Reference Range Comments PROTIME (BEAKER) (test lpgu=697) 15.0 seconds 11.7-14.7 INR (BEAKER) (test esti=715) 1.2 <=5.9 PARTIAL THROMBOPLASTIN TIME (BEAKER) (test auii=037) 117.0 seconds 22.5-36.0 RECOMMENDED COUMADIN/WARFARIN INR THERAPY RANGESSTANDARD DOSE: 2.0 - 3.0 Inclu fern: PROPHYLAXIS for venous thrombosis, systemic embolization; TREATMENT for dexter ous thrombosis and/or pulmonary embolus.HIGH RISK: Target INR is 2.5-3.5 for pat ients with mechanical heart valves.RAD, CHEST, 1 VIEW, NON [id number] 00:22:00Reason for exam:->SICKLE CELL PAIN CRISISIs the patient ?-> UnknownFINAL REPORT History: Chest pain, history of sickle cell anemia. Comparison: 01/03/2018 Findings: A single view of the chest is submitted. The cardiomediastinal contours are unremarkable. There is no focal consolidation, pneumothorax, large pleural effusion or evidence of overt pulmonary edema. A right IJ chest port is in stable position. There is no acute bony abnormality. Impression: No acute abnormality. Signed: Bobby Lutzeport Verified Date/Time: 03/05/2018 00:22:47 Reading Location: [address] Reading Room C METABOLIC [id number] 16:35:00* Test Item Value Reference Range Comments SODIUM (BEAKER) (test uquf=000) 138 meq/L 136-145 POTASSIUM (BEAKER) (test jgpk=997) 3.0 meq/L 3.5-5.1 CHLORIDE (BEAKER) (test foij=310) 107 meq/L 98-107 CO2 (BEAKER) (test xeut=657) 19 meq/L 22-29 BLOOD UREA NITROGEN (BEAKER) (test bnna=198) 8 mg/dL 7-21 CREATININE (BEAKER) (test etkx=449) 0.65 mg/dL 0.57-1.25 GLUCOSE RANDOM (BEAKER) (test rdor=209) 82 mg/dL 70-105 CALCIUM (BEAKER) (test bajs=020) 9.0 mg/dL 8.4-10.2 EGFR (BEAKER) (test lofn=0110) 126 mL/min/1.73 sq m ESTIMATED GFR IS NOT ACCURATE CREATININE CLEARANCE IN PREDICTING GLOMERULAR FILTRATION RATE. ESTIMATED GFR IS NOT APPLICABLE FOR DIALYSIS PATIENTS. C-REACTIVE [id number] 16:35:00* Test Item Value Reference Range Comments C-REACTIVE PROTEIN (BEAKER) (test pust=252) 1.28 mg/dL 0.00-0.50 CBC W/PLT COUNT & AUTO [id number] 16:30:00* Test Item Value Reference Range Comments WHITE BLOOD CELL COUNT (BEAKER) (test dhpt=865) 7.6 K/ L 3.5-10.5 RED BLOOD CELL COUNT (BEAKER) (test ddec=385) 3.67 M/ L 3.93-5.22 HEMOGLOBIN (BEAKER) (test ofpp=398) 9.8 GM/DL 11.2-15.7 HEMATOCRIT (BEAKER) (test rdkh=837) 30.2 % 34.1-44.9 MEAN CORPUSCULAR VOLUME (BEAKER) (test doie=052) 82.3 fL 79.4-94.8 MEAN CORPUSCULAR HEMOGLOBIN (BEAKER) (test srfk=006) 26.7 pg 25.6-32.2 MEAN CORPUSCULAR HEMOGLOBIN CONC (BEAKER) (test nyeq=117) 32.5 GM/DL 32.2-35.5 RED CELL DISTRIBUTION WIDTH (BEAKER) (test znep=509) 18.8 % 11.7-14.4 PLATELET COUNT (BEAKER) (test mdvt=103) 368 K/CU MM 150-450 MEAN PLATELET VOLUME (BEAKER) (test lyyp=829) 10.9 fL 9.4-12.3 NUCLEATED RED BLOOD CELLS (BEAKER) (test cicy=013) 0 /100 WBC 0-0 NEUTROPHILS RELATIVE PERCENT (BEAKER) (test kbbd=847) 45 % LYMPHOCYTES RELATIVE PERCENT (BEAKER) (test pmgv=092) 47 % MONOCYTES RELATIVE PERCENT (BEAKER) (test nxjc=933) 6 % EOSINOPHILS RELATIVE PERCENT (BEAKER) (test gpcq=946) 0 % BASOPHILS RELATIVE PERCENT (BEAKER) (test lxgq=153) 1 % NEUTROPHILS ABSOLUTE COUNT (BEAKER) (test pohi=868) 3.42 K/ L 1.56-6.13 LYMPHOCYTES ABSOLUTE COUNT (BEAKER) (test agwb=417) 3.62 K/ L 1.18-3.74 MONOCYTES ABSOLUTE COUNT (BEAKER) (test sgfg=761) 0.44 K/ L 0.24-0.36 EOSINOPHILS ABSOLUTE COUNT (BEAKER) (test pfsf=450) 0.02 K/ L 0.04-0.36 BASOPHILS ABSOLUTE COUNT (BEAKER) (test pzyv=435) 0.10 K/ L 0.01-0.08 IMMATURE GRANULOCYTES-RELATIVE PERCENT (BEAKER) (test arug=9502) 1 % 0-1 RETICULOCYTE [id number] 16:15:00* Test Item Value Reference Range Comments RETICULOCYTE COUNT PCT (BEAKER) (test fyoc=149) 2.0 % 0.5-1.7 BLOOD [id number] 06:00:00* Test Item Value Reference Range Comments CULTURE (BEAKER) (test baby=7831) No growth in 5 days BLOOD [id number] 06:00:00* Test Item Value Reference Range Comments CULTURE (BEAKER) (test hirf=0610) No growth in 5 days BASIC METABOLIC [id number] 07:11:00* Test Item Value Reference Range Comments SODIUM (BEAKER) (test fwjf=511) 138 meq/L 136-145 POTASSIUM (BEAKER) (test sioy=610) 3.8 meq/L 3.5-5.1 CHLORIDE (BEAKER) (test ropw=903) 105 meq/L 98-107 CO2 (BEAKER) (test ugby=039) 25 meq/L 22-29 BLOOD UREA NITROGEN (BEAKER) (test dkdr=648) 4 mg/dL 7-21 CREATININE (BEAKER) (test aldb=974) 0.64 mg/dL 0.57-1.25 GLUCOSE RANDOM (BEAKER) (test dtei=851) 91 mg/dL 70-105 CALCIUM (BEAKER) (test fctw=370) 8.6 mg/dL 8.4-10.2 EGFR (BEAKER) (test zcux=3455) 129 mL/min/1.73 sq m ESTIMATED GFR IS NOT ACCURATE CREATININE CLEARANCE IN PREDICTING GLOMERULAR FILTRATION RATE. ESTIMATED GFR IS NOT APPLICABLE FOR DIALYSIS PATIENTS. CBC W/PLT COUNT & AUTO [id number] 06:30:00* Test Item Value Reference Range Comments WHITE BLOOD CELL COUNT (BEAKER) (test yuqi=064) 8.7 K/ L 3.5-10.5 RED BLOOD CELL COUNT (BEAKER) (test fswn=907) 3.08 M/ L 3.93-5.22 HEMOGLOBIN (BEAKER) (test vlkk=970) 8.2 GM/DL 11.2-15.7 HEMATOCRIT (BEAKER) (test tlur=743) 26.1 % 34.1-44.9 MEAN CORPUSCULAR VOLUME (BEAKER) (test dsrv=345) 84.7 fL 79.4-94.8 MEAN CORPUSCULAR HEMOGLOBIN (BEAKER) (test vufa=063) 26.6 pg 25.6-32.2 MEAN CORPUSCULAR HEMOGLOBIN CONC (BEAKER) (test nare=167) 31.4 GM/DL 32.2-35.5 RED CELL DISTRIBUTION WIDTH (BEAKER) (test qcvg=965) 19.7 % 11.7-14.4 PLATELET COUNT (BEAKER) (test mqnf=583) 379 K/CU MM 150-450 MEAN PLATELET VOLUME (BEAKER) (test nevy=078) 9.6 fL 9.4-12.3 NUCLEATED RED BLOOD CELLS (BEAKER) (test ssmb=236) 0 /100 WBC 0-0 NEUTROPHILS RELATIVE PERCENT (BEAKER) (test dbfk=549) 40 % LYMPHOCYTES RELATIVE PERCENT (BEAKER) (test jaue=103) 46 % MONOCYTES RELATIVE PERCENT (BEAKER) (test pcwr=717) 9 % EOSINOPHILS RELATIVE PERCENT (BEAKER) (test ghte=063) 4 % BASOPHILS RELATIVE PERCENT (BEAKER) (test hzkq=555) 1 % NEUTROPHILS ABSOLUTE COUNT (BEAKER) (test xtmu=158) 3.45 K/ L 1.56-6.13 LYMPHOCYTES ABSOLUTE COUNT (BEAKER) (test nmca=663) 3.98 K/ L 1.18-3.74 MONOCYTES ABSOLUTE COUNT (BEAKER) (test vxyl=915) 0.77 K/ L 0.24-0.36 EOSINOPHILS ABSOLUTE COUNT (BEAKER) (test lwcq=869) 0.37 K/ L 0.04-0.36 BASOPHILS ABSOLUTE COUNT (BEAKER) (test fbof=808) 0.05 K/ L 0.01-0.08 IMMATURE GRANULOCYTES-RELATIVE PERCENT (BEAKER) (test wvcf=7634) 1 % 0-1 BASIC METABOLIC [id number] 06:57:00* Test Item Value Reference Range Comments SODIUM (BEAKER) (test nxll=900) 138 meq/L 136-145 POTASSIUM (BEAKER) (test kkgt=398) 3.7 meq/L 3.5-5.1 CHLORIDE (BEAKER) (test hcsa=057) 106 meq/L 98-107 CO2 (BEAKER) (test wyyl=730) 23 meq/L 22-29 BLOOD UREA NITROGEN (BEAKER) (test kcni=733) 4 mg/dL 7-21 CREATININE (BEAKER) (test wshr=445) 0.62 mg/dL 0.57-1.25 GLUCOSE RANDOM (BEAKER) (test dfjf=391) 111 mg/dL 70-105 CALCIUM (BEAKER) (test utzn=290) 7.6 mg/dL 8.4-10.2 EGFR (BEAKER) (test gchg=7792) 134 mL/min/1.73 sq m ESTIMATED GFR IS NOT ACCURATE CREATININE CLEARANCE IN PREDICTING GLOMERULAR FILTRATION RATE. ESTIMATED GFR IS NOT APPLICABLE FOR DIALYSIS PATIENTS. CBC W/PLT COUNT & AUTO [id number] 05:41:00* Test Item Value Reference Range Comments WHITE BLOOD CELL COUNT (BEAKER) (test fgvu=985) 8.6 K/ L 3.5-10.5 RED BLOOD CELL COUNT (BEAKER) (test uvby=396) 2.95 M/ L 3.93-5.22 HEMOGLOBIN (BEAKER) (test pcrf=658) 7.7 GM/DL 11.2-15.7 HEMATOCRIT (BEAKER) (test rnmo=849) 24.7 % 34.1-44.9 MEAN CORPUSCULAR VOLUME (BEAKER) (test ifop=034) 83.7 fL 79.4-94.8 MEAN CORPUSCULAR HEMOGLOBIN (BEAKER) (test reit=573) 26.1 pg 25.6-32.2 MEAN CORPUSCULAR HEMOGLOBIN CONC (BEAKER) (test klpm=362) 31.2 GM/DL 32.2-35.5 RED CELL DISTRIBUTION WIDTH (BEAKER) (test wqnv=311) 19.5 % 11.7-14.4 PLATELET COUNT (BEAKER) (test wjwl=305) 326 K/CU MM 150-450 MEAN PLATELET VOLUME (BEAKER) (test njwh=651) 10.0 fL 9.4-12.3 NUCLEATED RED BLOOD CELLS (BEAKER) (test aauu=663) 0 /100 WBC 0-0 NEUTROPHILS RELATIVE PERCENT (BEAKER) (test bqwz=100) 49 % LYMPHOCYTES RELATIVE PERCENT (BEAKER) (test wmgn=709) 38 % MONOCYTES RELATIVE PERCENT (BEAKER) (test kivp=156) 8 % EOSINOPHILS RELATIVE PERCENT (BEAKER) (test wtir=465) 4 % BASOPHILS RELATIVE PERCENT (BEAKER) (test pvfp=001) 1 % NEUTROPHILS ABSOLUTE COUNT (BEAKER) (test amqd=391) 4.18 K/ L 1.56-6.13 LYMPHOCYTES ABSOLUTE COUNT (BEAKER) (test sdto=771) 3.25 K/ L 1.18-3.74 MONOCYTES ABSOLUTE COUNT (BEAKER) (test ubym=411) 0.64 K/ L 0.24-0.36 EOSINOPHILS ABSOLUTE COUNT (BEAKER) (test uqdz=639) 0.34 K/ L 0.04-0.36 BASOPHILS ABSOLUTE COUNT (BEAKER) (test albp=274) 0.04 K/ L 0.01-0.08 IMMATURE GRANULOCYTES-RELATIVE PERCENT (BEAKER) (test gcsr=2047) 1 % 0-1 RAD, CHEST, 1 VIEW, NON [id number] 09:29:00Reason for exam:->fever of unspecific sourceShould this be performed at the bedside?->YesFINAL REPORT Chest, one view. HISTORY: Fever COMPARISON: 12/31/2017 IMPRESSION: No new focal consolidation. Mild interstitial edema. Unchanged mild enlargement of the cardiomediastinal silhouette. Trace left pleural effusion. No identifiable pneumothorax. No acute osseous abnormality. Signed: Amari Florez MDReport Verified Date/Time: 01/03/2018 09:29:29 Reading Location: [address] Ortho Consult Reading Room C METABOLIC [id number] 07:41:00* Test Item Value Reference Range Comments SODIUM (BEAKER) (test tpcy=334) 138 meq/L 136-145 POTASSIUM (BEAKER) (test vnzq=507) 4.3 meq/L 3.5-5.1 Specimen slightly hemolyzed CHLORIDE (BEAKER) (test cbjd=926) 107 meq/L 98-107 CO2 (BEAKER) (test vnjh=133) 22 meq/L 22-29 BLOOD UREA NITROGEN (BEAKER) (test lbdx=984) 4 mg/dL 7-21 CREATININE (BEAKER) (test kqae=056) 0.63 mg/dL 0.57-1.25 Specimen slightly hemolyzed GLUCOSE RANDOM (BEAKER) (test ktzc=947) 72 mg/dL 70-105 CALCIUM (BEAKER) (test rjtl=891) 8.6 mg/dL 8.4-10.2 EGFR (BEAKER) (test xdbf=7371) 131 mL/min/1.73 sq m ESTIMATED GFR IS NOT ACCURATE CREATININE CLEARANCE IN PREDICTING GLOMERULAR FILTRATION RATE. ESTIMATED GFR IS NOT APPLICABLE FOR DIALYSIS PATIENTS. CBC W/PLT COUNT & AUTO [id number] 07:13:00* Test Item Value Reference Range Comments WHITE BLOOD CELL COUNT (BEAKER) (test djjx=922) 11.4 K/ L 3.5-10.5 RED BLOOD CELL COUNT (BEAKER) (test ufny=491) 3.03 M/ L 3.93-5.22 HEMOGLOBIN (BEAKER) (test nusn=823) 8.0 GM/DL 11.2-15.7 HEMATOCRIT (BEAKER) (test vhtx=535) 26.3 % 34.1-44.9 MEAN CORPUSCULAR VOLUME (BEAKER) (test zsjh=596) 86.8 fL 79.4-94.8 MEAN CORPUSCULAR HEMOGLOBIN (BEAKER) (test abvi=031) 26.4 pg 25.6-32.2 MEAN CORPUSCULAR HEMOGLOBIN CONC (BEAKER) (test dgnd=493) 30.4 GM/DL 32.2-35.5 RED CELL DISTRIBUTION WIDTH (BEAKER) (test khbu=212) 20.2 % 11.7-14.4 PLATELET COUNT (BEAKER) (test soaa=684) 336 K/CU MM 150-450 MEAN PLATELET VOLUME (BEAKER) (test woad=319) 9.6 fL 9.4-12.3 NUCLEATED RED BLOOD CELLS (BEAKER) (test fzhr=634) 1 /100 WBC 0-0 NEUTROPHILS RELATIVE PERCENT (BEAKER) (test pwfw=543) 58 % LYMPHOCYTES RELATIVE PERCENT (BEAKER) (test yttj=763) 33 % MONOCYTES RELATIVE PERCENT (BEAKER) (test jfrx=402) 6 % EOSINOPHILS RELATIVE PERCENT (BEAKER) (test uyje=910) 2 % BASOPHILS RELATIVE PERCENT (BEAKER) (test sipm=479) 0 % NEUTROPHILS ABSOLUTE COUNT (BEAKER) (test yfqw=061) 6.59 K/ L 1.56-6.13 LYMPHOCYTES ABSOLUTE COUNT (BEAKER) (test ihsb=489) 3.72 K/ L 1.18-3.74 MONOCYTES ABSOLUTE COUNT (BEAKER) (test nakm=215) 0.69 K/ L 0.24-0.36 EOSINOPHILS ABSOLUTE COUNT (BEAKER) (test idam=934) 0.27 K/ L 0.04-0.36 BASOPHILS ABSOLUTE COUNT (BEAKER) (test qjul=371) 0.03 K/ L 0.01-0.08 IMMATURE GRANULOCYTES-RELATIVE PERCENT (BEAKER) (test mjeu=1909) 1 % 0-1 URINALYSIS W/ REFLEX URINE [id number] 03:08:00* Test Item Value Reference Range Comments COLOR (BEAKER) (test vxox=340) Yellow CLARITY (BEAKER) (test jpvk=155) Clear SPECIFIC GRAVITY UA (BEAKER) (test teyr=317) 1.006 1.001-1.035 PH UA (BEAKER) (test qkjm=003) 7.5 5.0-8.0 PROTEIN UA (BEAKER) (test sgct=207) Negative Negative GLUCOSE UA (BEAKER) (test zyfw=566) Negative Negative KETONES UA (BEAKER) (test uylm=725) Negative Negative BILIRUBIN UA (BEAKER) (test fcyu=813) Negative Negative BLOOD UA (BEAKER) (test vloe=606) Trace Negative NITRITE UA (BEAKER) (test rnhl=506) Negative Negative LEUKOCYTE ESTERASE UA (BEAKER) (test gqvr=762) Small Negative UROBILINOGEN UA (BEAKER) (test ijoe=708) 8.0 mg/dL 0.2-1.0 RBC UA (BEAKER) (test smmy=754) 1 /HPF WBC UA (BEAKER) (test tnaw=562) 6 /HPF BACTERIA (BEAKER) (test ylwr=613) Rare SQUAMOUS EPITHELIAL (BEAKER) (test lwoq=051) < /HPF SOURCE(BEAKER) (test cfgl=1228) BASIC METABOLIC [id number] 04:51:00* Test Item Value Reference Range Comments SODIUM (BEAKER) (test tjei=633) 136 meq/L 136-145 POTASSIUM (BEAKER) (test cwgo=180) 3.5 meq/L 3.5-5.1 CHLORIDE (BEAKER) (test ukna=307) 108 meq/L 98-107 CO2 (BEAKER) (test wyum=523) 23 meq/L 22-29 BLOOD UREA NITROGEN (BEAKER) (test twsd=817) 5 mg/dL 7-21 CREATININE (BEAKER) (test vysk=785) 0.60 mg/dL 0.57-1.25 GLUCOSE RANDOM (BEAKER) (test fgsv=316) 83 mg/dL 70-105 CALCIUM (BEAKER) (test uyuf=338) 7.9 mg/dL 8.4-10.2 EGFR (BEAKER) (test fqjx=1938) 139 mL/min/1.73 sq m ESTIMATED GFR IS NOT ACCURATE CREATININE CLEARANCE IN PREDICTING GLOMERULAR FILTRATION RATE. ESTIMATED GFR IS NOT APPLICABLE FOR DIALYSIS PATIENTS. CBC W/PLT COUNT & AUTO [id number] 04:28:00* Test Item Value Reference Range Comments WHITE BLOOD CELL COUNT (BEAKER) (test wprh=574) 8.9 K/ L 3.5-10.5 RED BLOOD CELL COUNT (BEAKER) (test vzax=160) 2.78 M/ L 3.93-5.22 HEMOGLOBIN (BEAKER) (test ftrl=521) 7.5 GM/DL 11.2-15.7 HEMATOCRIT (BEAKER) (test ovom=326) 23.7 % 34.1-44.9 MEAN CORPUSCULAR VOLUME (BEAKER) (test zwua=238) 85.3 fL 79.4-94.8 MEAN CORPUSCULAR HEMOGLOBIN (BEAKER) (test lmmc=071) 27.0 pg 25.6-32.2 MEAN CORPUSCULAR HEMOGLOBIN CONC (BEAKER) (test jnhl=804) 31.6 GM/DL 32.2-35.5 RED CELL DISTRIBUTION WIDTH (BEAKER) (test llla=801) 20.1 % 11.7-14.4 PLATELET COUNT (BEAKER) (test acum=636) 260 K/CU MM 150-450 MEAN PLATELET VOLUME (BEAKER) (test bjaq=137) 9.6 fL 9.4-12.3 NUCLEATED RED BLOOD CELLS (BEAKER) (test vuxk=421) 1 /100 WBC 0-0 NEUTROPHILS RELATIVE PERCENT (BEAKER) (test rpru=762) 57 % LYMPHOCYTES RELATIVE PERCENT (BEAKER) (test stvu=758) 32 % MONOCYTES RELATIVE PERCENT (BEAKER) (test cekh=736) 6 % EOSINOPHILS RELATIVE PERCENT (BEAKER) (test zjxz=807) 3 % BASOPHILS RELATIVE PERCENT (BEAKER) (test gjnf=807) 0 % NEUTROPHILS ABSOLUTE COUNT (BEAKER) (test eyqg=193) 5.08 K/ L 1.56-6.13 LYMPHOCYTES ABSOLUTE COUNT (BEAKER) (test hpju=775) 2.87 K/ L 1.18-3.74 MONOCYTES ABSOLUTE COUNT (BEAKER) (test vkut=780) 0.49 K/ L 0.24-0.36 EOSINOPHILS ABSOLUTE COUNT (BEAKER) (test wzlp=563) 0.30 K/ L 0.04-0.36 BASOPHILS ABSOLUTE COUNT (BEAKER) (test wrti=125) 0.02 K/ L 0.01-0.08 IMMATURE GRANULOCYTES-RELATIVE PERCENT (BEAKER) (test odrd=2169) 1 % 0-1 BASIC METABOLIC [id number] 03:53:00* Test Item Value Reference Range Comments SODIUM (BEAKER) (test hyli=710) 138 meq/L 136-145 POTASSIUM (BEAKER) (test ewed=563) 3.7 meq/L 3.5-5.1 CHLORIDE (BEAKER) (test izcy=445) 110 meq/L 98-107 CO2 (BEAKER) (test moco=405) 22 meq/L 22-29 BLOOD UREA NITROGEN (BEAKER) (test zuma=199) 5 mg/dL 7-21 CREATININE (BEAKER) (test zody=168) 0.61 mg/dL 0.57-1.25 GLUCOSE RANDOM (BEAKER) (test kgyx=279) 86 mg/dL 70-105 CALCIUM (BEAKER) (test rdcy=136) 7.8 mg/dL 8.4-10.2 EGFR (BEAKER) (test lvfs=0275) 136 mL/min/1.73 sq m ESTIMATED GFR IS NOT ACCURATE CREATININE CLEARANCE IN PREDICTING GLOMERULAR FILTRATION RATE. ESTIMATED GFR IS NOT APPLICABLE FOR DIALYSIS PATIENTS. Specimen slightly ictericHEPATIC FUNCTION [id number] 03:42:00* Test Item Value Reference Range Comments TOTAL PROTEIN (BEAKER) (test aoie=102) 6.4 gm/dL 6.0-8.3 ALBUMIN (BEAKER) (test cffx=1561) 3.0 g/dL 3.5-5.0 BILIRUBIN TOTAL (BEAKER) (test zakx=852) 3.4 mg/dL 0.2-1.2 BILIRUBIN DIRECT (BEAKER) (test sjmu=764) 1.9 mg/dL 0.1-0.5 ALKALINE PHOSPHATASE (BEAKER) (test mdam=638) 79 U/L 40-150 AST (SGOT) (BEAKER) (test pyhc=617) 38 U/L 5-34 ALT (SGPT) (BEAKER) (test vble=363) 26 U/L 6-55 Specimen slightly ictericRETICULOCYTE [id number] 03:37:00* Test Item Value Reference Range Comments RETICULOCYTE COUNT PCT (BEAKER) (test kapw=526) 9.9 % 0.5-1.7 CBC W/PLT COUNT & AUTO [id number] 03:37:00* Test Item Value Reference Range Comments WHITE BLOOD CELL COUNT (BEAKER) (test yaoj=168) 7.3 K/ L 3.5-10.5 RED BLOOD CELL COUNT (BEAKER) (test tkim=562) 2.27 M/ L 3.93-5.22 HEMOGLOBIN (BEAKER) (test izvl=990) 6.2 GM/DL 11.2-15.7 HEMATOCRIT (BEAKER) (test cczs=906) 19.7 % 34.1-44.9 MEAN CORPUSCULAR VOLUME (BEAKER) (test odkx=678) 86.8 fL 79.4-94.8 MEAN CORPUSCULAR HEMOGLOBIN (BEAKER) (test rosv=174) 27.3 pg 25.6-32.2 MEAN CORPUSCULAR HEMOGLOBIN CONC (BEAKER) (test vipe=096) 31.5 GM/DL 32.2-35.5 RED CELL DISTRIBUTION WIDTH (BEAKER) (test uoxl=958) 20.6 % 11.7-14.4 PLATELET COUNT (BEAKER) (test izyx=147) 269 K/CU MM 150-450 MEAN PLATELET VOLUME (BEAKER) (test alcr=028) 9.5 fL 9.4-12.3 NUCLEATED RED BLOOD CELLS (BEAKER) (test wksy=278) 0 /100 WBC 0-0 NEUTROPHILS RELATIVE PERCENT (BEAKER) (test aqgq=847) 61 % LYMPHOCYTES RELATIVE PERCENT (BEAKER) (test krln=847) 30 % MONOCYTES RELATIVE PERCENT (BEAKER) (test febg=095) 4 % EOSINOPHILS RELATIVE PERCENT (BEAKER) (test umqt=719) 3 % BASOPHILS RELATIVE PERCENT (BEAKER) (test hfch=196) 0 % NEUTROPHILS ABSOLUTE COUNT (BEAKER) (test pyfp=395) 4.43 K/ L 1.56-6.13 LYMPHOCYTES ABSOLUTE COUNT (BEAKER) (test rfdh=032) 2.20 K/ L 1.18-3.74 MONOCYTES ABSOLUTE COUNT (BEAKER) (test fgnh=374) 0.32 K/ L 0.24-0.36 EOSINOPHILS ABSOLUTE COUNT (BEAKER) (test celg=316) 0.20 K/ L 0.04-0.36 BASOPHILS ABSOLUTE COUNT (BEAKER) (test epqt=482) 0.02 K/ L 0.01-0.08 IMMATURE GRANULOCYTES-RELATIVE PERCENT (BEAKER) (test tnnr=8532) 1 % 0-1 RAD, CHEST, 1 VIEW, NON [id number] 19:45:00Reason for exam:->CHEST PAINReason for exam:->BACK PAINReason for exam:->SICKLE CELL PAIN CRISISIs the patient ?->NoFINAL REPORT INDICATION: CHEST PAINBACK PAINSICKLE CELL PAIN CRISIS COMPARISON: Marked first 2017 TECHNIQUE: Single frontal view of the chest. IMPRESSION: Lungs and pleura: Clear lungs. No effusion.Heart and mediastinum: Stable prominent cardiac size. Unremarkable mediastinal contours.Osseous structures: No acute abnormality.Other: Stable position of port catheter. The port has been accessed. Signed: JR Reyna Robert MDReport Verified Date/Time: 12/31/2017 19:45:21 Reading Location: [address] Reading Room CULOCYTE [id number] 19:15:00* Test Item Value Reference Range Comments RETICULOCYTE COUNT PCT (BEAKER) (test sddp=657) 10.3 % 0.5-1.7 [id number] 18:50:00* Test Item Value Reference Range Comments PROTIME (BEAKER) (test qgdc=202) 15.0 seconds 11.7-14.7 INR (BEAKER) (test fdxa=832) 1.2 <=5.9 PARTIAL THROMBOPLASTIN TIME (BEAKER) (test visy=942) 43.7 seconds 22.5-36.0 RECOMMENDED COUMADIN/WARFARIN INR THERAPY RANGESSTANDARD DOSE: 2.0 - 3.0 Inclu fern: PROPHYLAXIS for venous thrombosis, systemic embolization; TREATMENT for dexter ous thrombosis and/or pulmonary embolus.HIGH RISK: Target INR is 2.5-3.5 for pat ients with mechanical heart valves.PT/[id number] 18:16:00* Test Item Value Reference Range Comments PROTIME (BEAKER) (test ppjv=830) 15.3 seconds 11.7-14.7 INR (BEAKER) (test caat=945) 1.2 <=5.9 PARTIAL THROMBOPLASTIN TIME (BEAKER) (test mymp=554) > seconds 22.5-36.0 RECOMMENDED COUMADIN/WARFARIN INR THERAPY RANGESSTANDARD DOSE: 2.0 - 3.0 Inclu fern: PROPHYLAXIS for venous thrombosis, systemic embolization; TREATMENT for dexter ous thrombosis and/or pulmonary embolus.HIGH RISK: Target INR is 2.5-3.5 for pat ients with mechanical heart valves.CBC W/PLT COUNT & AUTO [id number] 18:16:00* Test Item Value Reference Range Comments WHITE BLOOD CELL COUNT (BEAKER) (test kagb=191) 8.2 K/ L 3.5-10.5 RED BLOOD CELL COUNT (BEAKER) (test tqeu=657) 2.58 M/ L 3.93-5.22 HEMOGLOBIN (BEAKER) (test twsq=749) 7.1 GM/DL 11.2-15.7 HEMATOCRIT (BEAKER) (test hmdu=935) 22.2 % 34.1-44.9 MEAN CORPUSCULAR VOLUME (BEAKER) (test sthk=222) 86.0 fL 79.4-94.8 MEAN CORPUSCULAR HEMOGLOBIN (BEAKER) (test qsux=150) 27.5 pg 25.6-32.2 MEAN CORPUSCULAR HEMOGLOBIN CONC (BEAKER) (test ouyw=011) 32.0 GM/DL 32.2-35.5 RED CELL DISTRIBUTION WIDTH (BEAKER) (test rcnk=775) 20.9 % 11.7-14.4 PLATELET COUNT (BEAKER) (test zhuo=371) 300 K/CU MM 150-450 MEAN PLATELET VOLUME (BEAKER) (test wujc=341) 9.6 fL 9.4-12.3 NUCLEATED RED BLOOD CELLS (BEAKER) (test hsxt=230) 0 /100 WBC 0-0 NEUTROPHILS RELATIVE PERCENT (BEAKER) (test pguu=732) 66 % LYMPHOCYTES RELATIVE PERCENT (BEAKER) (test mwuh=773) 24 % MONOCYTES RELATIVE PERCENT (BEAKER) (test kkjt=580) 6 % EOSINOPHILS RELATIVE PERCENT (BEAKER) (test ysra=774) 3 % BASOPHILS RELATIVE PERCENT (BEAKER) (test jupk=433) 1 % NEUTROPHILS ABSOLUTE COUNT (BEAKER) (test usdv=601) 5.33 K/ L 1.56-6.13 LYMPHOCYTES ABSOLUTE COUNT (BEAKER) (test yybu=715) 1.99 K/ L 1.18-3.74 MONOCYTES ABSOLUTE COUNT (BEAKER) (test xnzg=512) 0.45 K/ L 0.24-0.36 EOSINOPHILS ABSOLUTE COUNT (BEAKER) (test idpi=365) 0.22 K/ L 0.04-0.36 BASOPHILS ABSOLUTE COUNT (BEAKER) (test jexm=822) 0.05 K/ L 0.01-0.08 IMMATURE GRANULOCYTES-RELATIVE PERCENT (BEAKER) (test zlcz=7045) 1 % 0-1 TROPONIN [id number] 18:07:00* Test Item Value Reference Range Comments TROPONIN I (BEAKER) (test vjkb=108) < ng/mL 0.00-0.03 Troponin I (TnI) levels must be interpreted in the context of the presenting sym ptoms and the clinical findings. Elevated TnI levels indicate myocardial damage, but are not specific for ischemic heart disease. Elevated TnI levels are seen in patients with other cardiac conditions (including myocarditis and congestive h eart failure), and slight TnI elevations occur in patients with other conditions , including sepsis, renal failure, acidosis, acute neurological disease, and per sistent tachyarrhythmia.B-TYPE NATRIURETIC FACTOR (BNP)2017-12-31 18:06:00* Test Item Value Reference Range Comments B-TYPE NATRIURETIC PEPTIDE (BEAKER) (test wrdo=899) 204 pg/mL 0-100 [id number] 18:01:00* Test Item Value Reference Range Comments MAGNESIUM (BEAKER) (test qtya=821) 1.8 mg/dL 1.6-2.6 BASIC METABOLIC [id number] 18:01:00* Test Item Value Reference Range Comments SODIUM (BEAKER) (test lftt=099) 139 meq/L 136-145 POTASSIUM (BEAKER) (test qrew=772) 3.6 meq/L 3.5-5.1 CHLORIDE (BEAKER) (test aoen=928) 107 meq/L 98-107 CO2 (BEAKER) (test aafg=321) 23 meq/L 22-29 BLOOD UREA NITROGEN (BEAKER) (test qhof=047) 6 mg/dL 7-21 CREATININE (BEAKER) (test gywv=898) 0.67 mg/dL 0.57-1.25 GLUCOSE RANDOM (BEAKER) (test hale=567) 79 mg/dL 70-105 CALCIUM (DEANNA) (test eyhm=612) 8.4 mg/dL 8.4-10.2 EGFR (DEANNA) (test vobc=4504) 122 mL/min/1.73 sq m ESTIMATED GFR IS NOT ACCURATE CREATININE CLEARANCE IN PREDICTING GLOMERULAR FILTRATION RATE. ESTIMATED GFR IS NOT APPLICABLE FOR DIALYSIS PATIENTS. BLOOD [id number] 06:44:00* Test Item Value Reference Range Comments CULTURE (DEANNA) (test enow=6411) From Anaerobic Bottle Only Coagulase negative Staphylococcusof a second type GRAM STAIN RESULT (DEANNA) (test xxqj=0908) From anaerobic bottle only: gram positive cocci in clusters Coagulase Negative Staphylococcus Species (CoNS) DETECTED, Methicillin Susceptib le First line therapy: cefazolin, nafcillin (nafcillin preferred for Central Ner vous System infection) Coagulase Negative Staphylococcus (CoNS) DETECTEDmecA NO T DETECTEDOther organisms and resistance markers not contained in this PCR panel cannot be excluded and follow-up of traditional culture results is required. Th is sample was tested at the [facility] Clinical Microbiology Laboratory using the [employer] Blood Culture ID Panel. This test is FDA cleared for in vitro hari gnostic use and has been verified and approved by the [facility] Clinical Microbiolog y laboratory for clinical use. Reference Range: Not DetectedBLOOD CULTURE 2017-09-09 17:00:00* Test Item Value Reference Range Comments CULTURE (DEANNA) (test erxv=6449) No growth in 5 days MISCELLANEOUS LAB [id number] 13:20:00* Test Item Value Reference Range Comments SCAN RESULT (test obho=[id number]) Result comments: Coagulase Negative Staphylococcus Species (CoNS) DETECTED, Meth icillin Susceptible First line therapy: cefazolin, nafcillin (nafcillin prefer red for Central Nervous System infection) Coagulase Negative Staphylococcus ( CoNS) DETECTED mecA NOT DETECTED Other organisms and resistance markers not cont ained in this PCR panel cannot be excluded and follow-up of traditional culture results is required. This sample was tested at the [facility] Clinical Microbiology L ab[facility]atory using the [employer] Blood Culture ID Panel. This test is FDA c leared for in vitro diagnostic use and has been verified and approved by the [facility] Clinical Microbiology laboratory for clinical use. Reference Range: Not Detec tedCBC W/PLT COUNT & AUTO [id number] 10:39:00* Test Item Value Reference Range Comments WHITE BLOOD CELL COUNT (BEAKER) (test sayr=645) 11.6 K/ L 3.5-10.5 RED BLOOD CELL COUNT (BEAKER) (test ijmm=229) 2.87 M/ L 3.93-5.22 HEMOGLOBIN (BEAKER) (test kwrp=851) 7.9 GM/DL 11.2-15.7 HEMATOCRIT (BEAKER) (test izzz=893) 25.8 % 34.1-44.9 MEAN CORPUSCULAR VOLUME (BEAKER) (test aumw=929) 89.9 fL 79.4-94.8 MEAN CORPUSCULAR HEMOGLOBIN (BEAKER) (test bmpl=175) 27.5 pg 25.6-32.2 MEAN CORPUSCULAR HEMOGLOBIN CONC (BEAKER) (test couk=721) 30.6 GM/DL 32.2-35.5 RED CELL DISTRIBUTION WIDTH (BEAKER) (test xfxi=331) 22.3 % 11.7-14.4 PLATELET COUNT (BEAKER) (test vmey=602) 356 K/CU MM 150-450 MEAN PLATELET VOLUME (BEAKER) (test oejg=557) 9.9 fL 9.4-12.3 NUCLEATED RED BLOOD CELLS (BEAKER) (test wxep=581) 5 /100 WBC 0-0 IMMATURE GRANULOCYTES-RELATIVE PERCENT (BEAKER) (test fhio=3105) 2 % 0-1 (MANUAL DIFFERENTIAL)2017-09-07 10:39:00* Test Item Value Reference Range Comments NEUTROPHILS - REL (DIFF) (BEAKER) (test gjcw=5617) 43 % LYMPHOCYTES - REL (DIFF) (BEAKER) (test lhzi=1972) 41 % MONOCYTES - REL (DIFF) (BEAKER) (test tfge=5947) 10 % EOSINOPHILS - REL (DIFF) (BEAKER) (test fnfh=7131) 5 % BASOPHILS - REL (DIFF) (BEAKER) (test nhrq=3543) 0 % MYELOCYTES-REL (DIFF) (BEAKER) (test mjzb=7117) 1 % 0-0 NEUTROPHILS - ABS (DIFF) (BEAKER) (test rrck=2146) 4.99 K/ L 1.80-8.00 LYMPHOCYTES - ABS (DIFF) (BEAKER) (test wsut=5994) 4.76 K/ L 1.48-4.50 MONOCYTES - ABS (DIFF) (BEAKER) (test kqkz=7649) 1.16 K/ L 0.00-1.30 EOSINOPHILS - ABS (DIFF) (BEAKER) (test pyky=7266) 0.58 K/ L 0.00-0.50 BASOPHILS - ABS (DIFF) (BEAKER) (test ihjf=9451) 0.00 K/ L 0.00-0.20 MYELOCYTES-ABS (DIFF) (BEAKER) (test cwyb=7896) 0.12 K/ L 0.00-0.00 TOTAL COUNTED (BEAKER) (test nzuw=1542) 100 MANUAL NRBC PER 100 CELLS (BEAKER) (test fygx=2532) 5 /100 WBC 0-0 WBC MORPHOLOGY (BEAKER) (test tqle=744) Normal PLT MORPHOLOGY (BEAKER) (test ednw=195) Normal ANISOCYTOSIS (BEAKER) (test apam=993) 2+ moderate POLYCHROMATOPHILLIC RBCS(BEAKER) (test ylrn=129) 2+ moderate SICKLE CELLS (BEAKER) (test eyvf=165) 1+ few TARGET CELLS (BEAKER) (test cisr=552) 2+ moderate [id number] 08:14:00* Test Item Value Reference Range Comments MAGNESIUM (BEAKER) (test gegf=325) 1.8 mg/dL 1.6-2.6 Specimen slightly hemolyzed [id number] 08:14:00* Test Item Value Reference Range Comments PHOSPHORUS (BEAKER) (test sifa=890) 3.9 mg/dL 2.3-4.7 Specimen slightly hemolyzed BASIC METABOLIC [id number] 08:14:00* Test Item Value Reference Range Comments SODIUM (BEAKER) (test mtrk=478) 137 meq/L 136-145 POTASSIUM (BEAKER) (test ypho=884) 4.0 meq/L 3.5-5.1 Specimen slightly hemolyzed CHLORIDE (BEAKER) (test qtiw=884) 105 meq/L 98-107 CO2 (BEAKER) (test luvq=825) 23 meq/L 22-29 BLOOD UREA NITROGEN (BEAKER) (test bynv=539) 4 mg/dL 7-21 CREATININE (BEAKER) (test uzwd=388) 0.62 mg/dL 0.57-1.25 Specimen slightly hemolyzed GLUCOSE RANDOM (BEAKER) (test oujc=481) 88 mg/dL 70-105 CALCIUM (BEAKER) (test dezt=743) 8.3 mg/dL 8.4-10.2 EGFR (BEAKER) (test nxlv=8936) 134 mL/min/1.73 sq m ESTIMATED GFR IS NOT ACCURATE CREATININE CLEARANCE IN PREDICTING GLOMERULAR FILTRATION RATE. ESTIMATED GFR IS NOT APPLICABLE FOR DIALYSIS PATIENTS. Specimen slightly ictericCBC W/PLT COUNT & AUTO [id number] 10:19:00 * Test Item Value Reference Range Comments WHITE BLOOD CELL COUNT (BEAKER) (test xayn=072) 14.4 K/ L 3.5-10.5 RED BLOOD CELL COUNT (BEAKER) (test fedn=132) 2.69 M/ L 3.93-5.22 HEMOGLOBIN (BEAKER) (test hfwz=806) 7.5 GM/DL 11.2-15.7 HEMATOCRIT (BEAKER) (test xmis=554) 24.3 % 34.1-44.9 MEAN CORPUSCULAR VOLUME (BEAKER) (test hewx=768) 90.3 fL 79.4-94.8 MEAN CORPUSCULAR HEMOGLOBIN (BEAKER) (test phug=897) 27.9 pg 25.6-32.2 MEAN CORPUSCULAR HEMOGLOBIN CONC (BEAKER) (test wvfq=740) 30.9 GM/DL 32.2-35.5 RED CELL DISTRIBUTION WIDTH (BEAKER) (test kzfs=193) 23.6 % 11.7-14.4 PLATELET COUNT (BEAKER) (test izej=209) 363 K/CU MM 150-450 MEAN PLATELET VOLUME (BEAKER) (test wjxb=257) 10.1 fL 9.4-12.3 NUCLEATED RED BLOOD CELLS (BEAKER) (test srck=759) 10 /100 WBC 0-0 NEUTROPHILS RELATIVE PERCENT (BEAKER) (test khbm=605) 54 % LYMPHOCYTES RELATIVE PERCENT (BEAKER) (test vhif=705) 30 % MONOCYTES RELATIVE PERCENT (BEAKER) (test mduu=785) 7 % EOSINOPHILS RELATIVE PERCENT (BEAKER) (test uohn=944) 6 % BASOPHILS RELATIVE PERCENT (BEAKER) (test dink=650) 1 % NEUTROPHILS ABSOLUTE COUNT (BEAKER) (test djvj=153) 7.76 K/ L 1.56-6.13 LYMPHOCYTES ABSOLUTE COUNT (BEAKER) (test qmyx=274) 4.28 K/ L 1.18-3.74 MONOCYTES ABSOLUTE COUNT (BEAKER) (test jovl=355) 1.02 K/ L 0.24-0.36 EOSINOPHILS ABSOLUTE COUNT (BEAKER) (test deme=839) 0.86 K/ L 0.04-0.36 BASOPHILS ABSOLUTE COUNT (BEAKER) (test axcw=295) 0.13 K/ L 0.01-0.08 IMMATURE GRANULOCYTES-RELATIVE PERCENT (BEAKER) (test budh=2569) 3 % 0-1 (MANUAL DIFFERENTIAL)2017-09-06 10:19:00* Test Item Value Reference Range Comments TOTAL COUNTED (BEAKER) (test uinm=2590) WBC MORPHOLOGY (BEAKER) (test twrr=934) Normal PLT MORPHOLOGY (BEAKER) (test glzr=453) Normal ANISOCYTOSIS (BEAKER) (test cijs=944) 2+ moderate HYPOCHROMIA (BEAKER) (test gupb=011) 1+ few MACROCYTES (BEAKER) (test yfie=163) 1+ few POLYCHROMATOPHILLIC RBCS(BEAKER) (test jswp=312) 3+ many [id number] 07:03:00* Test Item Value Reference Range Comments MAGNESIUM (BEAKER) (test cijn=062) 1.8 mg/dL 1.6-2.6 Specimen slightly hemolyzed [id number] 07:03:00* Test Item Value Reference Range Comments PHOSPHORUS (BEAKER) (test qkvg=572) 3.7 mg/dL 2.3-4.7 Specimen slightly hemolyzed BASIC METABOLIC [id number] 07:03:00* Test Item Value Reference Range Comments SODIUM (BEAKER) (test fezc=995) 140 meq/L 136-145 POTASSIUM (BEAKER) (test iyjq=928) 3.8 meq/L 3.5-5.1 Specimen slightly hemolyzed CHLORIDE (BEAKER) (test mhwf=366) 108 meq/L 98-107 CO2 (BEAKER) (test rwzy=007) 24 meq/L 22-29 BLOOD UREA NITROGEN (BEAKER) (test jgvq=813) 4 mg/dL 7-21 CREATININE (BEAKER) (test qrdk=280) 0.62 mg/dL 0.57-1.25 Specimen slightly hemolyzed GLUCOSE RANDOM (BEAKER) (test dcud=694) 90 mg/dL 70-105 CALCIUM (BEAKER) (test tmzf=054) 8.4 mg/dL 8.4-10.2 EGFR (BEAKER) (test uzfy=9671) 134 mL/min/1.73 sq m ESTIMATED GFR IS NOT ACCURATE CREATININE CLEARANCE IN PREDICTING GLOMERULAR FILTRATION RATE. ESTIMATED GFR IS NOT APPLICABLE FOR DIALYSIS PATIENTS. CBC W/PLT COUNT & AUTO [id number] 13:15:00* Test Item Value Reference Range Comments WHITE BLOOD CELL COUNT (BEAKER) (test goss=052) 14.1 K/ L 3.5-10.5 RED BLOOD CELL COUNT (BEAKER) (test rinc=100) 2.76 M/ L 3.93-5.22 HEMOGLOBIN (BEAKER) (test xjqb=700) 7.5 GM/DL 11.2-15.7 HEMATOCRIT (BEAKER) (test bunq=997) 24.8 % 34.1-44.9 MEAN CORPUSCULAR VOLUME (BEAKER) (test ipxq=745) 89.9 fL 79.4-94.8 MEAN CORPUSCULAR HEMOGLOBIN (BEAKER) (test gswy=171) 27.2 pg 25.6-32.2 MEAN CORPUSCULAR HEMOGLOBIN CONC (BEAKER) (test eonx=036) 30.2 GM/DL 32.2-35.5 RED CELL DISTRIBUTION WIDTH (BEAKER) (test zlhz=343) 21.7 % 11.7-14.4 PLATELET COUNT (BEAKER) (test zqnv=073) 356 K/CU MM 150-450 MEAN PLATELET VOLUME (BEAKER) (test padu=668) 10.3 fL 9.4-12.3 NUCLEATED RED BLOOD CELLS (BEAKER) (test gjbw=440) 9 /100 WBC 0-0 IMMATURE GRANULOCYTES-RELATIVE PERCENT (BEAKER) (test khlj=0104) 4 % 0-1 (MANUAL DIFFERENTIAL)2017-09-05 13:15:00* Test Item Value Reference Range Comments NEUTROPHILS - REL (DIFF) (BEAKER) (test rzhs=3491) 56 % LYMPHOCYTES - REL (DIFF) (BEAKER) (test nfnf=2643) 31 % MONOCYTES - REL (DIFF) (BEAKER) (test elsb=9298) 9 % EOSINOPHILS - REL (DIFF) (BEAKER) (test npjn=8306) 2 % MYELOCYTES-REL (DIFF) (BEAKER) (test xmso=7325) 2 % 0-0 NEUTROPHILS - ABS (DIFF) (BEAKER) (test fjfc=5392) 7.90 K/ L 1.80-8.00 LYMPHOCYTES - ABS (DIFF) (BEAKER) (test uldo=3355) 4.37 K/ L 1.48-4.50 MONOCYTES - ABS (DIFF) (BEAKER) (test ldji=6148) 1.27 K/ L 0.00-1.30 EOSINOPHILS - ABS (DIFF) (BEAKER) (test eqvf=3535) 0.28 K/ L 0.00-0.50 MYELOCYTES-ABS (DIFF) (BEAKER) (test qgtu=6546) 0.28 K/ L 0.00-0.00 TOTAL COUNTED (BEAKER) (test vjtw=7382) 100 MANUAL NRBC PER 100 CELLS (BEAKER) (test nkpa=4475) 9 /100 WBC 0-0 WBC MORPHOLOGY (BEAKER) (test uenc=703) Normal PLT MORPHOLOGY (BEAKER) (test xxvr=765) Normal SCHISTOCYTES (BEAKER) (test qexe=794) 1+ few SICKLE CELLS (BEAKER) (test yjti=232) 1+ few TARGET CELLS (BEAKER) (test cwif=703) 1+ few BASIC METABOLIC [id number] 11:14:00* Test Item Value Reference Range Comments SODIUM (BEAKER) (test bmah=293) 140 meq/L 136-145 POTASSIUM (BEAKER) (test vdvh=526) 3.7 meq/L 3.5-5.1 Specimen slightly hemolyzed CHLORIDE (BEAKER) (test xpex=184) 111 meq/L 98-107 CO2 (BEAKER) (test syoe=255) 23 meq/L 22-29 BLOOD UREA NITROGEN (BEAKER) (test irlm=952) 3 mg/dL 7-21 CREATININE (BEAKER) (test ikdl=351) 0.60 mg/dL 0.57-1.25 Specimen slightly hemolyzed GLUCOSE RANDOM (BEAKER) (test ntth=590) 72 mg/dL 70-105 CALCIUM (BEAKER) (test rgwb=685) 7.5 mg/dL 8.4-10.2 EGFR (BEAKER) (test amog=4208) 139 mL/min/1.73 sq m ESTIMATED GFR IS NOT ACCURATE CREATININE CLEARANCE IN PREDICTING GLOMERULAR FILTRATION RATE. ESTIMATED GFR IS NOT APPLICABLE FOR DIALYSIS PATIENTS. [id number] 11:11:00* Test Item Value Reference Range Comments MAGNESIUM (BEAKER) (test ixjc=382) 1.7 mg/dL 1.6-2.6 Specimen slightly hemolyzed [id number] 11:11:00* Test Item Value Reference Range Comments PHOSPHORUS (BEAKER) (test gvkp=164) 3.3 mg/dL 2.3-4.7 Specimen slightly hemolyzed CBC W/PLT COUNT & AUTO [id number] 14:51:00* Test Item Value Reference Range Comments WHITE BLOOD CELL COUNT (BEAKER) (test pqll=264) 13.9 K/ L 3.5-10.5 RED BLOOD CELL COUNT (BEAKER) (test wrha=571) 2.25 M/ L 3.93-5.22 HEMOGLOBIN (BEAKER) (test ckwa=399) 6.1 GM/DL 11.2-15.7 HEMATOCRIT (BEAKER) (test xfvb=398) 19.9 % 34.1-44.9 MEAN CORPUSCULAR VOLUME (BEAKER) (test rila=867) 88.4 fL 79.4-94.8 MEAN CORPUSCULAR HEMOGLOBIN (BEAKER) (test wiqf=567) 27.1 pg 25.6-32.2 MEAN CORPUSCULAR HEMOGLOBIN CONC (BEAKER) (test bnhk=999) 30.7 GM/DL 32.2-35.5 RED CELL DISTRIBUTION WIDTH (BEAKER) (test nokw=556) 21.4 % 11.7-14.4 PLATELET COUNT (BEAKER) (test xtbc=825) 366 K/CU MM 150-450 MEAN PLATELET VOLUME (BEAKER) (test ccqw=948) 9.9 fL 9.4-12.3 NUCLEATED RED BLOOD CELLS (BEAKER) (test mtti=146) 5 /100 WBC 0-0 NEUTROPHILS RELATIVE PERCENT (BEAKER) (test ttya=748) 47 % LYMPHOCYTES RELATIVE PERCENT (BEAKER) (test exlx=248) 38 % MONOCYTES RELATIVE PERCENT (BEAKER) (test wvrk=431) 7 % EOSINOPHILS RELATIVE PERCENT (BEAKER) (test togy=435) 4 % BASOPHILS RELATIVE PERCENT (BEAKER) (test zfft=401) 1 % NEUTROPHILS ABSOLUTE COUNT (BEAKER) (test zbnu=609) 6.51 K/ L 1.56-6.13 LYMPHOCYTES ABSOLUTE COUNT (BEAKER) (test zuft=994) 5.29 K/ L 1.18-3.74 MONOCYTES ABSOLUTE COUNT (BEAKER) (test rnhw=998) 0.90 K/ L 0.24-0.36 EOSINOPHILS ABSOLUTE COUNT (BEAKER) (test mbok=863) 0.52 K/ L 0.04-0.36 BASOPHILS ABSOLUTE COUNT (BEAKER) (test vjkq=336) 0.14 K/ L 0.01-0.08 IMMATURE GRANULOCYTES-RELATIVE PERCENT (BEAKER) (test mxej=8441) 4 % 0-1 (MANUAL DIFFERENTIAL)2017-09-04 14:51:00* Test Item Value Reference Range Comments TOTAL COUNTED (BEAKER) (test zwhy=7418) WBC MORPHOLOGY (BEAKER) (test ykwv=443) Normal PLT MORPHOLOGY (BEAKER) (test yahl=389) Normal ANISOCYTOSIS (BEAKER) (test eqtn=577) 2+ moderate POLYCHROMATOPHILLIC RBCS(BEAKER) (test nfva=212) 2+ moderate SICKLE CELLS (BEAKER) (test ljcw=540) 1+ few TARGET CELLS (BEAKER) (test fngs=680) 2+ moderate RAD, CHEST, 1 VIEW, NON [id number] 13:47:00Reason for exam:->SICKLE CELL PAIN CRISISReason for exam:->leukocytosisShould this be performed at the bedside?->YesFINAL REPORT Chest one view compared to July 01, 2017 Discussion: There is a right chest Port-A-Cath unchanged. There is mild interstitial prominence unchanged. Heart size normal. No effusion or pneumothorax. No evidence of focal infiltrate or consolidation. Signed: Franck Le Verified Date/Time: 09/04/2017 13:47:06 Reading Location: [facility] [id number] Consult Reading Room IC ACID, VENOUS, WHOLE [id number] 13:32:00 * Test Item Value Reference Range Comments LACTATE BLOOD VENOUS (2) (BEAKER) (test xejs=6947) 0.8 mmol/L 0.5-2.2 Specimen slightly hemolyzed Effective 11/08/2015: Units/Reference Range ChangeNew: 0.5-2.2 mmol/L Previous: 5 -20 mg/dLBASIC METABOLIC [id number] 11:58:00* Test Item Value Reference Range Comments SODIUM (BEAKER) (test oulr=176) 141 meq/L 136-145 POTASSIUM (BEAKER) (test htns=959) 3.2 meq/L 3.5-5.1 CHLORIDE (BEAKER) (test sqay=379) 112 meq/L 98-107 CO2 (BEAKER) (test ujby=826) 23 meq/L 22-29 BLOOD UREA NITROGEN (BEAKER) (test zlsc=270) 4 mg/dL 7-21 CREATININE (BEAKER) (test qjkf=068) 0.58 mg/dL 0.57-1.25 GLUCOSE RANDOM (BEAKER) (test nhon=809) 80 mg/dL 70-105 CALCIUM (BEAKER) (test mbgq=355) 7.4 mg/dL 8.4-10.2 EGFR (BEAKER) (test dmmd=9362) 144 mL/min/1.73 sq m ESTIMATED GFR IS NOT ACCURATE CREATININE CLEARANCE IN PREDICTING GLOMERULAR FILTRATION RATE. ESTIMATED GFR IS NOT APPLICABLE FOR DIALYSIS PATIENTS. LACTATE DEHYDROGENASE (LDH)2017-09-04 11:46:00* Test Item Value Reference Range Comments LACTATE DEHYDROGENASE (BEAKER) (test gckg=363) 288 U/L 125-220 RETICULOCYTE [id number] 11:44:00* Test Item Value Reference Range Comments RETICULOCYTE COUNT PCT (BEAKER) (test rqjd=722) 12.9 % 0.5-1.7 URINALYSIS W/ [id number] 11:28:00* Test Item Value Reference Range Comments COLOR (BEAKER) (test rczr=646) Yellow CLARITY (BEAKER) (test nkej=120) Clear SPECIFIC GRAVITY UA (BEAKER) (test zexz=869) 1.009 1.001-1.035 PH UA (BEAKER) (test wove=832) 6.0 5.0-8.0 PROTEIN UA (BEAKER) (test hdiz=599) Negative Negative GLUCOSE UA (BEAKER) (test zlfv=457) Negative Negative KETONES UA (BEAKER) (test fsoe=827) Negative Negative BILIRUBIN UA (BEAKER) (test ybtx=054) Negative Negative BLOOD UA (BEAKER) (test qaag=885) Negative Negative NITRITE UA (BEAKER) (test mhnt=251) Negative Negative LEUKOCYTE ESTERASE UA (BEAKER) (test mlsj=785) Small Negative UROBILINOGEN UA (BEAKER) (test uplr=372) 3.0 mg/dL 0.2-1.0 RBC UA (BEAKER) (test ibgn=689) 1 /HPF WBC UA (BEAKER) (test tthl=956) 2 /HPF MUCUS (BEAKER) (test afcj=3251) Rare SQUAMOUS EPITHELIAL (BEAKER) (test jzhc=553) 1 /HPF HYALINE CASTS (BEAKER) (test ixpg=118) 2 /LPF SOURCE(BEAKER) (test znnq=5268) Urine, Clean Catch SCREEN, [id number] 11:25:00* Test Item Value Reference Range Comments TEST URINE (BEAKER) (test tngc=104) Negative BLOOD [id number] 17:00:00* Test Item Value Reference Range Comments CULTURE (BEAKER) (test dsrc=5385) No growth in 5 days (MANUAL DIFFERENTIAL)2017-07-03 15:35:00* Test Item Value Reference Range Comments TOTAL COUNTED (BEAKER) (test sjnx=1676) WBC MORPHOLOGY (BEAKER) (test lplg=397) Normal PLT MORPHOLOGY (BEAKER) (test isll=884) Normal ANISOCYTOSIS (BEAKER) (test kxba=286) 2+ moderate POLYCHROMATOPHILLIC RBCS(BEAKER) (test xcar=943) 2+ moderate SICKLE CELLS (BEAKER) (test hgjj=515) 1+ few TARGET CELLS (BEAKER) (test hhek=472) 2+ moderate CBC W/PLT COUNT & AUTO [id number] 14:50:00* Test Item Value Reference Range Comments WHITE BLOOD CELL COUNT (BEAKER) (test czdw=458) 6.5 K/ L 3.5-10.5 This is a corrected result. Previous result was 6.3 K/ L on 07/03/2017 at 0618 CLINICAL DENTAL TECHNICIAN RED BLOOD CELL COUNT (BEAKER) (test fbry=195) 3.03 M/ L 3.93-5.22 This is a corrected result. Previous result was 2.99 M/ L on 07/03/2017 at 0618 CLINICAL DENTAL TECHNICIAN HEMOGLOBIN (BEAKER) (test jqht=692) 8.4 GM/DL 11.2-15.7 This is a corrected result. Previous result was 8.3 GM/DL on 07/03/2017 at 0618 CLINICAL DENTAL TECHNICIAN HEMATOCRIT (BEAKER) (test fecn=459) 26.4 % 34.1-44.9 This is a corrected result. Previous result was 26.0 % on 07/03/2017 at 0618 CLINICAL DENTAL TECHNICIAN MEAN CORPUSCULAR VOLUME (BEAKER) (test exrs=988) 87.1 fL 79.4-94.8 This is a corrected result. Previous result was 87.0 fL on 07/03/2017 at 0618 CLINICAL DENTAL TECHNICIAN MEAN CORPUSCULAR HEMOGLOBIN (BEAKER) (test oega=997) 27.7 pg 25.6-32.2 This is a corrected result. Previous result was 27.8 pg on 07/03/2017 at 0618 CLINICAL DENTAL TECHNICIAN MEAN CORPUSCULAR HEMOGLOBIN CONC (BEAKER) (test vgvm=037) 31.8 GM/DL 32.2-35.5 This is a corrected result. Previous result was 31.9 GM/DL on 07/03/2017 at 0618 CLINICAL DENTAL TECHNICIAN RED CELL DISTRIBUTION WIDTH (BEAKER) (test foez=295) 19.0 % 11.7-14.4 This is a corrected result. Previous result was 18.9 % on 07/03/2017 at 0618 CLINICAL DENTAL TECHNICIAN PLATELET COUNT (BEAKER) (test jtix=756) 272 K/CU MM 150-450 This is a corrected result. Previous result was 271 K/CU MM on 07/03/2017 at 0618 CLINICAL DENTAL TECHNICIAN MEAN PLATELET VOLUME (BEAKER) (test xpvm=848) 9.7 fL 9.4-12.3 This is a corrected result. Previous result was 9.4 fL on 07/03/2017 at 0618 CLINICAL DENTAL TECHNICIAN NUCLEATED RED BLOOD CELLS (BEAKER) (test dxbj=756) 0 /100 WBC 0-0 NEUTROPHILS RELATIVE PERCENT (BEAKER) (test lsbp=689) 38 % LYMPHOCYTES RELATIVE PERCENT (BEAKER) (test kout=104) 44 % MONOCYTES RELATIVE PERCENT (BEAKER) (test njkb=127) 12 % EOSINOPHILS RELATIVE PERCENT (BEAKER) (test hoaa=420) 4 % BASOPHILS RELATIVE PERCENT (BEAKER) (test ijcr=690) 1 % NEUTROPHILS ABSOLUTE COUNT (BEAKER) (test grzx=479) 2.46 K/ L 1.56-6.13 LYMPHOCYTES ABSOLUTE COUNT (BEAKER) (test togf=738) 2.85 K/ L 1.18-3.74 MONOCYTES ABSOLUTE COUNT (BEAKER) (test uvow=531) 0.78 K/ L 0.24-0.36 EOSINOPHILS ABSOLUTE COUNT (BEAKER) (test yfll=377) 0.25 K/ L 0.04-0.36 BASOPHILS ABSOLUTE COUNT (BEAKER) (test lmxm=000) 0.07 K/ L 0.01-0.08 IMMATURE GRANULOCYTES-RELATIVE PERCENT (BEAKER) (test gqez=1325) 1 % 0-1 This is a corrected result. Previous result was 0 % on 07/03/2017 at 0618 CLINICAL DENTAL TECHNICIAN BASIC METABOLIC [id number] 06:44:00* Test Item Value Reference Range Comments SODIUM (BEAKER) (test cwjf=516) 135 meq/L 136-145 POTASSIUM (BEAKER) (test uzcp=973) 4.1 meq/L 3.5-5.1 CHLORIDE (BEAKER) (test hrsd=213) 105 meq/L 98-107 CO2 (BEAKER) (test sxkb=055) 22 meq/L 22-29 BLOOD UREA NITROGEN (BEAKER) (test ihpp=225) 5 mg/dL 7-21 CREATININE (BEAKER) (test xpka=438) 0.65 mg/dL 0.57-1.25 GLUCOSE RANDOM (BEAKER) (test hwon=865) 123 mg/dL 70-105 CALCIUM (BEAKER) (test eozv=336) 8.3 mg/dL 8.4-10.2 EGFR (BEAKER) (test ozko=8667) 127 mL/min/1.73 sq m ESTIMATED GFR IS NOT ACCURATE CREATININE CLEARANCE IN PREDICTING GLOMERULAR FILTRATION RATE. ESTIMATED GFR IS NOT APPLICABLE FOR DIALYSIS PATIENTS. RETICULOCYTE [id number] 06:36:00* Test Item Value Reference Range Comments RETICULOCYTE COUNT PCT (BEAKER) (test iwud=896) 7.8 % 0.5-1.7 RETICULOCYTE [id number] 07:11:00* Test Item Value Reference Range Comments RETICULOCYTE COUNT PCT (BEAKER) (test bngh=372) 9.7 % 0.5-1.7 BASIC METABOLIC [id number] 06:56:00* Test Item Value Reference Range Comments SODIUM (BEAKER) (test pfzm=918) 134 meq/L 136-145 POTASSIUM (BEAKER) (test veaf=384) 3.8 meq/L 3.5-5.1 CHLORIDE (BEAKER) (test yawa=342) 104 meq/L 98-107 CO2 (BEAKER) (test vnqw=106) 23 meq/L 22-29 BLOOD UREA NITROGEN (BEAKER) (test uior=666) 4 mg/dL 7-21 CREATININE (BEAKER) (test mvwa=659) 0.61 mg/dL 0.57-1.25 GLUCOSE RANDOM (BEAKER) (test xoro=082) 108 mg/dL 70-105 CALCIUM (BEAKER) (test makb=811) 8.2 mg/dL 8.4-10.2 EGFR (BEAKER) (test bfvs=1662) 137 mL/min/1.73 sq m ESTIMATED GFR IS NOT ACCURATE CREATININE CLEARANCE IN PREDICTING GLOMERULAR FILTRATION RATE. ESTIMATED GFR IS NOT APPLICABLE FOR DIALYSIS PATIENTS. CBC W/PLT COUNT & AUTO [id number] 06:37:00* Test Item Value Reference Range Comments WHITE BLOOD CELL COUNT (BEAKER) (test exnm=247) 6.1 K/ L 3.5-10.5 RED BLOOD CELL COUNT (BEAKER) (test ojpb=381) 3.06 M/ L 3.93-5.22 HEMOGLOBIN (BEAKER) (test awfa=303) 8.7 GM/DL 11.2-15.7 HEMATOCRIT (BEAKER) (test hmsv=599) 27.2 % 34.1-44.9 MEAN CORPUSCULAR VOLUME (BEAKER) (test wznu=687) 88.9 fL 79.4-94.8 MEAN CORPUSCULAR HEMOGLOBIN (BEAKER) (test ajof=604) 28.4 pg 25.6-32.2 MEAN CORPUSCULAR HEMOGLOBIN CONC (BEAKER) (test izci=861) 32.0 GM/DL 32.2-35.5 RED CELL DISTRIBUTION WIDTH (BEAKER) (test sbsf=404) 19.9 % 11.7-14.4 PLATELET COUNT (BEAKER) (test bmrd=058) 262 K/CU MM 150-450 MEAN PLATELET VOLUME (BEAKER) (test jrxt=487) 9.5 fL 9.4-12.3 NUCLEATED RED BLOOD CELLS (BEAKER) (test tncy=790) 0 /100 WBC 0-0 NEUTROPHILS RELATIVE PERCENT (BEAKER) (test zexs=457) 61 % LYMPHOCYTES RELATIVE PERCENT (BEAKER) (test hpnu=947) 30 % MONOCYTES RELATIVE PERCENT (BEAKER) (test laez=111) 6 % EOSINOPHILS RELATIVE PERCENT (BEAKER) (test hxyh=730) 1 % BASOPHILS RELATIVE PERCENT (BEAKER) (test vplz=470) 1 % NEUTROPHILS ABSOLUTE COUNT (BEAKER) (test ttwh=113) 3.73 K/ L 1.56-6.13 LYMPHOCYTES ABSOLUTE COUNT (BEAKER) (test inrw=209) 1.84 K/ L 1.18-3.74 MONOCYTES ABSOLUTE COUNT (BEAKER) (test deex=351) 0.38 K/ L 0.24-0.36 EOSINOPHILS ABSOLUTE COUNT (BEAKER) (test srol=951) 0.07 K/ L 0.04-0.36 BASOPHILS ABSOLUTE COUNT (BEAKER) (test dfzi=605) 0.06 K/ L 0.01-0.08 IMMATURE GRANULOCYTES-RELATIVE PERCENT (BEAKER) (test nxyw=1774) 1 % 0-1 URINALYSIS W/ REFLEX URINE [id number] 06:36:00* Test Item Value Reference Range Comments COLOR (BEAKER) (test aetk=886) Yellow CLARITY (BEAKER) (test ebzq=296) Clear SPECIFIC GRAVITY UA (BEAKER) (test zafy=256) 1.004 1.001-1.035 PH UA (BEAKER) (test nkfa=068) 7.0 5.0-8.0 PROTEIN UA (BEAKER) (test kdeq=127) Negative Negative GLUCOSE UA (BEAKER) (test zbpp=653) Negative Negative KETONES UA (BEAKER) (test bzdi=263) Negative Negative BILIRUBIN UA (BEAKER) (test whxj=107) Negative Negative BLOOD UA (BEAKER) (test jyvz=694) Negative Negative NITRITE UA (BEAKER) (test sycg=756) Negative Negative LEUKOCYTE ESTERASE UA (BEAKER) (test zpgf=169) Negative Negative UROBILINOGEN UA (BEAKER) (test abbu=700) 2.0 mg/dL 0.2-1.0 RBC UA (BEAKER) (test iwgm=222) < /HPF WBC UA (BEAKER) (test haff=101) 1 /HPF BACTERIA (BEAKER) (test icua=815) Rare SQUAMOUS EPITHELIAL (BEAKER) (test ogcm=183) 2 /HPF SOURCE(BEAKER) (test kslx=7009) RESPIRATORY PANEL [id number] 15:27:00* Test Item Value Reference Range Comments HUMAN METAPNEUMOVIRUS (BEAKER) (test nloa=6267) Not detected Not detected, Inconclusive RHINOVIRUS (BEAKER) (test chkf=5385) Not detected Not detected, Inconclusive INFLUENZA A (BEAKER) (test gjlf=4042) Not detected Not detected, Inconclusive INFLUENZA A SUBTYPE H1 (BEAKER) (test wcfv=8378) Not detected Not detected, Inconclusive INFLUENZA A SUBTYPE H3 (BEAKER) (test wmhz=5818) Not detected Not detected, Inconclusive INFLUENZA A SUBTYPE H1-2009 (BEAKER) (test rknh=4693) Not detected Not detected, Inconclusive INFLUENZA B (BEAKER) (test rtdm=1906) Not detected Not detected, Inconclusive RESPIRATORY SYNCYTIAL VIRUS (BEAKER) (test ipty=7740) Not detected Not detected, Inconclusive PARAINFLUENZA VIRUS 1 (BEAKER) (test ijda=8297) Not detected Not detected, Inconclusive PARAINFLUENZA VIRUS 2 (BEAKER) (test aivv=1344) Not detected Not detected, Inconclusive PARAINFLUENZA VIRUS 3 (BEAKER) (test sday=6603) Not detected Not detected, Inconclusive PARAINFLUENZA VIRUS 4 (BEAKER) (test pygc=4103) Not detected Not detected, Inconclusive ADENOVIRUS (BEAKER) (test zork=5117) Not detected Not detected, Inconclusive CORONAVIRUS 229E (BEAKER) (test lobi=0631) Not detected Not detected, Inconclusive CORONAVIRUS HKU1 (BEAKER) (test bect=9763) Not detected Not detected, Inconclusive CORONAVIRUS NL63 (BEAKER) (test hujr=0215) Not detected Not detected, Inconclusive CORONAVIRUS OC43 (BEAKER) (test rkrp=5173) Not detected Not detected, Inconclusive BORDETELLA PERTUSSIS (BEAKER) (test bvez=5135) Not detected Not detected, Inconclusive CHLAMYDOPHILA PNEUMONIAE (BEAKER) (test dyjy=7947) Not detected Not detected, Inconclusive MYCOPLASMA PNEUMONIAE (BEAKER) (test fypj=5624) Not detected Not detected, Inconclusive RAD, CHEST, 1 VIEW, NON [id number] 11:30:00Reason for exam:->feverShould this be performed at the bedside?->YesFINAL REPORT Chest, single frontal view History: Fever. Comparison: 06/13/2017. Impression:The heart is within normal limits of size. Right internal jugular chest port is in place with the distal catheter tip projecting over the mid SVC. There is mild nonspecific interstitial prominence. There is no focal consolidation, sizable pleural effusion, or pneumothorax. No acute osseous abnormalities. Signed: Amari Cruz [facility] Verified Date/Time: 07/01/2017 11:30:14 Reading Location: [address] Radiology Reading Room CULOCYTE [id number] 07:22:00* Test Item Value Reference Range Comments RETICULOCYTE COUNT PCT (BEAKER) (test zdur=434) 9.5 % 0.5-1.7 CBC W/PLT COUNT & AUTO [id number] 07:22:00* Test Item Value Reference Range Comments WHITE BLOOD CELL COUNT (BEAKER) (test eegs=349) 11.9 K/ L 3.5-10.5 RED BLOOD CELL COUNT (BEAKER) (test aqpc=232) 3.10 M/ L 3.93-5.22 HEMOGLOBIN (BEAKER) (test ktys=562) 8.6 GM/DL 11.2-15.7 HEMATOCRIT (BEAKER) (test nqbk=734) 27.5 % 34.1-44.9 MEAN CORPUSCULAR VOLUME (BEAKER) (test hchh=237) 88.7 fL 79.4-94.8 MEAN CORPUSCULAR HEMOGLOBIN (BEAKER) (test kvdv=673) 27.7 pg 25.6-32.2 MEAN CORPUSCULAR HEMOGLOBIN CONC (BEAKER) (test lrdx=421) 31.3 GM/DL 32.2-35.5 RED CELL DISTRIBUTION WIDTH (BEAKER) (test hecu=170) 20.6 % 11.7-14.4 PLATELET COUNT (BEAKER) (test ncgz=616) 308 K/CU MM 150-450 MEAN PLATELET VOLUME (BEAKER) (test fnpr=557) 9.7 fL 9.4-12.3 NUCLEATED RED BLOOD CELLS (BEAKER) (test mjfp=100) 0 /100 WBC 0-0 NEUTROPHILS RELATIVE PERCENT (BEAKER) (test kowz=466) 84 % LYMPHOCYTES RELATIVE PERCENT (BEAKER) (test pxfy=078) 8 % MONOCYTES RELATIVE PERCENT (BEAKER) (test tvbn=144) 4 % EOSINOPHILS RELATIVE PERCENT (BEAKER) (test ljza=727) 2 % BASOPHILS RELATIVE PERCENT (BEAKER) (test mpfy=084) 1 % NEUTROPHILS ABSOLUTE COUNT (BEAKER) (test qixi=206) 10.04 K/ L 1.56-6.13 LYMPHOCYTES ABSOLUTE COUNT (BEAKER) (test gpel=600) 1.00 K/ L 1.18-3.74 MONOCYTES ABSOLUTE COUNT (BEAKER) (test maca=392) 0.47 K/ L 0.24-0.36 EOSINOPHILS ABSOLUTE COUNT (BEAKER) (test pfqj=787) 0.22 K/ L 0.04-0.36 BASOPHILS ABSOLUTE COUNT (BEAKER) (test eudy=165) 0.06 K/ L 0.01-0.08 IMMATURE GRANULOCYTES-RELATIVE PERCENT (BEAKER) (test vfbn=7762) 1 % 0-1 BASIC METABOLIC [id number] 06:44:00* Test Item Value Reference Range Comments SODIUM (BEAKER) (test aelf=709) 135 meq/L 136-145 POTASSIUM (BEAKER) (test sgua=454) 4.4 meq/L 3.5-5.1 Specimen slightly hemolyzed CHLORIDE (BEAKER) (test zsmq=108) 106 meq/L 98-107 CO2 (BEAKER) (test onlk=008) 21 meq/L 22-29 BLOOD UREA NITROGEN (BEAKER) (test sjzw=082) 2 mg/dL 7-21 CREATININE (BEAKER) (test nchc=365) 0.68 mg/dL 0.57-1.25 Specimen slightly hemolyzed GLUCOSE RANDOM (BEAKER) (test bbyc=109) 156 mg/dL 70-105 CALCIUM (BEAKER) (test zpcw=375) 8.1 mg/dL 8.4-10.2 EGFR (BEAKER) (test qepy=4302) 121 mL/min/1.73 sq m ESTIMATED GFR IS NOT ACCURATE CREATININE CLEARANCE IN PREDICTING GLOMERULAR FILTRATION RATE. ESTIMATED GFR IS NOT APPLICABLE FOR DIALYSIS PATIENTS. SCREEN, [id number] 20:56:00* Test Item Value Reference Range Comments TEST URINE (BEAKER) (test nfth=553) Negative CBC W/PLT COUNT & AUTO [id number] 13:09:00* Test Item Value Reference Range Comments WHITE BLOOD CELL COUNT (BEAKER) (test msnt=591) 10.0 K/ L 3.5-10.5 RED BLOOD CELL COUNT (BEAKER) (test emwi=158) 3.02 M/ L 3.93-5.22 HEMOGLOBIN (BEAKER) (test pqhk=260) 8.5 GM/DL 11.2-15.7 HEMATOCRIT (BEAKER) (test gvgi=649) 26.8 % 34.1-44.9 MEAN CORPUSCULAR VOLUME (BEAKER) (test wafy=185) 88.7 fL 79.4-94.8 MEAN CORPUSCULAR HEMOGLOBIN (BEAKER) (test qoca=034) 28.1 pg 25.6-32.2 MEAN CORPUSCULAR HEMOGLOBIN CONC (BEAKER) (test uspr=070) 31.7 GM/DL 32.2-35.5 RED CELL DISTRIBUTION WIDTH (BEAKER) (test zvhu=519) 20.3 % 11.7-14.4 PLATELET COUNT (BEAKER) (test sizu=466) 321 K/CU MM 150-450 MEAN PLATELET VOLUME (BEAKER) (test ypfp=718) 9.5 fL 9.4-12.3 NUCLEATED RED BLOOD CELLS (BEAKER) (test oeoq=803) 0 /100 WBC 0-0 NEUTROPHILS RELATIVE PERCENT (BEAKER) (test vayh=777) 44 % LYMPHOCYTES RELATIVE PERCENT (BEAKER) (test anjb=766) 45 % MONOCYTES RELATIVE PERCENT (BEAKER) (test vrby=885) 6 % EOSINOPHILS RELATIVE PERCENT (BEAKER) (test erub=101) 4 % BASOPHILS RELATIVE PERCENT (BEAKER) (test tpdo=361) 1 % NEUTROPHILS ABSOLUTE COUNT (BEAKER) (test ftim=567) 4.36 K/ L 1.56-6.13 LYMPHOCYTES ABSOLUTE COUNT (BEAKER) (test mweb=609) 4.47 K/ L 1.18-3.74 MONOCYTES ABSOLUTE COUNT (BEAKER) (test hjuz=904) 0.62 K/ L 0.24-0.36 EOSINOPHILS ABSOLUTE COUNT (BEAKER) (test armq=102) 0.41 K/ L 0.04-0.36 BASOPHILS ABSOLUTE COUNT (BEAKER) (test sqej=076) 0.09 K/ L 0.01-0.08 IMMATURE GRANULOCYTES-RELATIVE PERCENT (BEAKER) (test wwxd=5501) 1 % 0-1 (MANUAL DIFFERENTIAL)2017-06-30 13:09:00* Test Item Value Reference Range Comments TOTAL COUNTED (BEAKER) (test tajn=8059) WBC MORPHOLOGY (BEAKER) (test cbjt=129) Normal LARGE PLT(BEAKER) (test cpie=0835) Present POLYCHROMATOPHILLIC RBCS(BEAKER) (test pcbv=669) 1+ few TARGET CELLS (BEAKER) (test vgiy=834) 1+ few COMPREHENSIVE METABOLIC [id number] 12:26:00* Test Item Value Reference Range Comments TOTAL PROTEIN (BEAKER) (test niyk=370) 7.9 gm/dL 6.0-8.3 Specimen slightly hemolyzed ALBUMIN (BEAKER) (test uixi=7780) 3.7 g/dL 3.5-5.0 Specimen slightly hemolyzed ALKALINE PHOSPHATASE (BEAKER) (test nhxo=567) 69 U/L 40-150 BILIRUBIN TOTAL (BEAKER) (test gjbz=091) 0.8 mg/dL 0.2-1.2 Specimen slightly hemolyzed SODIUM (BEAKER) (test lqss=026) 140 meq/L 136-145 POTASSIUM (BEAKER) (test huuh=604) 3.8 meq/L 3.5-5.1 Specimen slightly hemolyzed CHLORIDE (BEAKER) (test nrlc=217) 110 meq/L 98-107 CO2 (BEAKER) (test lraf=595) 20 meq/L 22-29 BLOOD UREA NITROGEN (BEAKER) (test tkqb=269) 2 mg/dL 7-21 CREATININE (BEAKER) (test ppbo=774) 0.69 mg/dL 0.57-1.25 Specimen slightly hemolyzed GLUCOSE RANDOM (BEAKER) (test zqqk=294) 95 mg/dL 70-105 CALCIUM (BEAKER) (test iheq=020) 8.4 mg/dL 8.4-10.2 AST (SGOT) (BEAKER) (test hnwg=217) 32 U/L 5-34 Specimen slightly hemolyzed ALT (SGPT) (BEAKER) (test bksv=852) 15 U/L 6-55 Specimen slightly hemolyzed EGFR (BEAKER) (test jwzt=4949) 119 mL/min/1.73 sq m ESTIMATED GFR IS NOT ACCURATE CREATININE CLEARANCE IN PREDICTING GLOMERULAR FILTRATION RATE. ESTIMATED GFR IS NOT APPLICABLE FOR DIALYSIS PATIENTS. RETICULOCYTE [id number] 12:23:00* Test Item Value Reference Range Comments RETICULOCYTE COUNT PCT (BEAKER) (test mnyi=914) 10.2 % 0.5-1.7 BASIC METABOLIC [id number] 10:26:00* Test Item Value Reference Range Comments SODIUM (BEAKER) (test ulpt=511) 136 meq/L 136-145 POTASSIUM (BEAKER) (test ijpm=694) 3.9 meq/L 3.5-5.1 Specimen slightly hemolyzed CHLORIDE (BEAKER) (test gfun=795) 109 meq/L 98-107 CO2 (BEAKER) (test dcrf=976) 20 meq/L 22-29 BLOOD UREA NITROGEN (BEAKER) (test wdjr=762) 6 mg/dL 7-21 CREATININE (BEAKER) (test owvk=712) 0.63 mg/dL 0.57-1.25 Specimen slightly hemolyzed GLUCOSE RANDOM (BEAKER) (test yjnk=071) 92 mg/dL 70-105 CALCIUM (BEAKER) (test noxh=112) 8.0 mg/dL 8.4-10.2 EGFR (BEAKER) (test qkmj=1218) 132 mL/min/1.73 sq m ESTIMATED GFR IS NOT ACCURATE CREATININE CLEARANCE IN PREDICTING GLOMERULAR FILTRATION RATE. ESTIMATED GFR IS NOT APPLICABLE FOR DIALYSIS PATIENTS. CBC W/PLT COUNT & AUTO [id number] 07:08:00* Test Item Value Reference Range Comments WHITE BLOOD CELL COUNT (BEAKER) (test olad=168) 12.4 K/ L 3.5-10.5 RED BLOOD CELL COUNT (BEAKER) (test jzre=309) 3.41 M/ L 3.93-5.22 HEMOGLOBIN (BEAKER) (test bbay=778) 9.3 GM/DL 11.2-15.7 HEMATOCRIT (BEAKER) (test syul=377) 29.4 % 34.1-44.9 MEAN CORPUSCULAR VOLUME (BEAKER) (test mgpr=490) 86.2 fL 79.4-94.8 MEAN CORPUSCULAR HEMOGLOBIN (BEAKER) (test qyag=094) 27.3 pg 25.6-32.2 MEAN CORPUSCULAR HEMOGLOBIN CONC (BEAKER) (test acpz=812) 31.6 GM/DL 32.2-35.5 RED CELL DISTRIBUTION WIDTH (BEAKER) (test zmby=459) 18.9 % 11.7-14.4 PLATELET COUNT (BEAKER) (test bqxi=579) 284 K/CU MM 150-450 MEAN PLATELET VOLUME (BEAKER) (test dqsa=252) 9.6 fL 9.4-12.3 NUCLEATED RED BLOOD CELLS (BEAKER) (test btrn=535) 0 /100 WBC 0-0 NEUTROPHILS RELATIVE PERCENT (BEAKER) (test xkfn=616) 67 % LYMPHOCYTES RELATIVE PERCENT (BEAKER) (test ebay=768) 25 % MONOCYTES RELATIVE PERCENT (BEAKER) (test zewq=899) 6 % EOSINOPHILS RELATIVE PERCENT (BEAKER) (test ekjo=435) 1 % BASOPHILS RELATIVE PERCENT (BEAKER) (test owxr=656) 1 % NEUTROPHILS ABSOLUTE COUNT (BEAKER) (test quwe=455) 8.30 K/ L 1.56-6.13 LYMPHOCYTES ABSOLUTE COUNT (BEAKER) (test mckt=536) 3.14 K/ L 1.18-3.74 MONOCYTES ABSOLUTE COUNT (BEAKER) (test gobv=533) 0.78 K/ L 0.24-0.36 EOSINOPHILS ABSOLUTE COUNT (BEAKER) (test frmn=297) 0.08 K/ L 0.04-0.36 BASOPHILS ABSOLUTE COUNT (BEAKER) (test plej=398) 0.11 K/ L 0.01-0.08 IMMATURE GRANULOCYTES-RELATIVE PERCENT (BEAKER) (test jmvm=8055) 0 % 0-1 RETICULOCYTE [id number] 07:07:00* Test Item Value Reference Range Comments RETICULOCYTE COUNT PCT (BEAKER) (test nfen=737) 3.5 % 0.5-1.7 HEMOGLOBIN AND [id number] 22:26:00* Test Item Value Reference Range Comments HEMOGLOBIN (BEAKER) (test mvua=325) 9.6 GM/DL 11.2-15.7 HEMATOCRIT (BEAKER) (test xtmf=689) 29.4 % 34.1-44.9 CREATINE KINASE (CK), TOTAL AND [id number] 17:19:00* Test Item Value Reference Range Comments CREATINE KINASE TOTAL (BEAKER) (test fpec=036) 25 U/L 29-200 CREATINE KINASE-MB (BEAKER) (test avnk=681) 0.2 ng/mL 0.0-6.6 CREATINE KINASE-MB INDEX (BEAKER) (test abfi=996) 0.8 % CK-MB Reference Range:<6.7 Normal6.7-10.0 Borderline>10.0 Abnormal TROPONIN [id number] 17:19:00* Test Item Value Reference Range Comments TROPONIN I (BEAKER) (test cjht=500) < ng/mL 0.00-0.03 Troponin I (TnI) levels must be interpreted in the context of the presenting sym ptoms and the clinical findings. Elevated TnI levels indicate myocardial damage, but are not specific for ischemic heart disease. Elevated TnI levels are seen in patients with other cardiac conditions (including myocarditis and congestive h eart failure), and slight TnI elevations occur in patients with other conditions , including sepsis, renal failure, acidosis, acute neurological disease, and per sistent tachyarrhythmia.B-TYPE NATRIURETIC FACTOR (BNP)2017-06-13 17:17:00* Test Item Value Reference Range Comments B-TYPE NATRIURETIC PEPTIDE (BEAKER) (test tmrm=699) 13 pg/mL 0-100 [id number] 17:12:00* Test Item Value Reference Range Comments MAGNESIUM (BEAKER) (test zpoj=695) 2.3 mg/dL 1.6-2.6 Specimen slightly hemolyzed BASIC METABOLIC [id number] 17:12:00* Test Item Value Reference Range Comments SODIUM (BEAKER) (test drkg=939) 140 meq/L 136-145 POTASSIUM (BEAKER) (test oyyj=641) 4.0 meq/L 3.5-5.1 Specimen slightly hemolyzed CHLORIDE (BEAKER) (test vzdi=828) 110 meq/L 98-107 CO2 (BEAKER) (test rtwa=898) 19 meq/L 22-29 BLOOD UREA NITROGEN (BEAKER) (test xzfl=713) 7 mg/dL 7-21 CREATININE (BEAKER) (test lvse=554) 0.69 mg/dL 0.57-1.25 Specimen slightly hemolyzed GLUCOSE RANDOM (BEAKER) (test ehiq=704) 111 mg/dL 70-105 CALCIUM (BEAKER) (test xqvw=099) 8.8 mg/dL 8.4-10.2 EGFR (BEAKER) (test nazu=5846) 119 mL/min/1.73 sq m ESTIMATED GFR IS NOT ACCURATE CREATININE CLEARANCE IN PREDICTING GLOMERULAR FILTRATION RATE. ESTIMATED GFR IS NOT APPLICABLE FOR DIALYSIS PATIENTS. HEPATIC FUNCTION [id number] 17:12:00* Test Item Value Reference Range Comments TOTAL PROTEIN (BEAKER) (test czir=736) 9.0 gm/dL 6.0-8.3 Specimen slightly hemolyzed ALBUMIN (BEAKER) (test qlgq=7633) 4.4 g/dL 3.5-5.0 Specimen slightly hemolyzed BILIRUBIN TOTAL (BEAKER) (test eyrs=110) 1.2 mg/dL 0.2-1.2 Specimen slightly hemolyzed BILIRUBIN DIRECT (BEAKER) (test ucbk=734) 0.4 mg/dL 0.1-0.5 Specimen slightly hemolyzed ALKALINE PHOSPHATASE (BEAKER) (test upfy=675) 59 U/L 40-150 AST (SGOT) (BEAKER) (test igrg=122) 31 U/L 5-34 Specimen slightly hemolyzed ALT (SGPT) (BEAKER) (test cxiu=365) 17 U/L 6-55 Specimen slightly hemolyzed [id number] 17:12:00* Test Item Value Reference Range Comments AMYLASE (BEAKER) (test rmrp=510) 75 U/L 25-125 Specimen slightly hemolyzed [id number] 17:12:00* Test Item Value Reference Range Comments LIPASE (BEAKER) (test gaqw=698) 40 U/L 8-78 RETICULOCYTE [id number] 16:09:00* Test Item Value Reference Range Comments RETICULOCYTE COUNT PCT (BEAKER) (test pmbj=848) 4.0 % 0.5-1.7 [id number] 16:07:00* Test Item Value Reference Range Comments PROTIME (BEAKER) (test sjhs=055) 14.6 seconds 11.7-14.7 INR (BEAKER) (test yumb=603) 1.2 <=5.9 PARTIAL THROMBOPLASTIN TIME (BEAKER) (test cgwm=238) 30.7 seconds 22.5-36.0 RECOMMENDED COUMADIN/WARFARIN INR THERAPY RANGESSTANDARD DOSE: 2.0 - 3.0 Inclu fern: PROPHYLAXIS for venous thrombosis, systemic embolization; TREATMENT for dexter ous thrombosis and/or pulmonary embolus.HIGH RISK: Target INR is 2.5-3.5 for pat ients with mechanical heart valves.CBC W/PLT COUNT & AUTO [id number] 15:59:00* Test Item Value Reference Range Comments WHITE BLOOD CELL COUNT (BEAKER) (test lcoj=454) 6.9 K/ L 3.5-10.5 RED BLOOD CELL COUNT (BEAKER) (test sddc=953) 3.95 M/ L 3.93-5.22 HEMOGLOBIN (BEAKER) (test gazs=914) 11.1 GM/DL 11.2-15.7 HEMATOCRIT (BEAKER) (test bllb=391) 33.4 % 34.1-44.9 MEAN CORPUSCULAR VOLUME (BEAKER) (test mlrz=488) 84.6 fL 79.4-94.8 MEAN CORPUSCULAR HEMOGLOBIN (BEAKER) (test rund=057) 28.1 pg 25.6-32.2 MEAN CORPUSCULAR HEMOGLOBIN CONC (BEAKER) (test uvpy=684) 33.2 GM/DL 32.2-35.5 RED CELL DISTRIBUTION WIDTH (BEAKER) (test zzib=342) 18.5 % 11.7-14.4 PLATELET COUNT (BEAKER) (test peba=321) 359 K/CU MM 150-450 MEAN PLATELET VOLUME (BEAKER) (test qwik=512) 9.3 fL 9.4-12.3 NUCLEATED RED BLOOD CELLS (BEAKER) (test zfiu=270) 0 /100 WBC 0-0 NEUTROPHILS RELATIVE PERCENT (BEAKER) (test ecmo=193) 52 % LYMPHOCYTES RELATIVE PERCENT (BEAKER) (test wtey=167) 37 % MONOCYTES RELATIVE PERCENT (BEAKER) (test pzcl=795) 10 % EOSINOPHILS RELATIVE PERCENT (BEAKER) (test sqny=113) 0 % BASOPHILS RELATIVE PERCENT (BEAKER) (test jumx=181) 1 % NEUTROPHILS ABSOLUTE COUNT (BEAKER) (test kych=153) 3.57 K/ L 1.56-6.13 LYMPHOCYTES ABSOLUTE COUNT (BEAKER) (test yjct=365) 2.55 K/ L 1.18-3.74 MONOCYTES ABSOLUTE COUNT (BEAKER) (test lrpz=525) 0.67 K/ L 0.24-0.36 EOSINOPHILS ABSOLUTE COUNT (BEAKER) (test tngf=662) 0.01 K/ L 0.04-0.36 BASOPHILS ABSOLUTE COUNT (BEAKER) (test cpvr=757) 0.08 K/ L 0.01-0.08 IMMATURE GRANULOCYTES-RELATIVE PERCENT (BEAKER) (test jaor=8690) 0 % 0-1 RAD, CHEST, 2 [id number] 14:48:00Reason for exam:->SICKLE CELL PAIN CRISISReason for exam:->ABDOMINAL PAINReason for exam:->LEG PAINReason for exam:->Chest painShould this be performed at the bedside?->NoFINAL REPORT TECHNIQUE: Frontal and lateral chest radiographs dated 06/13/2017. CLINICAL HISTORY: Sickle cell crisis COMPARISON STUDY: Chest radiograph dated 04/02/2017 FINDINGS: Right-sided MediPort is unchanged. Lungs are clear. No pleural effusion or pneumothorax. Cardiomediastinal silhouette is normal in size. No pulmonary edema. No bone or soft tissue abnormalities are seen. IMPRESSION: Clear lungs. Signed: Surinder Barnes Verified Date /Time: 06/13/2017 14:48:59 Reading Location: [facility] Radiology Reading Room Faustina ctronically signed by: SURINDER BARNES on 06/13/2017 02:48 PM CBC (HEMOGRAM ONLY)2017-05-08 07:14:00* Test Item Value Reference Range Comments WHITE BLOOD CELL COUNT (BEAKER) (test hdvk=769) 11.5 K/ L 3.5-10.5 RED BLOOD CELL COUNT (BEAKER) (test mqwq=983) 2.70 M/ L 3.93-5.22 HEMOGLOBIN (BEAKER) (test ieoc=004) 7.6 GM/DL 11.2-15.7 HEMATOCRIT (BEAKER) (test isjg=327) 24.4 % 34.1-44.9 MEAN CORPUSCULAR VOLUME (BEAKER) (test vbbj=664) 90.4 fL 79.4-94.8 MEAN CORPUSCULAR HEMOGLOBIN (BEAKER) (test tkls=403) 28.1 pg 25.6-32.2 MEAN CORPUSCULAR HEMOGLOBIN CONC (BEAKER) (test wkos=447) 31.1 GM/DL 32.2-35.5 RED CELL DISTRIBUTION WIDTH (BEAKER) (test lhro=816) 25.3 % 11.7-14.4 PLATELET COUNT (BEAKER) (test fuer=049) 333 K/CU MM 150-450 MEAN PLATELET VOLUME (BEAKER) (test bljc=310) 9.9 fL 9.4-12.3 NUCLEATED RED BLOOD CELLS (BEAKER) (test oyjy=350) 39 /100 WBC 0-0 BASIC METABOLIC [id number] 07:09:00* Test Item Value Reference Range Comments SODIUM (BEAKER) (test ooiv=931) 140 meq/L 136-145 POTASSIUM (BEAKER) (test twxe=729) 3.5 meq/L 3.5-5.1 Specimen slightly hemolyzed CHLORIDE (BEAKER) (test vwzp=058) 106 meq/L 98-107 CO2 (BEAKER) (test rvax=685) 27 meq/L 22-29 BLOOD UREA NITROGEN (BEAKER) (test ywjo=790) 5 mg/dL 7-21 CREATININE (BEAKER) (test nhbf=098) 0.60 mg/dL 0.57-1.25 Specimen slightly hemolyzed GLUCOSE RANDOM (BEAKER) (test qaar=723) 95 mg/dL 70-105 CALCIUM (BEAKER) (test jkyy=938) 8.3 mg/dL 8.4-10.2 EGFR (BEAKER) (test ydxy=5274) 140 mL/min/1.73 sq m ESTIMATED GFR IS NOT ACCURATE CREATININE CLEARANCE IN PREDICTING GLOMERULAR FILTRATION RATE. ESTIMATED GFR IS NOT APPLICABLE FOR DIALYSIS PATIENTS. CBC (HEMOGRAM ONLY)2017-05-07 07:30:00* Test Item Value Reference Range Comments WHITE BLOOD CELL COUNT (BEAKER) (test ymuz=565) 16.5 K/ L 3.5-10.5 RED BLOOD CELL COUNT (BEAKER) (test gdxv=288) 2.62 M/ L 3.93-5.22 HEMOGLOBIN (BEAKER) (test jdtb=688) 7.4 GM/DL 11.2-15.7 HEMATOCRIT (BEAKER) (test mswl=360) 23.4 % 34.1-44.9 MEAN CORPUSCULAR VOLUME (BEAKER) (test odum=460) 89.3 fL 79.4-94.8 MEAN CORPUSCULAR HEMOGLOBIN (BEAKER) (test qzwl=377) 28.2 pg 25.6-32.2 MEAN CORPUSCULAR HEMOGLOBIN CONC (BEAKER) (test texa=123) 31.6 GM/DL 32.2-35.5 RED CELL DISTRIBUTION WIDTH (BEAKER) (test hhry=701) 24.3 % 11.7-14.4 PLATELET COUNT (BEAKER) (test kaps=892) 342 K/CU MM 150-450 MEAN PLATELET VOLUME (BEAKER) (test waxm=307) 9.6 fL 9.4-12.3 NUCLEATED RED BLOOD CELLS (BEAKER) (test tamu=122) 45 /100 WBC 0-0 BASIC METABOLIC [id number] 07:03:00* Test Item Value Reference Range Comments SODIUM (BEAKER) (test helj=181) 138 meq/L 136-145 POTASSIUM (BEAKER) (test tkuw=090) 3.8 meq/L 3.5-5.1 Specimen slightly hemolyzed CHLORIDE (BEAKER) (test bdrg=405) 104 meq/L 98-107 CO2 (BEAKER) (test ecat=066) 26 meq/L 22-29 BLOOD UREA NITROGEN (BEAKER) (test jidg=494) 3 mg/dL 7-21 CREATININE (BEAKER) (test fzzp=732) 0.59 mg/dL 0.57-1.25 Specimen slightly hemolyzed GLUCOSE RANDOM (BEAKER) (test vlno=502) 96 mg/dL 70-105 CALCIUM (BEAKER) (test trbo=119) 8.5 mg/dL 8.4-10.2 EGFR (BEAKER) (test icik=2581) 142 mL/min/1.73 sq m ESTIMATED GFR IS NOT ACCURATE CREATININE CLEARANCE IN PREDICTING GLOMERULAR FILTRATION RATE. ESTIMATED GFR IS NOT APPLICABLE FOR DIALYSIS PATIENTS. CBC (HEMOGRAM ONLY)2017-05-06 08:08:00* Test Item Value Reference Range Comments WHITE BLOOD CELL COUNT (BEAKER) (test wydf=046) 17.3 K/ L 3.5-10.5 RED BLOOD CELL COUNT (BEAKER) (test ywkg=593) 2.79 M/ L 3.93-5.22 HEMOGLOBIN (BEAKER) (test ubhp=531) 7.7 GM/DL 11.2-15.7 HEMATOCRIT (BEAKER) (test lhii=738) 24.6 % 34.1-44.9 MEAN CORPUSCULAR VOLUME (BEAKER) (test zfto=430) 88.2 fL 79.4-94.8 MEAN CORPUSCULAR HEMOGLOBIN (BEAKER) (test mzvs=771) 27.6 pg 25.6-32.2 MEAN CORPUSCULAR HEMOGLOBIN CONC (BEAKER) (test wgpb=041) 31.3 GM/DL 32.2-35.5 RED CELL DISTRIBUTION WIDTH (BEAKER) (test wssr=896) 24.3 % 11.7-14.4 PLATELET COUNT (BEAKER) (test cyqp=101) 382 K/CU MM 150-450 MEAN PLATELET VOLUME (BEAKER) (test fvjl=861) 10.3 fL 9.4-12.3 NUCLEATED RED BLOOD CELLS (BEAKER) (test qfrc=232) 26 /100 WBC 0-0 BASIC METABOLIC [id number] 07:42:00* Test Item Value Reference Range Comments SODIUM (BEAKER) (test hfcl=139) 139 meq/L 136-145 POTASSIUM (BEAKER) (test hewg=614) 3.6 meq/L 3.5-5.1 Specimen slightly hemolyzed CHLORIDE (BEAKER) (test lvyb=627) 106 meq/L 98-107 CO2 (BEAKER) (test ewta=463) 24 meq/L 22-29 BLOOD UREA NITROGEN (BEAKER) (test oeja=777) 3 mg/dL 7-21 CREATININE (BEAKER) (test oraq=858) 0.64 mg/dL 0.57-1.25 Specimen slightly hemolyzed GLUCOSE RANDOM (BEAKER) (test ahuk=205) 112 mg/dL 70-105 CALCIUM (BEAKER) (test lzhw=236) 8.2 mg/dL 8.4-10.2 EGFR (BEAKER) (test tmlj=6435) 130 mL/min/1.73 sq m ESTIMATED GFR IS NOT ACCURATE CREATININE CLEARANCE IN PREDICTING GLOMERULAR FILTRATION RATE. ESTIMATED GFR IS NOT APPLICABLE FOR DIALYSIS PATIENTS. Specimen slightly ictericBASIC METABOLIC [id number] 07:00:00* Test Item Value Reference Range Comments SODIUM (BEAKER) (test pbiq=052) 139 meq/L 136-145 POTASSIUM (BEAKER) (test vdhc=952) 3.5 meq/L 3.5-5.1 Specimen slightly hemolyzed CHLORIDE (BEAKER) (test noku=921) 107 meq/L 98-107 CO2 (BEAKER) (test cpmh=563) 24 meq/L 22-29 BLOOD UREA NITROGEN (BEAKER) (test unhf=361) 3 mg/dL 7-21 CREATININE (BEAKER) (test rosv=637) 0.59 mg/dL 0.57-1.25 Specimen slightly hemolyzed GLUCOSE RANDOM (BEAKER) (test ujpq=624) 114 mg/dL 70-105 CALCIUM (BEAKER) (test ywce=329) 8.4 mg/dL 8.4-10.2 EGFR (BEAKER) (test tqfa=3668) 142 mL/min/1.73 sq m ESTIMATED GFR IS NOT ACCURATE CREATININE CLEARANCE IN PREDICTING GLOMERULAR FILTRATION RATE. ESTIMATED GFR IS NOT APPLICABLE FOR DIALYSIS PATIENTS. Specimen slightly ictericCBC (HEMOGRAM ONLY)2017-05-05 06:48:00* Test Item Value Reference Range Comments WHITE BLOOD CELL COUNT (BEAKER) (test jubf=980) 19.1 K/ L 3.5-10.5 RED BLOOD CELL COUNT (BEAKER) (test vujp=681) 2.41 M/ L 3.93-5.22 HEMOGLOBIN (BEAKER) (test fmcr=651) 6.5 GM/DL 11.2-15.7 HEMATOCRIT (BEAKER) (test tekc=930) 20.8 % 34.1-44.9 MEAN CORPUSCULAR VOLUME (BEAKER) (test wceh=902) 86.3 fL 79.4-94.8 MEAN CORPUSCULAR HEMOGLOBIN (BEAKER) (test euzp=348) 27.0 pg 25.6-32.2 MEAN CORPUSCULAR HEMOGLOBIN CONC (BEAKER) (test toau=427) 31.3 GM/DL 32.2-35.5 RED CELL DISTRIBUTION WIDTH (BEAKER) (test nskd=149) 25.4 % 11.7-14.4 PLATELET COUNT (BEAKER) (test bduz=396) 333 K/CU MM 150-450 MEAN PLATELET VOLUME (BEAKER) (test fxnk=873) 9.9 fL 9.4-12.3 NUCLEATED RED BLOOD CELLS (BEAKER) (test cpkv=211) 10 /100 WBC 0-0 BASIC METABOLIC [id number] 06:43:00* Test Item Value Reference Range Comments SODIUM (BEAKER) (test bwue=240) 139 meq/L 136-145 POTASSIUM (BEAKER) (test lnac=273) 3.9 meq/L 3.5-5.1 Specimen slightly hemolyzed CHLORIDE (BEAKER) (test deio=705) 106 meq/L 98-107 CO2 (BEAKER) (test ykqc=208) 25 meq/L 22-29 BLOOD UREA NITROGEN (BEAKER) (test oczf=606) 4 mg/dL 7-21 CREATININE (BEAKER) (test ioft=068) 0.64 mg/dL 0.57-1.25 Specimen slightly hemolyzed GLUCOSE RANDOM (BEAKER) (test ugev=695) 116 mg/dL 70-105 CALCIUM (BEAKER) (test ylbp=037) 8.6 mg/dL 8.4-10.2 EGFR (BEAKER) (test oxtr=1549) 130 mL/min/1.73 sq m ESTIMATED GFR IS NOT ACCURATE CREATININE CLEARANCE IN PREDICTING GLOMERULAR FILTRATION RATE. ESTIMATED GFR IS NOT APPLICABLE FOR DIALYSIS PATIENTS. CBC (HEMOGRAM ONLY)2017-05-04 06:41:00* Test Item Value Reference Range Comments WHITE BLOOD CELL COUNT (BEAKER) (test kqtm=253) 16.5 K/ L 3.5-10.5 RED BLOOD CELL COUNT (BEAKER) (test wklc=516) 2.54 M/ L 3.93-5.22 HEMOGLOBIN (BEAKER) (test ejhl=354) 6.6 GM/DL 11.2-15.7 HEMATOCRIT (BEAKER) (test dzdq=054) 21.2 % 34.1-44.9 MEAN CORPUSCULAR VOLUME (BEAKER) (test jpam=960) 83.5 fL 79.4-94.8 MEAN CORPUSCULAR HEMOGLOBIN (BEAKER) (test iamp=264) 26.0 pg 25.6-32.2 MEAN CORPUSCULAR HEMOGLOBIN CONC (BEAKER) (test apps=212) 31.1 GM/DL 32.2-35.5 RED CELL DISTRIBUTION WIDTH (BEAKER) (test ntyo=819) 22.5 % 11.7-14.4 PLATELET COUNT (BEAKER) (test epgy=821) 315 K/CU MM 150-450 MEAN PLATELET VOLUME (BEAKER) (test jtyt=352) 9.7 fL 9.4-12.3 NUCLEATED RED BLOOD CELLS (BEAKER) (test difr=547) 1 /100 WBC 0-0 CBC (HEMOGRAM ONLY)2017-05-03 08:20:00* Test Item Value Reference Range Comments WHITE BLOOD CELL COUNT (BEAKER) (test gdai=938) 13.6 K/ L 3.5-10.5 RED BLOOD CELL COUNT (BEAKER) (test dvth=282) 2.56 M/ L 3.93-5.22 HEMOGLOBIN (BEAKER) (test bypd=769) 6.6 GM/DL 11.2-15.7 HEMATOCRIT (BEAKER) (test mhhm=182) 21.2 % 34.1-44.9 MEAN CORPUSCULAR VOLUME (BEAKER) (test cueb=308) 82.8 fL 79.4-94.8 MEAN CORPUSCULAR HEMOGLOBIN (BEAKER) (test ochs=565) 25.8 pg 25.6-32.2 MEAN CORPUSCULAR HEMOGLOBIN CONC (BEAKER) (test jayg=499) 31.1 GM/DL 32.2-35.5 RED CELL DISTRIBUTION WIDTH (BEAKER) (test ubrb=421) 21.4 % 11.7-14.4 PLATELET COUNT (BEAKER) (test qgpm=028) 267 K/CU MM 150-450 MEAN PLATELET VOLUME (BEAKER) (test axxw=995) 9.7 fL 9.4-12.3 NUCLEATED RED BLOOD CELLS (BEAKER) (test uydw=432) 0 /100 WBC 0-0 BASIC METABOLIC [id number] 07:38:00* Test Item Value Reference Range Comments SODIUM (BEAKER) (test keht=924) 138 meq/L 136-145 POTASSIUM (BEAKER) (test jaou=345) 3.8 meq/L 3.5-5.1 Specimen slightly hemolyzed CHLORIDE (BEAKER) (test wpgw=690) 106 meq/L 98-107 CO2 (BEAKER) (test ljkn=559) 24 meq/L 22-29 BLOOD UREA NITROGEN (BEAKER) (test unam=159) 6 mg/dL 7-21 CREATININE (BEAKER) (test ziva=456) 0.64 mg/dL 0.57-1.25 Specimen slightly hemolyzed GLUCOSE RANDOM (BEAKER) (test oldb=039) 103 mg/dL 70-105 CALCIUM (BEAKER) (test ysgn=397) 8.4 mg/dL 8.4-10.2 EGFR (BEAKER) (test wocp=9079) 130 mL/min/1.73 sq m ESTIMATED GFR IS NOT ACCURATE CREATININE CLEARANCE IN PREDICTING GLOMERULAR FILTRATION RATE. ESTIMATED GFR IS NOT APPLICABLE FOR DIALYSIS PATIENTS. Specimen slightly ictericBASIC METABOLIC [id number] 07:44:00* Test Item Value Reference Range Comments SODIUM (BEAKER) (test uaxb=784) 138 meq/L 136-145 POTASSIUM (BEAKER) (test zsgb=604) 3.9 meq/L 3.5-5.1 Specimen slightly hemolyzed CHLORIDE (BEAKER) (test bxcb=928) 107 meq/L 98-107 CO2 (BEAKER) (test gakg=870) 24 meq/L 22-29 BLOOD UREA NITROGEN (BEAKER) (test tpug=235) 8 mg/dL 7-21 CREATININE (BEAKER) (test ctre=229) 0.69 mg/dL 0.57-1.25 Specimen slightly hemolyzed GLUCOSE RANDOM (BEAKER) (test nqmf=960) 82 mg/dL 70-105 CALCIUM (BEAKER) (test pvkg=266) 8.1 mg/dL 8.4-10.2 EGFR (BEAKER) (test bwex=4432) 119 mL/min/1.73 sq m ESTIMATED GFR IS NOT ACCURATE CREATININE CLEARANCE IN PREDICTING GLOMERULAR FILTRATION RATE. ESTIMATED GFR IS NOT APPLICABLE FOR DIALYSIS PATIENTS. CBC (HEMOGRAM ONLY)2017-05-02 07:29:00* Test Item Value Reference Range Comments WHITE BLOOD CELL COUNT (BEAKER) (test egku=909) 10.6 K/ L 3.5-10.5 RED BLOOD CELL COUNT (BEAKER) (test vorl=380) 2.78 M/ L 3.93-5.22 HEMOGLOBIN (BEAKER) (test ltbr=097) 7.2 GM/DL 11.2-15.7 HEMATOCRIT (BEAKER) (test rviq=139) 23.4 % 34.1-44.9 MEAN CORPUSCULAR VOLUME (BEAKER) (test nfma=868) 84.2 fL 79.4-94.8 MEAN CORPUSCULAR HEMOGLOBIN (BEAKER) (test stjy=872) 25.9 pg 25.6-32.2 MEAN CORPUSCULAR HEMOGLOBIN CONC (BEAKER) (test iihn=269) 30.8 GM/DL 32.2-35.5 RED CELL DISTRIBUTION WIDTH (BEAKER) (test eddf=583) 21.0 % 11.7-14.4 PLATELET COUNT (BEAKER) (test psuw=011) 281 K/CU MM 150-450 MEAN PLATELET VOLUME (BEAKER) (test uuxi=244) 9.1 fL 9.4-12.3 NUCLEATED RED BLOOD CELLS (BEAKER) (test osbq=004) 0 /100 WBC 0-0 URINALYSIS W/ [id number] 12:10:00* Test Item Value Reference Range Comments COLOR (BEAKER) (test ebfi=488) Yellow CLARITY (BEAKER) (test emsj=863) Clear SPECIFIC GRAVITY UA (BEAKER) (test aqpw=918) 1.011 1.001-1.035 PH UA (BEAKER) (test lnhi=830) 5.5 5.0-8.0 PROTEIN UA (BEAKER) (test hvcw=518) Negative Negative GLUCOSE UA (BEAKER) (test ovjx=041) Negative Negative KETONES UA (BEAKER) (test vvzk=631) Negative Negative BILIRUBIN UA (BEAKER) (test njvx=261) Negative Negative BLOOD UA (BEAKER) (test rabk=184) Negative Negative NITRITE UA (BEAKER) (test qseo=992) Negative Negative LEUKOCYTE ESTERASE UA (BEAKER) (test recv=047) Negative Negative UROBILINOGEN UA (BEAKER) (test rehr=527) 2.0 mg/dL 0.2-1.0 RBC UA (BEAKER) (test vgpr=992) 1 /HPF WBC UA (BEAKER) (test qwmc=715) 1 /HPF MUCUS (BEAKER) (test iseq=5009) Occasional SQUAMOUS EPITHELIAL (BEAKER) (test dxra=913) 2 /HPF CRYSTALS, URINE (BEAKER) (test sstm=4198) Rare SOURCE(BEAKER) (test iydc=1858) Urine, Clean Catch COMPREHENSIVE METABOLIC [id number] 11:43:00* Test Item Value Reference Range Comments TOTAL PROTEIN (BEAKER) (test qefz=105) 9.1 gm/dL 6.0-8.3 Specimen slightly hemolyzed ALBUMIN (BEAKER) (test uwje=8401) 4.0 g/dL 3.5-5.0 Specimen slightly hemolyzed ALKALINE PHOSPHATASE (BEAKER) (test sdzr=315) 80 U/L 40-150 BILIRUBIN TOTAL (BEAKER) (test qkxi=363) 1.5 mg/dL 0.2-1.2 Specimen slightly hemolyzed SODIUM (BEAKER) (test fsmf=036) 139 meq/L 136-145 POTASSIUM (BEAKER) (test rjdo=703) 4.0 meq/L 3.5-5.1 Specimen slightly hemolyzed CHLORIDE (BEAKER) (test jzwr=085) 108 meq/L 98-107 CO2 (BEAKER) (test ywtf=535) 21 meq/L 22-29 BLOOD UREA NITROGEN (BEAKER) (test cjmt=562) 7 mg/dL 7-21 CREATININE (BEAKER) (test kmjo=506) 0.71 mg/dL 0.57-1.25 Specimen slightly hemolyzed GLUCOSE RANDOM (BEAKER) (test oize=659) 102 mg/dL 70-105 CALCIUM (BEAKER) (test yqmv=345) 8.9 mg/dL 8.4-10.2 AST (SGOT) (BEAKER) (test tjmr=199) 33 U/L 5-34 Specimen slightly hemolyzed ALT (SGPT) (BEAKER) (test mxhz=346) 17 U/L 6-55 Specimen slightly hemolyzed EGFR (BEAKER) (test gobv=7690) 115 mL/min/1.73 sq m ESTIMATED GFR IS NOT ACCURATE CREATININE CLEARANCE IN PREDICTING GLOMERULAR FILTRATION RATE. ESTIMATED GFR IS NOT APPLICABLE FOR DIALYSIS PATIENTS. CBC W/PLT COUNT & AUTO [id number] 11:15:00* Test Item Value Reference Range Comments WHITE BLOOD CELL COUNT (BEAKER) (test rtwe=606) 7.8 K/ L 3.5-10.5 RED BLOOD CELL COUNT (BEAKER) (test woqo=475) 3.53 M/ L 3.93-5.22 HEMOGLOBIN (BEAKER) (test vopr=428) 9.2 GM/DL 11.2-15.7 HEMATOCRIT (BEAKER) (test kzwr=021) 29.2 % 34.1-44.9 MEAN CORPUSCULAR VOLUME (BEAKER) (test wfmq=197) 82.7 fL 79.4-94.8 MEAN CORPUSCULAR HEMOGLOBIN (BEAKER) (test lrsm=493) 26.1 pg 25.6-32.2 MEAN CORPUSCULAR HEMOGLOBIN CONC (BEAKER) (test lumc=218) 31.5 GM/DL 32.2-35.5 RED CELL DISTRIBUTION WIDTH (BEAKER) (test jzlj=498) 21.2 % 11.7-14.4 PLATELET COUNT (BEAKER) (test cues=933) 372 K/CU MM 150-450 MEAN PLATELET VOLUME (BEAKER) (test ndhz=223) 9.0 fL 9.4-12.3 NUCLEATED RED BLOOD CELLS (BEAKER) (test wwjl=758) 0 /100 WBC 0-0 NEUTROPHILS RELATIVE PERCENT (BEAKER) (test uuaw=274) 59 % LYMPHOCYTES RELATIVE PERCENT (BEAKER) (test sqab=256) 33 % MONOCYTES RELATIVE PERCENT (BEAKER) (test gius=318) 7 % EOSINOPHILS RELATIVE PERCENT (BEAKER) (test dhhu=412) 0 % BASOPHILS RELATIVE PERCENT (BEAKER) (test adhq=468) 1 % NEUTROPHILS ABSOLUTE COUNT (BEAKER) (test puzo=626) 4.54 K/ L 1.56-6.13 LYMPHOCYTES ABSOLUTE COUNT (BEAKER) (test fhhs=619) 2.56 K/ L 1.18-3.74 MONOCYTES ABSOLUTE COUNT (BEAKER) (test thyd=810) 0.53 K/ L 0.24-0.36 EOSINOPHILS ABSOLUTE COUNT (BEAKER) (test vovn=263) 0.02 K/ L 0.04-0.36 BASOPHILS ABSOLUTE COUNT (BEAKER) (test ewzo=562) 0.08 K/ L 0.01-0.08 IMMATURE GRANULOCYTES-RELATIVE PERCENT (BEAKER) (test yulp=9546) 0 % 0-1 RETICULOCYTE [id number] 11:15:00* Test Item Value Reference Range Comments RETICULOCYTE COUNT PCT (BEAKER) (test pdik=345) 8.0 % 0.5-1.7 SCREEN, [id number] 11:01:00* Test Item Value Reference Range Comments TEST URINE (BEAKER) (test vspx=196) Negative POCT-LACTIC ACID, [id number] 10:47:00* Test Item Value Reference Range Comments POC-LACTIC ACID, VENOUS (BEAKER) (test oaur=2928) 1.5 mmol/L 0.9-1.7 TESTED AT [facility] [address] [facility] [address] BLOOD [id number] 11:00:00* Test Item Value Reference Range Comments CULTURE (BEAKER) (test yehd=3664) No growth in 5 days BLOOD [id number] 11:00:00* Test Item Value Reference Range Comments CULTURE (BEAKER) (test lezp=0546) No growth in 5 days BASIC METABOLIC [id number] 02:52:00* Test Item Value Reference Range Comments SODIUM (BEAKER) (test jezy=568) 138 meq/L 136-145 POTASSIUM (BEAKER) (test eezu=137) 3.7 meq/L 3.5-5.1 Specimen slightly hemolyzed CHLORIDE (BEAKER) (test tblt=509) 107 meq/L 98-107 CO2 (BEAKER) (test qghe=086) 23 meq/L 22-29 BLOOD UREA NITROGEN (BEAKER) (test mxgj=224) 5 mg/dL 7-21 CREATININE (BEAKER) (test geji=149) 0.57 mg/dL 0.57-1.25 Specimen slightly hemolyzed GLUCOSE RANDOM (BEAKER) (test qmaq=256) 126 mg/dL 70-105 CALCIUM (BEAKER) (test avbj=153) 8.2 mg/dL 8.4-10.2 EGFR (BEAKER) (test ahfk=8404) 148 mL/min/1.73 sq m ESTIMATED GFR IS NOT ACCURATE CREATININE CLEARANCE IN PREDICTING GLOMERULAR FILTRATION RATE. ESTIMATED GFR IS NOT APPLICABLE FOR DIALYSIS PATIENTS. CBC W/PLT COUNT & AUTO [id number] 02:42:00* Test Item Value Reference Range Comments WHITE BLOOD CELL COUNT (BEAKER) (test qgle=482) 8.7 K/ L 3.5-10.5 RED BLOOD CELL COUNT (BEAKER) (test ldar=624) 2.89 M/ L 3.93-5.22 HEMOGLOBIN (BEAKER) (test bfdi=823) 7.6 GM/DL 11.2-15.7 HEMATOCRIT (BEAKER) (test fluh=104) 24.0 % 34.1-44.9 MEAN CORPUSCULAR VOLUME (BEAKER) (test jqct=577) 83.0 fL 79.4-94.8 MEAN CORPUSCULAR HEMOGLOBIN (BEAKER) (test yage=076) 26.3 pg 25.6-32.2 MEAN CORPUSCULAR HEMOGLOBIN CONC (BEAKER) (test zxuh=661) 31.7 GM/DL 32.2-35.5 RED CELL DISTRIBUTION WIDTH (BEAKER) (test qdnm=443) 18.6 % 11.7-14.4 PLATELET COUNT (BEAKER) (test huon=459) 321 K/CU MM 150-450 MEAN PLATELET VOLUME (BEAKER) (test ypcq=469) 9.3 fL 9.4-12.3 NUCLEATED RED BLOOD CELLS (BEAKER) (test bzev=949) 0 /100 WBC 0-0 NEUTROPHILS RELATIVE PERCENT (BEAKER) (test escv=736) 52 % LYMPHOCYTES RELATIVE PERCENT (BEAKER) (test bfwc=431) 32 % MONOCYTES RELATIVE PERCENT (BEAKER) (test moxu=757) 12 % EOSINOPHILS RELATIVE PERCENT (BEAKER) (test lnlr=664) 3 % BASOPHILS RELATIVE PERCENT (BEAKER) (test pwzv=831) 1 % NEUTROPHILS ABSOLUTE COUNT (BEAKER) (test kgmx=930) 4.59 K/ L 1.56-6.13 LYMPHOCYTES ABSOLUTE COUNT (BEAKER) (test qnpx=151) 2.81 K/ L 1.18-3.74 MONOCYTES ABSOLUTE COUNT (BEAKER) (test bslf=710) 1.03 K/ L 0.24-0.36 EOSINOPHILS ABSOLUTE COUNT (BEAKER) (test mrjf=781) 0.22 K/ L 0.04-0.36 BASOPHILS ABSOLUTE COUNT (BEAKER) (test xeda=430) 0.05 K/ L 0.01-0.08 IMMATURE GRANULOCYTES-RELATIVE PERCENT (BEAKER) (test iayi=0342) 1 % 0-1 TROPONIN [id number] 06:22:00* Test Item Value Reference Range Comments TROPONIN I (BEAKER) (test srus=190) 0.01 ng/mL 0.00-0.03 Troponin I (TnI) levels must be interpreted in the context of the presenting sym ptoms and the clinical findings. Elevated TnI levels indicate myocardial damage, but are not specific for ischemic heart disease. Elevated TnI levels are seen in patients with other cardiac conditions (including myocarditis and congestive h eart failure), and slight TnI elevations occur in patients with other conditions , including sepsis, renal failure, acidosis, acute neurological disease, and per sistent tachyarrhythmia.BASIC METABOLIC [id number] 05:24:00* Test Item Value Reference Range Comments SODIUM (BEAKER) (test ncwz=548) 134 meq/L 136-145 POTASSIUM (BEAKER) (test nfwo=170) 3.9 meq/L 3.5-5.1 CHLORIDE (BEAKER) (test adjm=674) 103 meq/L 98-107 CO2 (BEAKER) (test psza=335) 23 meq/L 22-29 BLOOD UREA NITROGEN (BEAKER) (test hwpk=957) 5 mg/dL 7-21 CREATININE (BEAKER) (test hukl=348) 0.69 mg/dL 0.57-1.25 GLUCOSE RANDOM (BEAKER) (test rjzs=564) 107 mg/dL 70-105 CALCIUM (BEAKER) (test mojp=874) 8.6 mg/dL 8.4-10.2 EGFR (BEAKER) (test snqe=8263) 119 mL/min/1.73 sq m ESTIMATED GFR IS NOT ACCURATE CREATININE CLEARANCE IN PREDICTING GLOMERULAR FILTRATION RATE. ESTIMATED GFR IS NOT APPLICABLE FOR DIALYSIS PATIENTS. CBC W/PLT COUNT & AUTO [id number] 05:07:00* Test Item Value Reference Range Comments WHITE BLOOD CELL COUNT (BEAKER) (test tzjo=284) 11.6 K/ L 3.5-10.5 RED BLOOD CELL COUNT (BEAKER) (test vvec=741) 3.08 M/ L 3.93-5.22 HEMOGLOBIN (BEAKER) (test qpjy=949) 8.2 GM/DL 11.2-15.7 HEMATOCRIT (BEAKER) (test pmzr=158) 25.4 % 34.1-44.9 MEAN CORPUSCULAR VOLUME (BEAKER) (test lzjv=966) 82.5 fL 79.4-94.8 MEAN CORPUSCULAR HEMOGLOBIN (BEAKER) (test uwaq=604) 26.6 pg 25.6-32.2 MEAN CORPUSCULAR HEMOGLOBIN CONC (BEAKER) (test irpf=864) 32.3 GM/DL 32.2-35.5 RED CELL DISTRIBUTION WIDTH (BEAKER) (test tzft=951) 18.8 % 11.7-14.4 PLATELET COUNT (BEAKER) (test xwxy=960) 398 K/CU MM 150-450 MEAN PLATELET VOLUME (BEAKER) (test yoar=258) 9.6 fL 9.4-12.3 NUCLEATED RED BLOOD CELLS (BEAKER) (test xfbr=741) 0 /100 WBC 0-0 NEUTROPHILS RELATIVE PERCENT (BEAKER) (test xsoi=176) 65 % LYMPHOCYTES RELATIVE PERCENT (BEAKER) (test mcpv=428) 24 % MONOCYTES RELATIVE PERCENT (BEAKER) (test pubm=445) 10 % EOSINOPHILS RELATIVE PERCENT (BEAKER) (test tflr=503) 1 % BASOPHILS RELATIVE PERCENT (BEAKER) (test enns=123) 1 % NEUTROPHILS ABSOLUTE COUNT (BEAKER) (test aajd=020) 7.55 K/ L 1.56-6.13 LYMPHOCYTES ABSOLUTE COUNT (BEAKER) (test whqz=613) 2.77 K/ L 1.18-3.74 MONOCYTES ABSOLUTE COUNT (BEAKER) (test ahjl=883) 1.11 K/ L 0.24-0.36 EOSINOPHILS ABSOLUTE COUNT (BEAKER) (test jrmg=921) 0.07 K/ L 0.04-0.36 BASOPHILS ABSOLUTE COUNT (BEAKER) (test lsyo=426) 0.06 K/ L 0.01-0.08 IMMATURE GRANULOCYTES-RELATIVE PERCENT (BEAKER) (test svog=3886) 1 % 0-1 RAD, CHEST, 1 VIEW, NON [id number] 04:37:00Reason for exam:->concern for acute chest syndromeShould this be performed at the bedside?->YesFINAL REPORT EXAMINATION: AP PORTABLE CHEST RADIOGRAPH CLINICAL INDICATION: Chest pain IMPRESSION: Compared with 03/31/2017 Tip of the right jugular Port-A-Cath projects along the expected course of the superior vena cava. Lung volumes have decreased in the interval. No definite evidence of pulm onary edema, discrete pneumonia, significant pleural effusion or pneumothorax. C ardiac and mediastinal contours are grossly stable allowing for the loss of lung volume. Signed: Thien Mckeon MDReport Verified Date/Time: 04/02/2017 04:37:32 Reading Location: [address] Reading Room Electronically rosa d by: THIEN MCKEON M.D. on 04/02/2017 04:37 AM BASIC METABOLIC [id number] 07:33:00* Test Item Value Reference Range Comments SODIUM (BEAKER) (test kmpy=659) 137 meq/L 136-145 POTASSIUM (BEAKER) (test hbhq=935) 4.0 meq/L 3.5-5.1 CHLORIDE (BEAKER) (test wrtp=241) 109 meq/L 98-107 CO2 (BEAKER) (test xsqr=458) 21 meq/L 22-29 BLOOD UREA NITROGEN (BEAKER) (test cdux=777) 6 mg/dL 7-21 CREATININE (BEAKER) (test ghnx=182) 0.67 mg/dL 0.57-1.25 GLUCOSE RANDOM (BEAKER) (test joco=832) 124 mg/dL 70-105 CALCIUM (BEAKER) (test fpkk=790) 7.8 mg/dL 8.4-10.2 EGFR (BEAKER) (test lvki=4532) 123 mL/min/1.73 sq m ESTIMATED GFR IS NOT ACCURATE CREATININE CLEARANCE IN PREDICTING GLOMERULAR FILTRATION RATE. ESTIMATED GFR IS NOT APPLICABLE FOR DIALYSIS PATIENTS. RETICULOCYTE [id number] 05:53:00* Test Item Value Reference Range Comments RETICULOCYTE COUNT PCT (BEAKER) (test boxy=317) 4.3 % 0.5-1.7 CBC W/PLT COUNT & AUTO [id number] 05:53:00* Test Item Value Reference Range Comments WHITE BLOOD CELL COUNT (BEAKER) (test blut=992) 9.0 K/ L 3.5-10.5 RED BLOOD CELL COUNT (BEAKER) (test vyga=891) 3.16 M/ L 3.93-5.22 HEMOGLOBIN (BEAKER) (test yxnm=840) 8.3 GM/DL 11.2-15.7 HEMATOCRIT (BEAKER) (test qxui=299) 26.5 % 34.1-44.9 MEAN CORPUSCULAR VOLUME (BEAKER) (test zemx=730) 83.9 fL 79.4-94.8 MEAN CORPUSCULAR HEMOGLOBIN (BEAKER) (test alow=974) 26.3 pg 25.6-32.2 MEAN CORPUSCULAR HEMOGLOBIN CONC (BEAKER) (test xvtq=155) 31.3 GM/DL 32.2-35.5 RED CELL DISTRIBUTION WIDTH (BEAKER) (test nohu=972) 18.9 % 11.7-14.4 PLATELET COUNT (BEAKER) (test gskw=956) 357 K/CU MM 150-450 MEAN PLATELET VOLUME (BEAKER) (test zyzt=480) 9.7 fL 9.4-12.3 NUCLEATED RED BLOOD CELLS (BEAKER) (test kjpq=045) 0 /100 WBC 0-0 NEUTROPHILS RELATIVE PERCENT (BEAKER) (test ixfz=542) 49 % LYMPHOCYTES RELATIVE PERCENT (BEAKER) (test uxyw=711) 39 % MONOCYTES RELATIVE PERCENT (BEAKER) (test kffc=534) 10 % EOSINOPHILS RELATIVE PERCENT (BEAKER) (test zlnd=747) 1 % BASOPHILS RELATIVE PERCENT (BEAKER) (test vvji=388) 1 % NEUTROPHILS ABSOLUTE COUNT (BEAKER) (test pcpt=889) 4.42 K/ L 1.56-6.13 LYMPHOCYTES ABSOLUTE COUNT (BEAKER) (test nlog=117) 3.50 K/ L 1.18-3.74 MONOCYTES ABSOLUTE COUNT (BEAKER) (test agdg=887) 0.91 K/ L 0.24-0.36 EOSINOPHILS ABSOLUTE COUNT (BEAKER) (test kqbp=062) 0.08 K/ L 0.04-0.36 BASOPHILS ABSOLUTE COUNT (BEAKER) (test efke=632) 0.08 K/ L 0.01-0.08 IMMATURE GRANULOCYTES-RELATIVE PERCENT (BEAKER) (test bqaz=0477) 0 % 0-1 URINALYSIS W/ REFLEX URINE [id number] 13:56:00* Test Item Value Reference Range Comments COLOR (BEAKER) (test mwew=143) Yellow CLARITY (BEAKER) (test oyes=415) Clear SPECIFIC GRAVITY UA (BEAKER) (test zcty=638) 1.011 1.001-1.035 PH UA (BEAKER) (test nrhh=986) 5.5 5.0-8.0 PROTEIN UA (BEAKER) (test uznw=805) Negative Negative GLUCOSE UA (BEAKER) (test fwsi=325) Negative Negative KETONES UA (BEAKER) (test sfbv=867) Negative Negative BILIRUBIN UA (BEAKER) (test kvxi=246) Negative Negative BLOOD UA (BEAKER) (test gbpb=970) Negative Negative NITRITE UA (BEAKER) (test xjrc=976) Negative Negative LEUKOCYTE ESTERASE UA (BEAKER) (test tcgh=942) Trace Negative UROBILINOGEN UA (BEAKER) (test xlwp=840) 8.0 mg/dL 0.2-1.0 RBC UA (BEAKER) (test yxmu=769) 0 /HPF WBC UA (BEAKER) (test hmbb=958) 2 /HPF BACTERIA (BEAKER) (test nblc=857) Rare SQUAMOUS EPITHELIAL (BEAKER) (test wdwd=193) 3 /HPF SOURCE(BEAKER) (test lqji=4013) SCREEN, [id number] 13:49:00* Test Item Value Reference Range Comments TEST URINE (BEAKER) (test jazt=593) Negative BASIC METABOLIC [id number] 12:50:00* Test Item Value Reference Range Comments SODIUM (BEAKER) (test rldg=056) 136 meq/L 136-145 POTASSIUM (BEAKER) (test fldw=937) 4.3 meq/L 3.5-5.1 Specimen slightly hemolyzed CHLORIDE (BEAKER) (test fpre=563) 107 meq/L 98-107 CO2 (BEAKER) (test ikox=939) 22 meq/L 22-29 BLOOD UREA NITROGEN (BEAKER) (test bxyi=070) 8 mg/dL 7-21 CREATININE (BEAKER) (test wnqy=730) 0.68 mg/dL 0.57-1.25 Specimen slightly hemolyzed GLUCOSE RANDOM (BEAKER) (test eylc=448) 95 mg/dL 70-105 CALCIUM (BEAKER) (test brae=084) 9.1 mg/dL 8.4-10.2 EGFR (BEAKER) (test zgao=5132) 121 mL/min/1.73 sq m ESTIMATED GFR IS NOT ACCURATE CREATININE CLEARANCE IN PREDICTING GLOMERULAR FILTRATION RATE. ESTIMATED GFR IS NOT APPLICABLE FOR DIALYSIS PATIENTS. CBC W/PLT COUNT & AUTO [id number] 12:36:00* Test Item Value Reference Range Comments WHITE BLOOD CELL COUNT (BEAKER) (test bvat=638) 8.4 K/ L 3.5-10.5 RED BLOOD CELL COUNT (BEAKER) (test aqhs=255) 3.79 M/ L 3.93-5.22 HEMOGLOBIN (BEAKER) (test iktp=573) 10.0 GM/DL 11.2-15.7 HEMATOCRIT (BEAKER) (test cdnw=396) 31.4 % 34.1-44.9 MEAN CORPUSCULAR VOLUME (BEAKER) (test msoy=578) 82.8 fL 79.4-94.8 MEAN CORPUSCULAR HEMOGLOBIN (BEAKER) (test iwbn=564) 26.4 pg 25.6-32.2 MEAN CORPUSCULAR HEMOGLOBIN CONC (BEAKER) (test hkkl=431) 31.8 GM/DL 32.2-35.5 RED CELL DISTRIBUTION WIDTH (BEAKER) (test gnpa=485) 18.9 % 11.7-14.4 PLATELET COUNT (BEAKER) (test rxgs=201) 469 K/CU MM 150-450 MEAN PLATELET VOLUME (BEAKER) (test joju=117) 9.5 fL 9.4-12.3 NUCLEATED RED BLOOD CELLS (BEAKER) (test icez=389) 0 /100 WBC 0-0 NEUTROPHILS RELATIVE PERCENT (BEAKER) (test usjp=724) 60 % LYMPHOCYTES RELATIVE PERCENT (BEAKER) (test gimn=104) 29 % MONOCYTES RELATIVE PERCENT (BEAKER) (test kuqi=056) 9 % EOSINOPHILS RELATIVE PERCENT (BEAKER) (test uzzq=119) 0 % BASOPHILS RELATIVE PERCENT (BEAKER) (test dkrc=703) 1 % NEUTROPHILS ABSOLUTE COUNT (BEAKER) (test fiiz=890) 4.99 K/ L 1.56-6.13 LYMPHOCYTES ABSOLUTE COUNT (BEAKER) (test bwxs=187) 2.43 K/ L 1.18-3.74 MONOCYTES ABSOLUTE COUNT (BEAKER) (test wsdz=880) 0.77 K/ L 0.24-0.36 EOSINOPHILS ABSOLUTE COUNT (BEAKER) (test ykst=286) 0.03 K/ L 0.04-0.36 BASOPHILS ABSOLUTE COUNT (BEAKER) (test eztm=560) 0.10 K/ L 0.01-0.08 IMMATURE GRANULOCYTES-RELATIVE PERCENT (BEAKER) (test prsj=2395) 0 % 0-1 RETICULOCYTE [id number] 12:36:00* Test Item Value Reference Range Comments RETICULOCYTE COUNT PCT (BEAKER) (test klrk=283) 4.9 % 0.5-1.7 RAD, CHEST, 1 VIEW, NON [id number] 11:49:00Reason for exam:->SICKLE CELL PAIN CRISISReason for exam:->shortness of breathIs the patient ?-> NoShould this be performed at the bedside?->YesFINAL REPORT Chest one view. Clinical history: SICKLE CELL PAIN CRISISshortness of breath Comparison: May 26, 2016 Discussion: A frontal chest is provided. A right-sided Port-A-Cath is in stable position. Cardiomediastinal contours are unremarkable. There is mild interstitial prominence, nonspecific. No discrete consolidation is identified. No pneumothorax, or significant pleural effusion. No acute osseous abnormality identified. Signed: Afsaneh Heredia Verified Date/Time: 03/31/2017 11:49:08 Reading Location: [facility] Radiology Reading Room W/PLT COUNT & AUTO [id number] 17:54:00* Test Item Value Reference Range Comments WHITE BLOOD CELL COUNT (BEAKER) (test znym=411) 6.8 K/ L 4.0-10.0 RED BLOOD CELL COUNT (BEAKER) (test bhqi=264) 3.55 M/ L 4.00-5.00 HEMOGLOBIN (BEAKER) (test nrhx=224) 10.0 GM/DL 12.0-15.0 HEMATOCRIT (BEAKER) (test wsoz=723) 30.6 % 36.0-45.0 MEAN CORPUSCULAR VOLUME (BEAKER) (test hiiv=646) 86.3 fL 82.0-99.0 MEAN CORPUSCULAR HEMOGLOBIN (BEAKER) (test abgb=013) 28.3 pg 27.0-33.0 MEAN CORPUSCULAR HEMOGLOBIN CONC (BEAKER) (test dsgt=974) 32.7 GM/DL 32.0-36.0 RED CELL DISTRIBUTION WIDTH (BEAKER) (test jzaf=505) 17.3 % 10.3-14.2 PLATELET COUNT (BEAKER) (test nwnp=714) 307 K/CU MM 150-430 MEAN PLATELET VOLUME (BEAKER) (test vjrd=495) 7.3 fL 6.5-10.5 NUCLEATED RED BLOOD CELLS (BEAKER) (test yaxf=031) 0 /100 WBC 0-0 NEUTROPHILS RELATIVE PERCENT (BEAKER) (test xaof=387) 44 % LYMPHOCYTES RELATIVE PERCENT (BEAKER) (test fwsq=699) 44 % MONOCYTES RELATIVE PERCENT (BEAKER) (test ibfa=930) 10 % EOSINOPHILS RELATIVE PERCENT (BEAKER) (test ygjv=371) 1 % BASOPHILS RELATIVE PERCENT (BEAKER) (test aqfs=218) 2 % NEUTROPHILS ABSOLUTE COUNT (BEAKER) (test ghyi=361) 2.95 K/ L 1.80-8.00 LYMPHOCYTES ABSOLUTE COUNT (BEAKER) (test gzdw=140) 2.99 K/ L 1.48-4.50 MONOCYTES ABSOLUTE COUNT (BEAKER) (test jxhy=454) 0.65 K/ L 0.00-1.30 EOSINOPHILS ABSOLUTE COUNT (BEAKER) (test xvxe=500) 0.05 K/ L 0.00-0.50 BASOPHILS ABSOLUTE COUNT (BEAKER) (test wojj=963) 0.15 K/ L 0.00-0.20 SCREEN, [id number] 14:14:00* Test Item Value Reference Range Comments TEST URINE (BEAKER) (test kqex=633) Negative URINALYSIS W/ [id number] 14:10:00* Test Item Value Reference Range Comments COLOR (BEAKER) (test dfiw=398) Yellow CLARITY (BEAKER) (test mvvc=722) Clear SPECIFIC GRAVITY UA (BEAKER) (test kvyw=649) 1.007 1.001-1.035 PH UA (BEAKER) (test xkds=287) 6.0 5.0-8.0 PROTEIN UA (BEAKER) (test ewdh=310) Negative Negative GLUCOSE UA (BEAKER) (test lahs=827) Negative Negative KETONES UA (BEAKER) (test hhae=677) Negative Negative BILIRUBIN UA (BEAKER) (test wmlm=548) Negative Negative BLOOD UA (BEAKER) (test xzcg=422) Negative Negative NITRITE UA (BEAKER) (test gjdk=138) Negative Negative LEUKOCYTE ESTERASE UA (BEAKER) (test szbq=666) Negative Negative UROBILINOGEN UA (BEAKER) (test thfl=410) 0.2 mg/dL 0.2-1.0 RBC UA (BEAKER) (test iblt=282) < /HPF WBC UA (BEAKER) (test rane=756) < /HPF SQUAMOUS EPITHELIAL (BEAKER) (test ycep=538) 2 /HPF SOURCE(BEAKER) (test hdxj=1260) Urine, Clean Catch RETICULOCYTE [id number] 12:01:00* Test Item Value Reference Range Comments RETICULOCYTE COUNT PCT (BEAKER) (test yotd=224) 3.6 % 0.4-2.9 BASIC METABOLIC [id number] 11:59:00* Test Item Value Reference Range Comments SODIUM (BEAKER) (test xnyq=469) 140 meq/L 136-145 POTASSIUM (BEAKER) (test gmgh=718) 3.3 meq/L 3.5-5.1 CHLORIDE (BEAKER) (test hnsa=965) 111 meq/L 98-107 CO2 (BEAKER) (test jhkj=084) 23 meq/L 22-29 BLOOD UREA NITROGEN (BEAKER) (test jjou=310) 8 mg/dL 7-21 CREATININE (BEAKER) (test vabh=835) 0.72 mg/dL 0.57-1.25 GLUCOSE RANDOM (BEAKER) (test wtcp=072) 89 mg/dL 70-105 CALCIUM (BEAKER) (test dbwf=336) 8.3 mg/dL 8.4-10.2 EGFR (BEAKER) (test dnjc=2929) 113 mL/min/1.73 sq m ESTIMATED GFR IS NOT ACCURATE CREATININE CLEARANCE IN PREDICTING GLOMERULAR FILTRATION RATE. ESTIMATED GFR IS NOT APPLICABLE FOR DIALYSIS PATIENTS. BASIC METABOLIC [id number] 11:55:00* Test Item Value Reference Range Comments SODIUM (BEAKER) (test vukf=318) 136 meq/L 136-145 POTASSIUM (BEAKER) (test pxde=728) 3.3 meq/L 3.5-5.1 CHLORIDE (BEAKER) (test iydf=360) 109 meq/L 98-107 CO2 (BEAKER) (test gzne=784) 19 meq/L 22-29 BLOOD UREA NITROGEN (BEAKER) (test nkeb=795) 8 mg/dL 7-21 CREATININE (BEAKER) (test cxxv=948) 0.75 mg/dL 0.57-1.25 GLUCOSE RANDOM (BEAKER) (test vfja=462) 83 mg/dL 70-105 CALCIUM (BEAKER) (test mjva=123) 8.4 mg/dL 8.4-10.2 EGFR (BEAKER) (test wtvq=7191) 108 mL/min/1.73 sq m ESTIMATED GFR IS NOT ACCURATE CREATININE CLEARANCE IN PREDICTING GLOMERULAR FILTRATION RATE. ESTIMATED GFR IS NOT APPLICABLE FOR DIALYSIS PATIENTS.
[2019-01-24] MEDS ORDERED: SODIUM CHLORIDE 0.9% 1000ML 1,000 ML IV STA (20:10)
[2019-01-24] MEDS ORDERED: FAMOTIDINE 20 MG/2 ML VIAL IV ONE ×2 (20:15→20:45)
[2019-01-24] MEDS ORDERED: PROMETHAZINE 12.5MG/ NACL 0.9% 12.5 MG/50 ML BAG IV ONE (20:15)
[2019-01-24] MEDS ORDERED: HYDROCODONE/APAP 5MG-325MG TAB PO ONE (20:15)
[2019-01-24] MEDS ORDERED: KETOROLAC TROMETHAMINE 30 MG/ML VIAL IV ONE (20:15)
--- NOTE | 2019-01-24 20:35 | NUR ---
urine sent to lab
[2019-01-24] MEDS ORDERED: KETOROLAC TROMETHAMINE 30 MG/ML VIAL ONE (20:43)
[2019-01-24] MEDS ORDERED: PROMETHAZINE HCL (IM) 25 MG/ML VIAL ONE (20:44)
[2019-01-24] MEDS ORDERED: SODIUM CHLORIDE 0.9% 1000ML 1,000 ML ONE (20:45)
[2019-01-24] MEDS ORDERED: HYDROCODONE/APAP 5MG-325MG TAB ONE (20:45)
[2019-01-24] MEDS ORDERED: POTASSIUM CHLORIDE 20 MEQ TAB CR PO STA (21:01)
--- NOTE | 2019-01-24 21:21 | Diagnostic Imaging Report ---
EXAMINATION: Chest PA and lateral views INDICATION: Sickle cell pain. ^[id number] ^[id number] COMPARISON: Right chest Port-A-Cath with distal tip projected on the SVC proximal to the cavoatrial junction FINDINGS: TUBES and LINES: None. LUNGS: Lungs are well inflated. Patchy density in the left lower lobe on the PA view without corresponding abnormality on the lateral view suggestive of summation of shadows. There is no evidence of pneumonia or pulmonary edema. PLEURA: No pleural effusion or pneumothorax. HEART AND MEDIASTINUM: The cardiomediastinal silhouette is unremarkable. BONES AND SOFT TISSUES: No acute osseous lesion. Soft tissues are unremarkable. UPPER ABDOMEN: No free air under the diaphragm. IMPRESSION: No acute thoracic abnormality. Signed by: Dr. Rxoana Gomez M.D. on 01/24/2019 9:17 PM
[2019-01-24] MEDS ORDERED: POTASSIUM CHLORIDE 20 MEQ TAB CR PO ONE (21:36)
[2019-01-24 21:44] VITALS: BP 138/85
--- NOTE | 2019-01-24 21:46 | NUR ---
pt given juice and crackers. pt is waiting on ride R/T being given narcotics in the ER for pain.
--- NOTE | 2019-01-24 22:03 | NUR ---
pt observed getting into her car and driving, after being told that she should not drive r/t medications given in the ER. Pt stated she has no way home. Pt told this RN before medications being given that she had someone coming to get her. Pt instructed that if she gets stopped by the police or has a wreck that she would be responsible for driving while impaired. pt verbalized understanding. pt noted to have steady gait and clear speech.
== END 2019-01-24 21:37 | disposition home or self-care (01) ==
LOC: FSED 20:00
DX: R07.89 Other chest pain (principal); E87.6 Hypokalemia
CPT/HCPCS: 36556; 71046; 80053; 80307; 81003; 81025; 82553; 84484; 85025; 85610; 93005; 96374; 96375; 99284; J1885; J2550; J7030